=== PATIENT | female | born 1960 | race African-American/Black ===

== ENCOUNTER 2016-06-07 10:18 | Inpatient (IN) | payer MEDICARE, OTHER ==
[~2016-06-07] VITALS: Ht 170.2 cm; Wt 68.0 kg
[~2016-06-07 10:18] MED LIST: AUGMENTIN 500-1 EACH ORAL; GABAPENTIN300 MG ORAL; METHYLPREDNISOLO4 M2 PO
[2016-06-07 10:30] VITALS: BP 132/70
[2016-06-07] MEDS ORDERED: Solu-MEDROL 125mg Inj IVP ONE (10:45)
--- NOTE | 2016-06-07 10:54 | Emergency Room Report ---
History of Present Illness General Chief Complaint: Dyspnea/Respdistress Source: Patient Present Illness HPI Patient is a 55-year-old female who presented after increased difficulty breathing. Patient gradual onset of symptoms of the past few days. Patient stated that she been having difficulty with her breathing since the recently stopped raining. Patient had been taking steroids but had been off for several days due to up coming testing. The patient denied any fever. She reported having increased difficulty breathing. She was noted to have a low oxygen saturation at home. Allergies: Coded Allergies: MORPHINE (Verified Allergy, Severe, Itching, 12/09/14) BUDESONIDE (Verified Adverse Reaction, Severe, 12/09/14) shaking FORMOTEROL (Verified Adverse Reaction, Severe, 12/09/14) shaking OXYCODONE (Verified Adverse Reaction, Severe, 12/09/14) FEELS BAD/WEAK Patient History Past Medical History: see triage record Last Menstrual Period: na Reviewed Nursing Documentation: PMH: Agreed, PSxH: Agreed Nursing Documentation-PMH Past Medical History: No History, Except For Hx COPD: Yes Hx Cancer: No Hx Spinal Cord Injury: Yes Hx Memory Loss: Yes Hx Tremors: Yes Hx Vertigo: Yes Hx Dizziness: Yes Hx Headaches: Yes Hx Weakness: Yes Review of Systems All Other Systems: negative except mentioned in HPI Physical Exam Vital Signs Date Time Temp Pulse Resp B/P Pulse Ox O2 Delivery O2 Flow Rate FiO2 06/07/16 10:22 98.6 99 32 119/65 88 Room Air Sp02 EP Interpretation: reviewed, abnormal - 88 General Appearance: alert, GCS 15, moderate distress Eyes: bilateral eye PERRL ENT: normal voice, other - white patches to oropharynx Neck: full range of motion, supple Respiratory: wheezing, expiration Cardiovascular #1: normal peripheral pulses, regular rate, rhythm, no edema Gastrointestinal: normal bowel sounds, non tender, soft Musculoskeletal: normal inspection, back normal Neurologic: normal inspection, alert, oriented x3, responsive Skin: normal inspection Medical Decision Making Diagnostic Impression: Primary Impression: COPD (chronic obstructive pulmonary disease) with acute bronchitis Additional Impressions: Hypoxia Oral thrush UTI (urinary tract infection) ER Course Patient presented to shortness of breath. Differential included but was not limited to anemia, pneumonia, pneumothorax, myocardial infarction, pericardial effusion, congestive heart failure, acidosis. Because of complexity of patient' s case laboratory testing and imaging studies were ordered. I EKG and rhythm me showed normal sinus rhythm with a rate of [address] or T wave changes. Rhythm strip showed normal sinus rhythm with a rate in the 80s without PVCs or ectopy. Patient is noted to be hypoxic O2 saturation approximately 85- 88%The patient given breathing treatments as well as solu Medrol.Patient was given breathing treatments. Urinalysis was notable for evidence of infection. Patient also appears to have some thrush. Patient was given IV fluids. Dr. Martin was contacted for inpatient management Labs Test 06/07/16 10:57 06/07/16 12:30 White Blood Count 6.7 K/UL (4.8-10.8) Red Blood Count 4.28 M/UL (4.20-5.40) Hemoglobin 12.3 G/DL (12.0-16.0) Hematocrit 41.1 % (37.0-47.0) Mean Corpuscular Volume 96 FL (80-99) Mean Corpuscular Hemoglobin 28.8 PG (27.0-31.0) Mean Corpuscular Hemoglobin Concent 30.1 G/DL (32.0-36.0) Red Cell Distribution Width 17.9 % (11.6-14.8) Platelet Count 287 K/UL (150-450) Mean Platelet Volume 7.4 FL (6.5-10.1) Neutrophils (%) (Auto) 58.0 % (45.0-75.0) Lymphocytes (%) (Auto) 32.5 % (20.0-45.0) Monocytes (%) (Auto) 6.7 % (1.0-10.0) Eosinophils (%) (Auto) 1.0 % (0.0-3.0) Basophils (%) (Auto) 1.8 % (0.0-2.0) Sodium Level 144 mEQ/L (135-145) Potassium Level 4.1 mEQ/L (3.4-4.9) Chloride Level 101 mEQ/L (98-107) Carbon Dioxide Level 32 mEQ/L (20-30) Anion Gap 11 (5-15) Blood Urea Nitrogen 6 mg/dL (7-23) Creatinine 0.6 mg/dL (0.5-0.9) Estimat Glomerular Filtration Rate > 60 mL/min (>60) Glucose Level 98 mg/dL (74-106) Lactic Acid Level 1.20 mmol/L (0.66-2.22) Calcium Level 8.9 mg/dL (8.6-10.2) Total Bilirubin < 0.2 mg/dL (0.0-1.2) Aspartate Amino Transf (AST/SGOT) 17 U/L (5-40) Alanine Aminotransferase (ALT/SGPT) 14 U/L (3-33) Alkaline Phosphatase 66 U/L (35-104) Pro-B-Type Natriuretic Peptide 185 pg/mL (0-125) Total Protein 6.2 g/dL (6.6-8.7) Albumin 3.8 g/dL (3.5-5.2) Globulin 2.4 g/dL Albumin/Globulin Ratio 1.5 (1.0-2.7) Urine Color Pale yellow Urine Appearance Clear Urine pH 6 (4.5-8.0) Urine Specific [place] 1.015 (1.005-1.035) Urine Protein 1+ (NEGATIVE) Urine Glucose (UA) Negative (NEGATIVE) Urine Ketones Negative (NEGATIVE) Urine Occult Blood 4+ (NEGATIVE) Urine Nitrite Negative (NEGATIVE) Urine Bilirubin Negative (NEGATIVE) Urine Urobilinogen Normal MG/DL (0.0-1.0) Urine Leukocyte Esterase 3+ (NEGATIVE) Urine RBC 15-20 /HPF (0 - 2) Urine WBC 10-15 /HPF (0 - 2) Urine Squamous Epithelial Cells Few /LPF (NONE/OCC) Urine Bacteria Few /HPF (NONE) Rhythm Strip Diag. Results EP Interpretation: yes Rhythm: NSR, no PVC's, no ectopy Chest X-Ray Diagnostic Results EP Interpretation: No Findings: no effusion, no pneumothorax, no acute cardiopulmonary disease Number of Views: 1 Last Vital Signs Date Time Temp Pulse Resp B/P Pulse Ox O2 Delivery O2 Flow Rate FiO2 06/07/16 10:22 98.6 99 32 119/65 88 Room Air Status: unchanged Disposition: ADMITTED INPATIENT Condition: Serious Referrals: LEATHA MARTIN (PCP) James Chang Jun 07, 2016 10:54
[2016-06-07] MEDS: DuoNeb 0.5-3(2.5)mg/3ml neb HHN SCH ×15 (11:14→14:30)
[2016-06-07 11:22] LABS: BASOPHILS % (AUTO) 1.8 % (0.0-2.0); LYMPHOCYTES % (AUTO) 32.5 % (20.0-45.0); MEAN CORPUSCULAR HEMOGLOBIN 28.8 PG (27.0-31.0); MEAN CORPUSCULAR HGB CONC 30.1 G/DL (32.0-36.0); MEAN CORPUSCULAR VOLUME 96 FL (80-99); MEAN PLATELET VOLUME 7.4 FL (6.5-10.1); MONOCYTES % (AUTO) 6.7 % (1.0-10.0); PLATELET COUNT 287 K/UL (150-450); RED BLOOD COUNT 4.28 M/UL (4.20-5.40); RED CELL DISTRIBUTION WIDTH 17.9 % (11.6-14.8); WHITE BLOOD COUNT 6.7 K/UL (4.8-10.8)
[2016-06-07 11:33] LABS: ALANINE AMINOTRANSFERASE 14 U/L (3-33); ALBUMIN/GLOBULIN RATIO 1.5 (1.0-2.7); ANION GAP 11 (5-15); ASPARTATE AMINO TRANSFERASE 17 U/L (5-40); CALCIUM 8.9 mg/dL (8.6-10.2); CARBON DIOXIDE 32 mEQ/L (20-30); CHLORIDE 101 mEQ/L (98-107); CREATININE 0.6 mg/dL (0.5-0.9); GLOMERULAR FILTRATION RATE > 60 mL/min (>60); HEMOLYSIS 7; POTASSIUM 4.1 mEQ/L (3.4-4.9); SODIUM 144 mEQ/L (135-145); TOTAL PROTEIN 6.2 g/dL (6.6-8.7)
[2016-06-07 12:45] LABS: APPEARANCE,URINE CLEAR; KETONES,URINE NEGATIVE (NEGATIVE); LEUKOCYTE ESTERASE ,URINE 3+ (NEGATIVE); NITRITE,URINE NEGATIVE (NEGATIVE); PH,URINE 6 (4.5-8.0); PROTEIN,URINE 1+ (NEGATIVE); UROBILINOGEN,URINE NORMAL MG/DL (0.0-1.0)
[2016-06-07 12:53] LABS: BACTERIA,URINE FEW /HPF; RBC,URINE 15-20 /HPF (0 - 2); SQUAMOUS EPITHELIAL CELL,UR FEW /LPF (NONE/OCC)
[2016-06-07] MEDS ORDERED: cefTRIAXone 1 GM in NS 55 ML IVPB ONE (13:00)
[2016-06-07] MEDS ORDERED: SYMBICORT 16010.2 G1 IH (13:00)
[2016-06-07] MEDS ORDERED: DALIRESP500 MCG PO (13:07)
[2016-06-07] MEDS ORDERED: SIMVASTATIN10 MG ORAL (13:08)
[2016-06-07] MEDS ORDERED: SERTRALINE HCL50 MG ORAL (13:16)
[2016-06-07] MEDS ORDERED: VENTOLIN HFA18 GM INH (13:18)
[2016-06-07] MEDS ORDERED: OPSUMIT10 MG PO (13:20)
[2016-06-07] MEDS ORDERED: OMEPRAZOLE40 M1 ORAL (13:21)
[2016-06-07] MEDS ORDERED: KLONOPIN1 MG ORAL (13:22)
[2016-06-07] MEDS ORDERED: BACLOFEN10 MG ORAL (13:23)
[2016-06-07] MEDS ORDERED: IMITREX50 MG ORAL (13:26)
[2016-06-07] MEDS ORDERED: LORATADINE10 M2 PO (13:26)
[2016-06-07] MEDS ORDERED: VITAMIN B122500 MCG PO (13:30)
[2016-06-07] MEDS ORDERED: VITAMIN D1000 UNI1 ORAL (13:31)
[2016-06-07] MEDS ORDERED: VITAMIN C500 M1 ORAL (13:32)
[2016-06-07] MEDS ORDERED: PRIMIDONE50 MG PO (13:34)
[2016-06-07] MEDS ORDERED: CENTRUM SILVER1 EAC6 PO (13:35)
[2016-06-07] MEDS ORDERED: PROBIOTIC1 EAC2 PO (13:37)
[2016-06-07] MEDS ORDERED: ASPIR 8181 MG ORAL (13:40)
[2016-06-07] MEDS ORDERED: FLAX SEED OIL1000 MG PO (13:41)
--- NOTE | 2016-06-07 13:56 | Diagnostic Imaging Report ---
Indication: SOB Technique: One view of the chest Comparison: 01/12/2016 Findings: Lungs and pleural spaces are clear. Heart size is normal. Cervical spine fusion hardware is again demonstrated. There is no significant change Impression: No acute process
[2016-06-07] MEDS ORDERED: SPIRIVA18 MCG INH (14:28)
[2016-06-07] MEDS ORDERED: NS 55 ML IV ONE (15:12)
[2016-06-07 15:26] VITALS: BP 164/85
[2016-06-07] MEDS ORDERED: guaiFENesin w/Codeine 5ml Liq ud ORAL PRN (16:00)
--- NOTE | 2016-06-07 16:23 | Consultation ---
Consult Note Consult Note 55-year-old female who presented with increasing in respiratory distress and low oxygen levels. Patient notes gradual onset of symptoms of the past few days. Patient stated that she been having difficulty with her breathing with the wet weather. patient denies fevers or chills. Patient had been taking steroids but has not improved. The patient denied any ill contacts. She reported having increased difficulty breathing from her baselie. She has significantly advanced COPD Active Medications: CVS MELATONIN CAPS (MELATONIN CAPS) Take one tablet daily FLAX SEED OIL CAPS (FLAXSEED (LINSEED) CAPS) Take one tablet daily NASONEX 50 MCG/ACT NASAL SUSP (MOMETASONE FUROATE) 2 puffs qd CLARITIN 10 MG TABS (LORATADINE) Take one tablet daily EQ NICOTINE 21 MG/24HR TRANS PT24 (NICOTINE) 1 daily CVS VITAMIN C TABS (ASCORBIC ACID TABS) Take one tablet daily VITAMIN D3 5000 UNIT ORAL CAPS (CHOLECALCIFEROL) 1 tab qd B-12 500 MCG ORAL TABS (CYANOCOBALAMIN) 1 tab qd PRIMIDONE 50 MG TABS (PRIMIDONE) 1 tab bid CENTRUM SILVER ULTRA WOMENS TABS (MULTIPLE VITAMINS-MINERALS) Take one tablet daily VENTOLIN HFA 108 (90 BASE) MCG/ACT INH AERS (ALBUTEROL SULFATE) 2 puff qid prn OPSUMIT 10 MG ORAL TABS (MACITENTAN) 1 PO QD ALBUTEROL SULFATE 0.083 % NEBU (ALBUTEROL SULFATE) 1 vial bid BACLOFEN 10 MG TABS (BACLOFEN) Take one tablet three times daily ASPIR-81 81 MG ORAL TBEC (ASPIRIN) 1 qd DALIRESP 500 MCG TABS (ROFLUMILAST) 1 PO DAILY SIMVASTATIN 10 MG TABS (SIMVASTATIN) 1 tab po at bedtime OMEPRAZOLE 40 MG CPDR (OMEPRAZOLE) 1 qd SPIRIVA HANDIHALER 18 MCG CAPS (TIOTROPIUM BROMIDE MONOHYDRATE) 1 qd ADVAIR DISKUS 500-50 MCG/DOSE MISC (FLUTICASONE-SALMETEROL) 1 PUFF BID POTASSIUM CHLORIDE HANNAH CR 20 MEQ CR-TABS (POTASSIUM CHLORIDE HANNAH CR) Take one tablet today LEXAPRO 10 MG TABS (ESCITALOPRAM OXALATE) 1 daily CLONAZEPAM 2 MG TABS (CLONAZEPAM) 1 tab qhs Current Allergies (reviewed today): * OXYCONTIN (Critical) * NEURONTIN (Critical) * ADEMPUS (Critical) * MORPHINE (Critical) Past History Past Medical History (reviewed - no changes required): peptic ulcer, chronic headaches, arthritis,tremors, depression, Insomnia, COPD, Pulmonary hypertension, side effect to Revatio-; fall 2013 with left sided pain, herniated disc in lumbar region, muscle atrophy (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) mastoiditis COPD exacerbation 2014 demetrio 05/2015 ER- facial swelling 07/14/2015 ER-kidney stones Surgical History (reviewed - no changes required): 2009 Neck surgery 2012 cervical corpectomy 2010 Neck surgery/fusion 2001 Hysterectomy 1983 1987 Left ovary removed Bilateral carpal tunnel 02/2013 cervical fusion 2015-breast reduction Family History (reviewed - no changes required): Mother-heart disease, Emphysema /COPD, Diabetes Mellitus , Hypertension Father-() paralyzed, Diabetes Mellitus, bladder infection (passed 2016) sister-Diabetes Mellitus younger brother-back problems older brother-Diabetes Mellitus, Hypertension Social History (reviewed - no changes required): MAYUR is on disability. She lives at home in [place]. She is single with 1 child. Risk Factors: Smoked Tobacco Use: Current every day smoker Cigarettes: Yes -- 3/4 pack(s) per day, Year started: 1973 Years smoked: 3 weeks Smokeless Tobacco Use: Former Year started: 1966 Years used: 3 Year quit: 1970 Years Since Last Quit: 47 Passive smoke exposure: no Drug use: no HIV high-risk behavior: no Caffeine use: 0 drinks per day Alcohol use: yes Type: once in a while Drinks per day: social Exercise: yes Times per week: 2 Type of Exercise: PT Seatbelt use: 100 % Sun Exposure: occasionally Review of Systems General: fatigue better Eyes: denies blurring, diplopia, irritation, discharge, vision loss, eye pain, photophobia Ear/Nose/Throat: viral syndrome Cardiovascular: palpitations Respiratory: see HPI Gastrointestinal: Denies nausea, vomiting, diarrhea, constipation, change in bowel habits, abdominal pain, melena, hematochezia, jaundice Genitourinary: kidney stone Musculoskeletal: shoulder pain, headaches, lower back pain has worsened, pain in elbowsand arms Neurologic: vertigo neuropathy Physical Exam 164/86 22 98.4 99% on 2 liters 82 General Appearance: well nourished, well hydrated, mild distress Respiratory Respiratory Effort: no intercostal retractions or use of accessory muscles Palpation: normal fremitus Auscultation: scattered rhonchi and wheezes reduced air entry Cardiovascular Palpation: no thrill or palpable murmurs, no displacement of PMI Auscultation: S1, S2, no murmur, rub, or gallop; Carotid arteries: pulses 2+, symmetric, no bruits Peripheral Circulation: no cyanosis, clubbing, or varicosities mimmal edema Musculoskeletal Gait and Station: able to ambulate independently very alert Assessment Status of Existing Problems: Neuralgia/neuritis Sleep apnea, obstructive Pulmonary hypertension COPD with acute exacerbation Respiratory insufficiency Depression Chronic pain Plan IV solumedrol respiratory care Iv antibiotics resume meds oxygen therapy DVT prophylaxis close follow up LEATHA ARREGUIN Jun 07, 2016 16:23
[2016-06-07 16:43] VITALS: BP 126/81
[2016-06-07] MEDS: Ascorbic Acid 500mg tab ORAL SCH (17:24)
[2016-06-07 18:29] VITALS: BP 118/71
[2016-06-07] MEDS ORDERED: Albuterol ud Inhalation HHN PRN (19:00)
[2016-06-07] MEDS ORDERED: Nystatin Susp 500,000 units/5ml ORAL ONE (20:00)
[2016-06-07] MEDS ORDERED: Sertraline 50mg tab ORAL SCH (21:00)
[2016-06-07] MEDS: Solu-MEDROL 40mg Inj IVP SCH (21:32)
[2016-06-07] MEDS: Heparin 5000 units/ml inj SUBQ SCH (21:35)
[2016-06-07 22:15] VITALS: BP 124/76
[2016-06-08] MEDS: Ascorbic Acid 500mg tab ORAL SCH (08:20)
[2016-06-08] MEDS: Solu-MEDROL 40mg Inj IVP SCH ×2 (08:20→20:43)
[2016-06-08] MEDS: Heparin 5000 units/ml inj SUBQ SCH ×2 (08:21→20:44)
[2016-06-08 08:53] VITALS: BP 119/58
[2016-06-08] MEDS ORDERED: Pneumococcal Vaccine 25mcg/0.5ml IM ONE ×2 (09:00→16:00)
[2016-06-08] MEDS ORDERED: Influenza Virus Vaccine 0.5ml IM ONE ×2 (09:00→16:00)
[2016-06-08] MEDS ORDERED: Vitamin D 1000 IU Tab ORAL SCH (09:00)
[2016-06-08] MEDS ORDERED: SUMAtriptan 50mg tab ORAL PRN ×2 (09:00→14:30)
[2016-06-08] MEDS ORDERED: Aspirin EC 81mg tab ORAL SCH (09:00)
[2016-06-08] MEDS ORDERED: Albuterol 90mcg Inhaler 8gm INH PRN ×2 (09:30→13:30)
--- NOTE | 2016-06-08 11:23 | Cardiology Report ---
APPROVED REPORT EKG Measurement Heart [id number] Normal sinus rhythm Normal ECG
[2016-06-08 11:35] VITALS: BP 104/52
--- NOTE | 2016-06-08 11:50 | Pulmonology Progress Note ---
Assessment/Plan Assessment/Plan Assessment Status of Existing Problems: Neuralgia/neuritis Sleep apnea, obstructive Pulmonary hypertension COPD with acute exacerbation Respiratory insufficiency Depression Chronic pain Plan IV solumedrol as is probiotics respiratory care Iv antibiotics as is resume meds oxygen therapy as is DVT prophylaxis close follow up Subjective Allergies: Coded Allergies: MORPHINE (Verified Allergy, Severe, Itching, 12/09/14) OXYCODONE (Verified Adverse Reaction, Severe, 12/09/14) FEELS BAD/WEAK Subjective wants to go home still very tight sob noted difficult to cough Objective Last 24 Hour Vital Signs Date Time Temp Pulse Resp B/P Pulse Ox O2 Delivery O2 Flow Rate FiO2 06/08/16 11:35 97.7 85 18 104/52 95 Nasal Cannula 2.0 06/08/16 09:20 97.7 06/08/16 09:13 77 18 Nasal Cannula 2.0 28 06/08/16 08:53 97.7 76 18 119/58 94 Nasal Cannula 2.0 06/08/16 07:37 70 06/08/16 04:00 79 06/08/16 00:00 91 06/07/16 22:43 98.6 84 24 124/76 99 Nasal Cannula 2.0 28 06/07/16 22:15 98.6 84 24 124/76 99 Nasal Cannula 2.0 28 06/07/16 18:29 98.6 88 26 118/71 95 Nasal Cannula 2.0 28 06/07/16 16:43 98.6 92 20 126/81 95 Nasal Cannula 2.0 28 06/07/16 15:26 100 20 164/85 94 Nasal Cannula 2.0 Intake and Output 06/07/16 06/08/16 18:59 06:59 Intake Total 555 ml 250 ml Output Total 200 ml Balance 355 ml 250 ml Intake Oral 250 ml IV Total 555 ml Output Urine Total 200 ml # Voids 2 Objective WDWN NAD reduced breath sounds with severe wheeze [id number] without MRG NABS nontender no HSM no CCE neck brace nonfocal but confused Microbiology Date/Time Source Procedure Growth Status 06/07/16 15:10 Nasal Nares Influenza Types A,B Antigen (RUBEN) - Final Complete 06/07/16 12:30 Urine,Clean Catch Urine Culture - Preliminary NO GROWTH Resulted Laboratory Tests 06/07/16 12:30: Urine Color Pale yellow, Urine Appearance Clear, Urine pH 6, Urine Specific [place] 1.015, Urine Protein 1+H, Urine Glucose (UA) Negative, Urine Ketones Negative, Urine Occult Blood 4+H, Urine Nitrite Negative, Urine Bilirubin Negative, Urine Urobilinogen Normal, Urine Leukocyte Esterase 3+H, Urine RBC 15- 20H, Urine WBC 10-15H, Urine Squamous Epithelial Cells Few, Urine Bacteria Few Current Medications Medications (Trade) Dose Ordered Sig/Celeste Route PRN Reason Start Time Stop Time Status Last Admin Dose Admin Albuterol Sulfate (Proventil MDI) 2 puff Q4H PRN INH Shortness of Breath 06/08/16 09:30 07/08/16 09:29 Albuterol Sulfate (Proventil) 2.5 mg Q4HRT PRN HHN Shortness of Breath 06/07/16 19:00 06/12/16 18:59 Ascorbic Acid (Vitamin C) 500 mg DAILY ORAL 06/07/16 17:00 07/07/16 16:59 06/08/16 08:20 Aspirin (Ecotrin) 81 mg DAILY ORAL 06/08/16 09:00 07/08/16 08:59 06/08/16 08:20 Baclofen (Lioresal) 20 mg THREE TIMES A DAY ORAL 06/08/16 10:00 07/08/16 09:59 Budesonide/ Formoterol Fumarate (Symbicort 160/ 4.5) 2 puff BID INH 06/08/16 09:00 07/08/16 08:59 06/08/16 09:13 Ceftriaxone Sodium/Dextrose (Rocephin/D5W) 55 ml @ 110 mls/hr Q24H IVPB 06/08/16 16:00 06/15/16 15:59 Clonazepam (KlonoPIN) 2 mg QHS PRN ORAL SLEEP 06/07/16 16:00 06/14/16 15:59 Gabapentin (Neurontin) 300 mg TID ORAL 06/07/16 21:00 07/07/16 20:59 06/08/16 08:21 Guaifenesin/ Codeine Phosphate (Robitussin with codeine) 5 ml Q6H PRN ORAL For Cough 06/07/16 16:00 07/07/16 15:59 Heparin Sodium (Porcine) (Heparin 5000 units/ml) 5,000 units EVERY 12 HOURS SUBQ 06/07/16 21:00 07/07/16 20:59 06/07/16 21:35 Influenza Virus Vaccine (Flu Vaccine) 0.5 ml ONCE ONCE IM 06/08/16 09:00 06/08/16 09:01 UNV Methylprednisolone Sodium Succinate 40 mg 40 mg EVERY 12 HOURS IVP 06/07/16 21:00 07/07/16 20:59 06/08/16 08:20 Non-Formulary Medication (Non-Formulary Med) 1 ea DAILY ORAL 06/08/16 09:30 07/08/16 09:29 UNV Pantoprazole (Protonix) 40 mg ACBREAKFAST ORAL 06/08/16 06:30 07/08/16 06:29 06/08/16 06:57 Pneumococcal Polyvalent Vaccine (Pneumovax) 0.5 ml ONCE ONCE IM 06/08/16 09:00 06/08/16 09:01 UNV Primidone (Mysoline) 50 mg TID ORAL 06/07/16 21:00 07/07/16 20:59 06/08/16 08:20 Sertraline HCl (Zoloft) 50 mg QHS ORAL 06/07/16 21:00 07/07/16 20:59 06/07/16 21:32 Sumatriptan Succinate (Imitrex) 100 mg DAILY PRN ORAL MIGRAINE 06/08/16 09:00 07/08/16 08:59 Vitamin D (Vitamin D) 2,000 intlu DAILY ORAL 06/08/16 09:00 07/08/16 08:59 06/08/16 08:21 LEATHA ARREGUIN Jun 08, 2016 11:50
[2016-06-08] MEDS ORDERED: Albuterol ud Inhalation HHN PRN (15:00)
[2016-06-08 16:00] VITALS: BP 94/46
[2016-06-08] MEDS ORDERED: cefTRIAXone 1 GM in D5W 55 ML IVPB SCH (16:00)
[2016-06-08] MEDS ORDERED: guaiFENesin w/Codeine 5ml Liq ud ORAL PRN (16:00)
[2016-06-08] MEDS ORDERED: cefTRIAXone 1gm/D5W 55ml IVPB SCH ×2 (16:00)
--- NOTE | 2016-06-08 16:59 | History and Physical Report ---
DATE OF ADMISSION: 06/07/2016 CHIEF COMPLAINT: Chronic obstructive pulmonary disease exacerbation. HISTORY OF PRESENT ILLNESS: The patient is a 55-year-old female. She has a history of chronic obstructive pulmonary disease, gastroesophageal reflux disease, cervical radiculopathy, and chronic back pain. She presented from home with complaints of shortness of breath. According to the patient, she has been having a exacerbation of her chronic obstructive pulmonary disease. She was initially on steroids and antibiotics but was told to discontinue them because of a test that she was undergoing for evaluation of her dizziness. She had worsening shortness of breath and is now admitted for further evaluation for chronic obstructive pulmonary disease exacerbation. PAST MEDICAL HISTORY: As above. PAST SURGICAL HISTORY: None. CURRENT MEDICATIONS: Reconciled and reviewed. ALLERGIES: Include morphine and oxycodone. SOCIAL HISTORY: There is no known history of tobacco, ethanol, or drugs. FAMILY HISTORY: Noncontributory. REVIEW OF SYSTEMS: General: No fever or chills. HEENT: No headaches or visual changes. Cardiopulmonary: Positive shortness of breath and cough. Gastrointestinal: No nausea or vomiting. Genitourinary: No urgency or frequency. Musculoskeletal: No joint pain or swelling. Neurologic: No evidence of seizures. PHYSICAL EXAMINATION: VITAL SIGNS: Temperature 98.6, pulse 84, respirations 24, blood pressure 124/76. GENERAL: The patient is well-developed female in no apparent distress. She appears mildly dyspneic but is able to speak in full sentences. NECK: Supple. There is no jugular venous distention. HEART: Regular rate and rhythm. LUNGS: Significant for diminished breath sounds with wheezes. ABDOMEN: Soft, nontender, and nondistended. EXTREMITIES: Without clubbing, cyanosis, or edema. LABORATORY DATA: White count was 6, hemoglobin 12, and hematocrit 41. Potassium 4.1. UA showed 10 to 15 WBCs. ASSESSMENT: 1. This is a pleasant female with chronic obstructive pulmonary disease exacerbation, probably severe exacerbation from cervical radiculopathy. 2. the urinary tract infection. 3. Gastroesophageal reflux disease. PLAN: 1. Intravenous steroids, respiratory treatments, and antibiotics. 2. Followup cultures. 3. Consider pain management evaluation. 4. Pulmonary followup. Nihs Alvarado M.D. DR: Matt JOB#: [id number] CC:
[2016-06-08] MEDS: DALIRESP 500MCG TAB ORAL SCH (17:31)
[2016-06-08] MEDS: Albuterol 90mcg Inhaler 8gm INH PRN ×2 (19:59→23:09)
[2016-06-08 20:00] VITALS: BP 125/65
[2016-06-08] MEDS ORDERED: Sertraline 50mg tab ORAL SCH (21:00)
[2016-06-08] MEDS: Albuterol ud Inhalation HHN SCH ×2 (21:41→23:03)
[2016-06-09] VITALS: BP 111/57
[2016-06-09] MEDS: Albuterol ud Inhalation HHN SCH ×3 (03:18→10:38)
[2016-06-09 03:51] VITALS: BP 113/61
[2016-06-09 08:47] VITALS: BP 88/40
[2016-06-09] MEDS: Solu-MEDROL 40mg Inj IVP SCH (08:47)
[2016-06-09] MEDS: DALIRESP 500MCG TAB ORAL SCH (08:49)
[2016-06-09] MEDS: Heparin 5000 units/ml inj SUBQ SCH (08:50)
--- NOTE | 2016-06-09 08:53 | Pulmonology Progress Note ---
Assessment/Plan Assessment/Plan Assessment Status of Existing Problems: Neuralgia/neuritis Sleep apnea, obstructive Pulmonary hypertension COPD with acute exacerbation Respiratory insufficiency Depression Chronic pain Plan IV solumedrol and taper probiotics respiratory care Iv antibiotics, possibly dc home meds oxygen therapy as is DVT prophylaxis close follow up dc planning soon Subjective Allergies: Coded Allergies: MORPHINE (Verified Allergy, Severe, Itching, 12/09/14) OXYCODONE (Verified Adverse Reaction, Severe, 12/09/14) FEELS BAD/WEAK Subjective wants to go home overall better care d/w mom Objective Last 24 Hour Vital Signs Date Time Temp Pulse Resp B/P Pulse Ox O2 Delivery O2 Flow Rate FiO2 06/09/16 08:12 89 16 99 Nasal Cannula 2.0 28 06/09/16 07:55 Nasal Cannula 2.0 28 06/09/16 07:44 87 18 83 Room Air 21 06/09/16 07:42 97.4 06/09/16 07:42 84 Room Air 06/09/16 03:51 97.4 74 18 113/61 99 Nasal Cannula 2.0 06/09/16 03:21 72 18 99 Nasal Cannula 2.0 28 06/09/16 03:20 79 18 98 Nasal Cannula 2.0 28 06/09/16 00:00 98.2 87 21 111/57 97 Nasal Cannula 2.0 06/08/16 23:10 90 18 100 Nasal Cannula 2.0 28 06/08/16 23:09 90 18 98 Nasal Cannula 2.0 28 06/08/16 20:12 97.9 06/08/16 20:12 97.9 06/08/16 20:00 84 18 Nasal Cannula 2.0 28 06/08/16 20:00 97.0 73 18 125/65 98 Nasal Cannula 2.0 06/08/16 18:00 78 18 100 Nasal Cannula 2.0 28 06/08/16 17:52 90 18 100 Nasal Cannula 2.0 28 06/08/16 16:00 97.9 83 16 94/46 97 Room Air 06/08/16 11:35 97.7 85 18 104/52 95 Nasal Cannula 2.0 06/08/16 09:20 97.7 06/08/16 09:13 77 18 Nasal Cannula 2.0 28 06/08/16 08:53 97.7 76 18 119/58 94 Nasal Cannula 2.0 Intake and Output 3/21/17 3/22/17 19:00 07:00 Intake Total 360 ml 580 ml Balance 360 ml 580 ml Intake Oral 360 ml 580 ml # Voids 2 5 Objective WDWN NAD reduced breath sounds with some wheeze but better [id number] without MRG NABS nontender no HSM no CCE neck brace nonfocal and alert Microbiology Date/Time Source Procedure Growth Status 06/07/16 11:10 Blood Blood Culture - Preliminary NO GROWTH AFTER 24 HOURS Resulted 06/07/16 11:10 Blood Blood Culture - Preliminary NO GROWTH AFTER 24 HOURS Resulted 06/07/16 15:10 Nasal Nares Influenza Types A,B Antigen (RUBEN) - Final Complete 06/07/16 12:30 Urine,Clean Catch Urine Culture - Preliminary NO GROWTH AFTER 24 HOURS Resulted Current Medications Medications (Trade) Dose Ordered Sig/Celeste Route PRN Reason Start Time Stop Time Status Last Admin Dose Admin Albuterol Sulfate (Proventil MDI) 1 puff Q4H PRN INH Shortness of Breath 06/08/16 18:45 07/08/16 18:44 06/08/16 23:09 Albuterol Sulfate (Proventil) 2.5 mg Q4HRT HHN 06/08/16 19:00 06/13/16 18:59 06/09/16 08:06 Ascorbic Acid (Vitamin C) 500 mg DAILY ORAL 06/09/16 09:00 07/09/16 08:59 06/09/16 08:47 Aspirin (Ecotrin) 81 mg DAILY ORAL 06/09/16 09:00 07/09/16 08:59 06/09/16 08:47 Baclofen (Lioresal) 20 mg THREE TIMES A DAY ORAL 06/08/16 14:30 07/08/16 14:29 06/09/16 08:47 Budesonide/ Formoterol Fumarate (Symbicort 160/ 4.5) 2 puff BID INH 06/08/16 18:00 07/08/16 17:59 06/08/16 23:01 Ceftriaxone Sodium/Dextrose (Rocephin/D5W) 55 ml @ 110 mls/hr Q24H IVPB 06/08/16 16:00 06/15/16 15:59 06/08/16 16:35 Clonazepam (KlonoPIN) 2 mg HSPRN PRN ORAL SLEEP 06/08/16 21:00 06/15/16 20:59 06/08/16 21:00 Gabapentin (Neurontin) 300 mg TID ORAL 06/08/16 14:30 07/08/16 14:29 06/09/16 08:46 Guaifenesin/ Codeine Phosphate (Robitussin with codeine) 5 ml Q6H PRN ORAL For Cough 06/08/16 16:00 07/08/16 15:59 Heparin Sodium (Porcine) (Heparin 5000 units/ml) 5,000 units EVERY 12 HOURS SUBQ 06/08/16 21:00 07/08/16 20:59 Ibuprofen (Motrin) 800 mg Q8HR PRN ORAL For Pain 06/08/16 21:00 07/08/16 20:59 06/09/16 06:43 Lactobacillus Acidophilus (Culturelle) 1 tab DAILY ORAL 06/09/16 09:00 07/09/16 08:59 06/09/16 08:47 Methylprednisolone Sodium Succinate (Solu-MEDROL) 40 mg EVERY 12 HOURS IVP 06/08/16 21:00 07/08/16 20:59 06/09/16 08:47 Pantoprazole (Protonix) 40 mg ACBREAKFAST ORAL 06/09/16 06:30 07/09/16 06:29 06/09/16 06:42 Patient Own Medication (Patient's Own Med) 1 ea DAILY ORAL 06/08/16 17:00 07/08/16 16:59 06/09/16 08:49 Primidone (Mysoline) 50 mg TID ORAL 06/08/16 14:30 07/08/16 14:29 06/09/16 08:47 Sertraline HCl (Zoloft) 50 mg QHS ORAL 06/08/16 21:00 07/08/16 20:59 06/08/16 20:43 Sumatriptan Succinate (Imitrex) 100 mg DAILYPRN PRN ORAL MIGRAINE 06/08/16 14:30 07/08/16 14:29 Tiotropium [place] (Spiriva Inhaler) 1 puff QHS INH 06/08/16 22:00 07/08/16 21:59 06/09/16 08:06 Vitamin D (Vitamin D) 2,000 intlu DAILY ORAL 3/22/17 09:00 07/09/16 08:59 06/09/16 08:46 LEATHA ARREGUIN Jun 09, 2016 08:53
[2016-06-09] MEDS ORDERED: Lactobacillus-GG tablet ORAL SCH (09:00)
[2016-06-09] MEDS ORDERED: Ascorbic Acid 500mg tab ORAL SCH (09:00)
[2016-06-09] MEDS ORDERED: Vitamin D 1000 IU Tab ORAL SCH (09:00)
[2016-06-09] MEDS ORDERED: Aspirin EC 81mg tab ORAL SCH (09:00)
[2016-06-09 12:41] VITALS: BP 125/75
--- NOTE | 2016-06-09 12:43 | General Progress Note ---
Assessment/Plan Problem List: (1) COPD (chronic obstructive pulmonary disease) with acute bronchitis ICD Codes: J44.1 - COPD (chronic obstructive pulmonary disease) with acute bronchitis SNOMED: [id number] Status: stable, progressing Assessment/Plan dc on po abx and steroids resp rx pulm follow up Subjective ROS Limited/Unobtainable: No Constitutional: Reports: malaise, weakness HEENT: Reports: no symptoms Cardiovascular: Reports: no symptoms Respiratory: Reports: cough, wheezing Gastrointestinal/Abdominal: Reports: no symptoms Genitourinary: Reports: no symptoms Neurologic/Psychiatric: Reports: no symptoms Endocrine: Reports: no symptoms Hematologic/Lymphatic: Reports: no symptoms Allergies: Coded Allergies: MORPHINE (Verified Allergy, Severe, Itching, 12/09/14) OXYCODONE (Verified Adverse Reaction, Severe, 12/09/14) FEELS BAD/WEAK All Systems: reviewed and negative except above Subjective less sob and wheezing. wants to go home. no chest pain overall feels better.. Objective Last 24 Hour Vital Signs Date Time Temp Pulse Resp B/P Pulse Ox O2 Delivery O2 Flow Rate FiO2 06/09/16 10:45 87 16 Room Air 06/09/16 10:35 85 16 Room Air 06/09/16 09:45 97.4 06/09/16 09:45 97.4 06/09/16 08:47 97.5 82 21 88/40 98 Room Air 06/09/16 08:12 89 16 99 Nasal Cannula 2.0 06/09/16 07:55 Nasal Cannula 2.0 06/09/16 07:44 87 18 83 Room Air 06/09/16 07:42 97.4 06/09/16 07:42 84 Room Air 06/09/16 03:51 97.4 74 18 113/61 99 Nasal Cannula 2.0 06/09/16 03:21 72 18 99 Nasal Cannula 2.0 28 06/09/16 03:20 79 18 98 Nasal Cannula 2.0 06/09/16 00:00 98.2 87 21 111/57 97 Nasal Cannula 2.0 06/08/16 23:10 90 18 100 Nasal Cannula 2.0 28 06/08/16 23:09 90 18 98 Nasal Cannula 2.0 28 06/08/16 20:00 84 18 Nasal Cannula 2.0 28 06/08/16 20:00 97.0 73 18 125/65 98 Nasal Cannula 2.0 06/08/16 18:00 78 18 100 Nasal Cannula 2.0 28 06/08/16 17:52 90 18 100 Nasal Cannula 2.0 28 06/08/16 16:00 97.9 83 16 94/46 97 Room Air Intake and Output 06/08/16 06/09/16 19:00 07:00 Intake Total 360 ml 580 ml Balance 360 ml 580 ml Intake Oral 360 ml 580 ml # Voids 2 5 Height (Feet): 5 Height (Inches): 7.00 Weight (Pounds): 150 General Appearance: WD/WN, alert Neck: supple Cardiovascular: regular rhythm Respiratory/Chest: expiratory wheezing Abdomen: normal bowel sounds, non tender, soft, no organomegaly Edema: no edema noted Arm (L), no edema noted Arm (R), no edema noted Leg (L), no edema noted Leg (R), no edema noted Pedal (L), no edema noted Pedal (R), no edema noted Generalized MINDI MENDEZ Jun 09, 2016 12:43
[2016-06-09] MEDS ORDERED: Tubing IV Secondary IV ONE (12:59)
--- NOTE | 2016-06-11 13:10 | Discharge Summary ---
Discharge Summary Hospital Course Date of Admission Jun 07, 2016 at 11:01 Date of Discharge Jun 09, 2016 at 13:00 Admitting Diagnosis copd exacerbation, hypoxia HPI Farideh Rivera is a 55 year old female who was admitted on Jun 07, 2016 at 11:01 for Chronic Obstructive Pulmonary Disease Exacerbation Hospital Course [id number] Discharge Discharge Disposition Patient was discharged to Home with Home Health(06) Discharge Diagnoses: Martine Ayala NP Jun 11, 2016 13:10
--- NOTE | 2016-06-12 03:58 | Discharge Summary 2 SIG ---
DATE OF ADMISSION: 06/07/2016 DATE OF DISCHARGE: 06/09/2016 CONSULTANTS: Nish Alvarado M.D. BRIEF HOSPITAL COURSE: The patient is a 55-year-old female, who has history of chronic obstructive pulmonary disease, gastroesophageal reflux disease, cervical radiculopathy, and chronic back pain. She presented from home with complaints of shortness of breath. According to the patient, she has been having exacerbation of her COPD. She was initially on steroids and antibiotics, but was told to discontinue because of tests that she was undergoing for evaluation of dizziness. She had worsening of shortness of breath and she presented to ED for further evaluation of COPD exacerbation. She was given respiratory treatments and was started on IV steroids and antibiotic . Steroid and antibiotic were eventually switched to p.o. The patient was discharged home with less shortness of breath and wheezing. The patient was discharged home with home health. FINAL DIAGNOSES: 1. Acute chronic obstructive pulmonary disease exacerbation. 2. Pulmonary hypertension. 3. Obstructive sleep apnea. 4. Depression. 5. Chronic pain. Bala Martin M.D. I have been assigned to dictate discharge summary on this account and I was not involved in the patient's management. Martine Ayala N.P. DR: VIRGIE JOB#: [id number] CC: HUDSON
== END 2016-06-09 13:00 | disposition home health service (06) | DRG 191 ==
LOC: EMR 10:35 → 2E 11:01 → EDBEDREQ 21:35 → 2E 06-08 00:23 → 4W 06-08 12:48
DX: J44.0 Chronic obstructive pulmonary disease with (acute) lower respiratory infection (principal); N39.0 Urinary tract infection, site not specified; I27.2 Other secondary pulmonary hypertension; F32.9 Major depressive disorder, single episode, unspecified; M54.12 Radiculopathy, cervical region; B37.9 Candidiasis, unspecified; K21.9 Gastro-esophageal reflux disease without esophagitis; J20.9 Acute bronchitis, unspecified; J44.1 Chronic obstructive pulmonary disease with (acute) exacerbation; R09.02 Hypoxemia; G47.30 Sleep apnea, unspecified; Z23 Encounter for immunization
CPT/HCPCS: 36415; 71010; 80053; 81003; 83605; 83880; 85025; 86710; 86850; 86900; 86901; 87040; 87086; 90732; 93005; 94640; 94664; 94760; J7620; Q2036

== ENCOUNTER 2016-08-20 11:24 | Inpatient (IN) | payer MEDICARE, OTHER ==
[~2016-08-20] VITALS: Ht 170.2 cm; Wt 61.7 kg
[~2016-08-20 11:24] MED LIST changes: +ASPIR 8181 MG ORAL; +BACLOFEN10 MG ORAL; +CENTRUM SILVER1 EAC6 PO; +DALIRESP500 MCG PO; +FLAX SEED OIL1000 MG PO; +IMITREX50 MG ORAL; +KLONOPIN1 MG ORAL; +LORATADINE10 M2 PO; +OMEPRAZOLE40 M1 ORAL; +OPSUMIT10 MG PO; +PRIMIDONE50 MG PO; +PROBIOTIC1 EAC2 PO; +SERTRALINE HCL50 MG ORAL; +SIMVASTATIN10 MG ORAL; +SPIRIVA18 MCG INH; +SYMBICORT 16010.2 G1 IH; +VENTOLIN HFA18 GM INH; +VITAMIN B122500 MCG PO; +VITAMIN C500 M1 ORAL; +VITAMIN D1000 UNI1 ORAL
[2016-08-20 12:40] VITALS: BP 97/59
[2016-08-20] MEDS ORDERED: DuoNeb 0.5-3(2.5)mg/3ml neb HHN PRN (13:00)
[2016-08-20] MEDS ORDERED: Albuterol 90mcg Inhaler 8gm INH PRN (13:30)
--- NOTE | 2016-08-20 14:07 | Diagnostic Imaging Report ---
Indication: Cough Comparison: 06/07/16 A single view chest radiograph was obtained. Findings: Cardiomediastinal appearance is within normal limits for age. Pulmonary vascularity is appropriate. The diaphragmatic contour is smooth and costophrenic angles are sharp. No pleural effusions are identified. The bones are osteopenic. Cervical fusion plate projected over the lower part of the cervical spine. Impression: No acute findings
[2016-08-20] MEDS: Solu-MEDROL 40mg Inj IVP SCH ×2 (14:16→22:21)
[2016-08-20] MEDS: cefTRIAXone 1 GM in D5W 55 ML IVPB SCH (14:45)
[2016-08-20] MEDS: SUMAtriptan 100mg tab ORAL PRN (14:45)
[2016-08-20 15:05] LABS: EOSINOPHILS % (AUTO) 4.9 % (0.0-3.0); MEAN CORPUSCULAR HEMOGLOBIN 29.1 PG (27.0-31.0); MEAN CORPUSCULAR VOLUME 94 FL (80-99); MEAN PLATELET VOLUME 8.4 FL (6.5-10.1); MONOCYTES % (AUTO) 8.8 % (1.0-10.0); NEUTROPHILS % (AUTO) 55.3 % (45.0-75.0); PLATELET COUNT 261 K/UL (150-450); RED BLOOD COUNT 4.24 M/UL (4.20-5.40); RED CELL DISTRIBUTION WIDTH 18.3 % (11.6-14.8); WHITE BLOOD COUNT 5.4 K/UL (4.8-10.8)
[2016-08-20 15:26] LABS: ANION GAP 11 (5-15); CALCIUM 8.6 mg/dL (8.6-10.2); CARBON DIOXIDE 31 mEQ/L (20-30); CHLORIDE 102 mEQ/L (98-107); CREATININE 0.7 mg/dL (0.5-0.9); GLOMERULAR FILTRATION RATE > 60 mL/min (>60); HEMOLYSIS 27; POTASSIUM 4.2 mEQ/L (3.4-4.9); SODIUM 144 mEQ/L (135-145)
[2016-08-20] MEDS: DuoNeb 0.5-3(2.5)mg/3ml neb HHN SCH ×3 (15:46→23:00)
--- NOTE | 2016-08-20 15:50 | History & Physical ---
History and Physical History & Physicial Vital Signs -Extended Height: 63 inches Weight: 136.5 pounds Temperature: 98.6 degrees F (oral) Pulse rate: 102 /min Pulse rhythm: regular Respirations: 13 /min O2 Sat: 79% Blood Pressure: 95/55 mm Hg Calculations Body Mass Index: 24.27 Body Surface Area (m2): 1.65 History of Present Illness Primary complaint: Patient is here for follow up and evaluation Additional HPI: 55 year old female patient presents today for follow up appointment, Patient continues to complain of headaches and dizziness. She was noted to have a low oxygen saturation and also significant short of breath. Patient immediately placed on oxygen and admitted to the hospital. Patient notes recent exposure to wood smoke and has noted worsening in her symptoms over the past several days. she does not have oxygen at home. She is currently not doing well and is in distress. Active Medications: OPSUMIT 10 MG ORAL TABS (MACITENTAN) Take one tablet daily BANOPHEN 50 MG ORAL CAPS (DIPHENHYDRAMINE HCL) 1 PO Q6 PRN CLONAZEPAM 2 MG TABS (CLONAZEPAM) 1 tab qhs PRN IBUPROFEN 800 MG ORAL TABS (IBUPROFEN) 1 tid prn ZOLOFT 50 MG TABS (SERTRALINE HCL) 1 by mouth nightly at bedtime SYMBICORT 160-4.5 MCG/ACT AERO (BUDESONIDE-FORMOTEROL FUMARATE) 2 puff bid [facility] MELATONIN CAPS (MELATONIN CAPS) Take one tablet daily FLAX SEED OIL CAPS (FLAXSEED (LINSEED) CAPS) Take one tablet daily NASONEX 50 MCG/ACT NASAL SUSP (MOMETASONE FUROATE) 2 puffs qd [facility]S VITAMIN C TABS (ASCORBIC ACID TABS) Take one tablet daily VITAMIN D3 5000 UNIT ORAL CAPS (CHOLECALCIFEROL) 1 tab qd B-12 500 MCG ORAL TABS (CYANOCOBALAMIN) 1 tab qd CENTRUM SILVER ULTRA WOMENS TABS (MULTIPLE VITAMINS-MINERALS) Take one tablet daily VENTOLIN HFA 108 (90 BASE) MCG/ACT INH AERS (ALBUTEROL SULFATE) 2 puff qid prn ALBUTEROL SULFATE 0.083 % NEBU (ALBUTEROL SULFATE) 1 vial bid BACLOFEN 10 MG TABS (BACLOFEN) Take one tablet three times daily ASPIR-81 81 MG ORAL TBEC (ASPIRIN) 1 qd DALIRESP 500 MCG TABS (ROFLUMILAST) 1 PO DAILY SIMVASTATIN 10 MG TABS (SIMVASTATIN) 1 tab po at bedtime OMEPRAZOLE 40 MG CPDR (OMEPRAZOLE) 1 qd SPIRIVA HANDIHALER 18 MCG CAPS (TIOTROPIUM BROMIDE MONOHYDRATE) 1 qd MEDROL TABS (METHYLPREDNISOLONE TABS) as directed CEFTIN 500 MG ORAL TABS (CEFUROXIME AXETIL) Take one tablet two times daily for 7 days GUAIFENESIN-CODEINE 100-10 MG/5ML ORAL SYRP (GUAIFENESIN-CODEINE) 5cc by mouth Q4 PRN LEXAPRO 10 MG ORAL TABS (ESCITALOPRAM OXALATE) Take one tablet daily PRIMIDONE 50 MG TABS (PRIMIDONE) 1 tab bid Current Allergies (reviewed today): * OXYCONTIN (Critical) * NEURONTIN (Critical) * ADEMPUS (Critical) REVATIO (SILDENAFIL CITRATE TABS) (Critical) * MORPHINE (Critical) Past History Past Medical History (reviewed - no changes required): peptic ulcer, chronic headaches, arthritis,tremors, depression, Insomnia, COPD, Pulmonary hypertension, side effect to Revatio-; fall 2013 with left sided pain, herniated disc in lumbar region, muscle atrophy (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) mastoiditis COPD exacerbation 2014 demetrio 05/2015 ER- facial swelling 07/14/2015 ER-kidney stones 06/14/16 hospitalized for two days shortness of breath Surgical History (reviewed - no changes required): 2009 Neck surgery 2012 cervical corpectomy 2010 Neck surgery/fusion 2001 Hysterectomy 1984 1987 Left ovary removed Bilateral carpal tunnel 02/2013 cervical fusion 2016-breast reduction Family History (reviewed - no changes required): Mother-heart disease, Emphysema /COPD, Diabetes Mellitus , Hypertension Father-() paralyzed, Diabetes Mellitus, bladder infection (passed 2016) sister-Diabetes Mellitus younger brother-back problems older brother-Diabetes Mellitus, Hypertension Social History (reviewed - no changes required): MAYUR is on disability. She lives at home in [place]. She is single with 1 child. Risk Factors: Smoked Tobacco Use: Current every day smoker Cigarettes: Yes -- 3/4 pack(s) per day, Year started: 1973 Years smoked: 3 weeks Smokeless Tobacco Use: Former Year started: 1966 Years used: 3 Year quit: 1970 Years Since Last Quit: 47 Passive smoke exposure: no Drug use: no HIV high-risk behavior: no Caffeine use: 0 drinks per day Alcohol use: no Exercise: yes Times per week: 2 Type of Exercise: PT Seatbelt use: 100 % Sun Exposure: occasionally Review of Systems General: SEE HPI Eyes: denies blurring, diplopia, irritation, discharge, vision loss, eye pain, photophobia Ear/Nose/Throat: viral syndrome resolved Cardiovascular: palpitations pulmonary hypertension Respiratory: see HPI Gastrointestinal: Denies nausea, vomiting, diarrhea, constipation, change in bowel habits, abdominal pain, melena, hematochezia, jaundice Genitourinary: kidney stone Musculoskeletal: hip pain left; arthritis hands lower back pain Neurologic: vertigo neuropathy Physical Exam General Appearance: in distress sob noted Respiratory Respiratory Effort: intercostal retractions Auscultation: no rales, rhonchi; no wheezes poor air entry Cardiovascular Palpation: no thrill or palpable murmurs, no displacement of PMI Auscultation: S1, S2, no murmur, rub, or gallop; Carotid arteries: pulses 2+, symmetric, no bruits Peripheral Circulation: no cyanosis, clubbing, or varicosities mimmal edema Musculoskeletal Gait and Station: very dyspneic Assessment COPD with exacerbation Anxiety possible Pneumonia Hypoxemia Pulmonary Hypertension Anxiety Significant pain Plan Iv antibiotics IV solumedrol respiratory care oxygen ABG CXR resume home meds Close follow up for respiratory deterioration impression, plan, and exam edited and reviewed in detail care discussed with LEATHA LIVINGSTON Aug 20, 2016 15:50
[2016-08-20 16:00] VITALS: BP 107/62
[2016-08-20] MEDS ORDERED: Pneumococcal Vaccine 25mcg/0.5ml IM ONE (16:30)
[2016-08-20 20:00] VITALS: BP 96/55
[2016-08-20] MEDS: Sertraline 50mg tab ORAL SCH (20:41)
[2016-08-20] MEDS: Heparin 5000 units/ml inj SUBQ SCH (20:52)
[2016-08-20] MEDS ORDERED: Zolpidem 5mg tab ORAL PRN (21:00)
[2016-08-21] VITALS: BP 108/60
[2016-08-21] MEDS: DuoNeb 0.5-3(2.5)mg/3ml neb HHN SCH ×6 (03:27→23:00)
[2016-08-21 04:00] VITALS: BP 103/52
[2016-08-21] MEDS: Solu-MEDROL 40mg Inj IVP SCH ×3 (05:43→22:01)
[2016-08-21 08:15] VITALS: BP 111/57
[2016-08-21] MEDS: Lactobacillus-GG tablet ORAL SCH (08:52)
[2016-08-21] MEDS: Ascorbic Acid 500mg tab ORAL SCH (08:53)
[2016-08-21] MEDS: Aspirin Baby 81mg ORAL SCH (08:54)
[2016-08-21] MEDS: SUMAtriptan 100mg tab ORAL PRN (08:55)
[2016-08-21] MEDS: Heparin 5000 units/ml inj SUBQ SCH ×2 (08:56→20:46)
--- NOTE | 2016-08-21 10:19 | Pulmonology Progress Note ---
Assessment/Plan Assessment/Plan Assessment COPD with exacerbation Anxiety possible Pneumonia Hypoxemia Pulmonary Hypertension Anxiety Significant pain Plan Iv antibiotics as is IV solumedrol as is respiratory care oxygen ABG not yet done CXR reviewed resume home meds Close follow up for respiratory deterioration dc once improved impression, plan, and exam edited and reviewed in detail care discussed with RN Subjective Allergies: Coded Allergies: MORPHINE (Verified Allergy, Severe, Itching, 12/09/14) OXYCODONE (Verified Adverse Reaction, Severe, 12/09/14) FEELS BAD/WEAK Subjective better reduced sob oxygenation better reviewed findings with patient Objective Last 24 Hour Vital Signs Date Time Temp Pulse Resp B/P Pulse Ox O2 Delivery O2 Flow Rate FiO2 08/21/16 08:15 97.3 60 20 111/57 98 Room Air 08/21/16 04:00 97.7 87 18 103/52 93 Nasal Cannula 3.0 08/21/16 03:40 97 18 98 Nasal Cannula 2.0 28 08/21/16 03:29 93 18 96 Nasal Cannula 2.0 28 08/21/16 03:29 28 08/21/16 00:00 97.9 95 18 108/60 96 Nasal Cannula 3.0 08/20/16 23:15 104 18 98 Nasal Cannula 2.0 28 08/20/16 23:01 28 08/20/16 23:01 97 18 98 Nasal Cannula 2.0 08/20/16 20:00 98.2 95 18 96/55 96 Nasal Cannula 3.0 08/20/16 19:35 94 18 95 Nasal Cannula 2.0 28 08/20/16 19:23 Nasal Cannula 2.0 28 08/20/16 19:23 93 Nasal Cannula 2.0 28 08/20/16 19:22 28 08/20/16 19:22 92 20 93 Nasal Cannula 2.0 28 08/20/16 16:00 98.2 86 20 107/62 95 Nasal Cannula 2.0 08/20/16 15:53 83 14 98 Nasal Cannula 2.0 08/20/16 15:46 84 12 Nasal Cannula 28.0 98 08/20/16 15:46 84 12 98 Nasal Cannula 2.0 28 08/20/16 15:46 28 08/20/16 12:40 97.9 100 20 97/59 87 Room Air Intake and Output 08/20/16 08/21/16 19:00 07:00 Intake Total 480 ml 240 ml Balance 480 ml 240 ml Intake Oral 480 ml 240 ml # Voids 1 5 Objective WDWN NAD reduced breath sounds bilaterally with some wheeze [id number] without MRG NABS nontender no HSM no CCE nonfocal weak EOMI alert Laboratory Tests 08/20/16 14:30: White Blood Count 5.4, Red Blood Count 4.24, Hemoglobin 12.3, Hematocrit 39.8, Mean Corpuscular Volume 94, Mean Corpuscular Hemoglobin 29.1, Mean Corpuscular Hemoglobin Concent 31.0L, Red Cell Distribution Width 18.3H, Platelet Count 261 , Mean Platelet Volume 8.4, Neutrophils (%) (Auto) 55.3, Lymphocytes (%) (Auto) 29.0, Monocytes (%) (Auto) 8.8, Eosinophils (%) (Auto) 4.9H, Basophils (%) (Auto ) 2.0, Sodium Level 144, Potassium Level 4.2, Chloride Level 102, Carbon Dioxide Level 31H, Anion Gap 11, Blood Urea Nitrogen 6L, Creatinine 0.7, Estimat Glomerular Filtration Rate > 60, Glucose Level 169H, Calcium Level 8.6 Current Medications Medications (Trade) Dose Ordered Sig/Celeste Route PRN Reason Start Time Stop Time Status Last Admin Dose Admin Acetaminophen (Tylenol) 650 mg Q4H PRN ORAL Mild Pain/Temp > 100.5 08/20/16 13:00 09/19/16 12:59 Al Hydroxide/Mg Hydroxide (Mylanta) 30 ml Q4H PRN ORAL gastric discomfort 08/20/16 13:00 09/19/16 12:59 Albuterol/ Ipratropium (DuoNeb 0.5-3(2.5)mg/3ml) 3 ml Q4H PRN HHN Shortness of Breath 08/20/16 13:00 08/25/16 12:59 Albuterol/ Ipratropium (DuoNeb 0.5-3(2.5)mg/3ml) 3 ml Q4HRT HHN 08/20/16 15:00 08/25/16 14:59 08/21/16 07:33 Ascorbic Acid (Vitamin C) 500 mg DAILY ORAL 08/21/16 09:00 09/20/16 08:59 08/21/16 08:53 Aspirin (ASA) 81 mg DAILY ORAL 08/21/16 09:00 09/20/16 08:59 08/21/16 08:54 Atorvastatin Calcium (Lipitor) 10 mg BEDTIME ORAL 08/20/16 21:00 09/19/16 20:59 08/20/16 20:41 Baclofen (Lioresal) 10 mg THREE TIMES A DAY ORAL 08/20/16 18:00 09/19/16 17:59 08/21/16 08:53 Budesonide/ Formoterol Fumarate (Symbicort 160/ 4.5) 2 puff EVERY 12 HOURS INH 08/20/16 21:00 09/19/16 20:59 08/21/16 09:00 Ceftriaxone Sodium/Dextrose (Rocephin/D5W) 55 ml @ 110 mls/hr Q24H IVPB 08/20/16 14:00 08/27/16 13:59 08/20/16 14:45 Clonazepam (KlonoPIN) 2 mg HSPRN PRN ORAL For Anxiety 08/20/16 13:30 08/27/16 13:29 08/20/16 20:51 Fexofenadine HCl (Zuleika) 60 mg TWICE A DAY ORAL 08/20/16 18:00 09/19/16 17:59 08/21/16 08:54 Gabapentin (Neurontin) 300 mg DAILY ORAL 08/21/16 09:00 09/20/16 08:59 08/21/16 08:54 Heparin Sodium (Porcine) (Heparin 5000 units/ml) 5,000 units EVERY 12 HOURS SUBQ 08/20/16 21:00 09/19/16 20:59 Lactobacillus Acidophilus (Culturelle) 1 tab DAILY ORAL 08/21/16 09:00 09/20/16 08:59 08/21/16 08:52 Methylprednisolone Sodium Succinate 40 mg 40 mg EVERY 8 HOURS IVP 08/20/16 14:00 09/19/16 13:59 08/21/16 05:43 Multivitamins (Multivitamins) 1 tab DAILY ORAL 08/21/16 09:00 09/20/16 08:59 08/21/16 08:54 Non-Formulary Medication (Non-Formulary Med) 1 ea DAILY ORAL 08/21/16 09:00 09/20/16 08:59 UNV Non-Formulary Medication (Non-Formulary Med) 1 ea DAILY ORAL 08/21/16 09:00 09/20/16 08:59 UNV Pantoprazole (Protonix) 40 mg DAILY ORAL 08/21/16 09:00 09/20/16 08:59 08/21/16 08:53 Primidone (Mysoline) 50 mg TID ORAL 08/20/16 18:00 09/19/16 17:59 08/21/16 08:53 Sertraline HCl (Zoloft) 50 mg QHS ORAL 08/20/16 21:00 09/19/16 20:59 08/20/16 20:41 Sumatriptan Succinate (Imitrex) 100 mg DAILYPRN PRN ORAL Migraine 08/20/16 13:30 09/19/16 13:29 08/21/16 08:55 Vitamin D (Vitamin D) 1,000 intlu DAILY ORAL 08/21/16 09:00 09/20/16 08:59 Zolpidem Tartrate (Ambien) 5 mg HSPRN PRN ORAL Insomnia 08/20/16 21:00 09/19/16 20:59 LEATHA ARREGUIN Aug 21, 2016 10:19
[2016-08-21] MEDS: Vitamin D 1000 IU Tab ORAL SCH (10:28)
[2016-08-21] MEDS ORDERED: NS 275ml ONE (10:41)
[2016-08-21] MEDS ORDERED: Tubing IV Secondary IV ONE (10:41)
[2016-08-21 12:17] VITALS: BP 131/58
[2016-08-21] MEDS: cefTRIAXone 1 GM in D5W 55 ML IVPB SCH (14:00)
[2016-08-21 15:59] VITALS: BP 117/67
--- NOTE | 2016-08-21 16:53 | Physician Query ---
PLEASE COMPLETE THE FORM BEFORE SIGNING Dear Dr. ARREGUIN Date AUGUST 21, 2016_ [employer] [facility] [employer] Phone #: [phone] Exercise your independent professional judgment when responding to query. Questions asked do not imply particular answer is desired or expected. We greatly appreciate your clarification on this issue. Clinical Documentation States: "COPD EXACERBATION, HYPOXEMIA" - documented in H&P Clinical Findings Show: ABG:pending O2sat (on admission):_87% on room air Please clarify if the patient had any of the following conditions based on the above clinical findings: RESPIRATORY FAILURE: [] Acute Respiratory Failure [x] Acute on Chronic Respiratory Failure [] Chronic (on home O2) Respiratory Failure [] Acute Respiratory Distress [] Acute Respiratory Insufficiency [] Respiratory failure due to trauma [] Respiratory insufficiency due to trauma [] Unable to determine [] Other: Condition Present on Admission: [x] Yes [] No []Clinically Undeterminable Please also document in your Progress Notes and/or Discharge Summary and indicate if the condition was present on admission. LEATHA ARREGUIN M.D. [facility]
[2016-08-21 20:00] VITALS: BP 112/65
[2016-08-21] MEDS: Sertraline 50mg tab ORAL SCH (21:52)
[2016-08-22] VITALS: BP 134/82
[2016-08-22] MEDS: DuoNeb 0.5-3(2.5)mg/3ml neb HHN SCH ×3 (03:31→11:15)
[2016-08-22 04:00] VITALS: BP 113/62
[2016-08-22] MEDS: Solu-MEDROL 40mg Inj IVP SCH ×2 (06:03→13:24)
[2016-08-22 08:00] VITALS: BP 128/75
[2016-08-22] MEDS: Aspirin Baby 81mg ORAL SCH (08:30)
[2016-08-22] MEDS: Vitamin D 1000 IU Tab ORAL SCH (08:30)
[2016-08-22] MEDS: Lactobacillus-GG tablet ORAL SCH (08:30)
[2016-08-22] MEDS: Ascorbic Acid 500mg tab ORAL SCH (08:30)
[2016-08-22] MEDS: Heparin 5000 units/ml inj SUBQ SCH (08:31)
--- NOTE | 2016-08-22 09:01 | Pulmonology Progress Note ---
Assessment/Plan Assessment/Plan Assessment COPD with exacerbation Anxiety possible Pneumonia Hypoxemia Pulmonary Hypertension Anxiety Significant pain Plan Iv antibiotics as is IV solumedrol as is and taper in am respiratory care oxygen home meds adjust baclofen Close follow up for respiratory deterioration dc in am impression, plan, and exam edited and reviewed in detail care discussed with RN Subjective Allergies: Coded Allergies: MORPHINE (Verified Allergy, Severe, Itching, 12/09/14) OXYCODONE (Verified Adverse Reaction, Severe, 12/09/14) FEELS BAD/WEAK Subjective better reduced sob and off oxygen oxygenation better reviewed findings with patient Objective Last 24 Hour Vital Signs Date Time Temp Pulse Resp B/P Pulse Ox O2 Delivery O2 Flow Rate FiO2 08/22/16 08:00 97.2 82 18 128/75 Nasal Cannula 2.0 08/22/16 07:40 85 18 100 Nasal Cannula 2.0 28 08/22/16 07:25 81 20 100 Nasal Cannula 2.0 28 08/22/16 07:25 28 08/22/16 07:25 Nasal Cannula 2.0 28 08/22/16 07:25 100 Nasal Cannula 2.0 28 08/22/16 07:03 96.2 08/22/16 04:00 96.2 81 20 113/62 100 Simple Mask 08/22/16 03:39 82 16 99 Nasal Cannula 3.0 32 08/22/16 03:30 78 16 98 Nasal Cannula 3.0 32 08/22/16 00:45 83 18 99 Nasal Cannula 3.0 32 08/22/16 00:36 81 18 99 Nasal Cannula 3.0 32 08/22/16 00:00 97.0 80 21 134/82 100 Simple Mask 6.0 08/21/16 23:33 Nasal Cannula 3.0 08/21/16 23:33 Nasal Cannula 3.0 08/21/16 20:00 98.7 97 20 112/65 99 Nasal Cannula 3.0 08/21/16 19:54 92 20 98 Nasal Cannula 3.0 32 08/21/16 19:36 Nasal Cannula 2.0 28 08/21/16 19:36 89 18 96 Nasal Cannula 3.0 32 08/21/16 19:36 32 08/21/16 19:35 98 Nasal Cannula 3.0 32 08/21/16 15:59 98.1 81 20 117/67 99 Room Air 08/21/16 15:58 Nasal Cannula 3.0 08/21/16 15:56 Nasal Cannula 3.0 08/21/16 12:17 97.9 63 20 131/58 97 Room Air 08/21/16 11:05 82 20 98 Nasal Cannula 3.0 32 08/21/16 11:00 32 08/21/16 11:00 80 18 96 Nasal Cannula 3.0 32 Intake and Output 08/21/16 08/22/16 19:00 07:00 Intake Total 1720 ml 240 ml Balance 1720 ml 240 ml Intake Oral 1665 ml 240 ml IV Total 55 ml # Voids 4 1 Objective WDWN NAD reduced breath sounds bilaterally without wheeze [id number] without MRG NABS nontender no HSM no CCE nonfocal weak EOMI alert Microbiology Date/Time Source Procedure Growth Status 08/20/16 23:20 Sputum Gram Stain Pending Resulted 08/20/16 23:20 Sputum Sputum Culture - Preliminary NORMAL UPPER RESPIRATORY ARLENE AT 24 ... Resulted Current Medications Medications (Trade) Dose Ordered Sig/Celeste Route PRN Reason Start Time Stop Time Status Last Admin Dose Admin Acetaminophen (Tylenol) 650 mg Q4H PRN ORAL Mild Pain/Temp > 100.5 08/20/16 13:00 09/19/16 12:59 08/22/16 06:04 Al Hydroxide/Mg Hydroxide (Mylanta) 30 ml Q4H PRN ORAL gastric discomfort 08/20/16 13:00 09/19/16 12:59 Albuterol/ Ipratropium (DuoNeb 0.5-3(2.5)mg/3ml) 3 ml Q4H PRN HHN Shortness of Breath 08/20/16 13:00 08/25/16 12:59 08/22/16 00:36 Albuterol/ Ipratropium (DuoNeb 0.5-3(2.5)mg/3ml) 3 ml Q4HRT HHN 08/20/16 15:00 08/25/16 14:59 08/22/16 07:22 Ascorbic Acid (Vitamin C) 500 mg DAILY ORAL 08/21/16 09:00 09/20/16 08:59 08/22/16 08:30 Aspirin (ASA) 81 mg DAILY ORAL 08/21/16 09:00 09/20/16 08:59 08/22/16 08:30 Atorvastatin Calcium (Lipitor) 10 mg BEDTIME ORAL 08/20/16 21:00 09/19/16 20:59 08/21/16 21:53 Baclofen (Lioresal) 10 mg THREE TIMES A DAY ORAL 08/20/16 18:00 09/19/16 17:59 08/22/16 08:30 Budesonide/ Formoterol Fumarate (Symbicort 160/ 4.5) 2 puff EVERY 12 HOURS INH 08/20/16 21:00 09/19/16 20:59 08/22/16 07:22 Ceftriaxone Sodium/Dextrose (Rocephin/D5W) 55 ml @ 110 mls/hr Q24H IVPB 08/20/16 14:00 08/27/16 13:59 08/21/16 14:00 Clonazepam (KlonoPIN) 2 mg HSPRN PRN ORAL For Anxiety 08/20/16 13:30 08/27/16 13:29 08/21/16 21:53 Fexofenadine HCl (Zuleika) 60 mg TWICE A DAY ORAL 08/20/16 18:00 09/19/16 17:59 08/22/16 08:30 Gabapentin (Neurontin) 300 mg DAILY ORAL 08/21/16 09:00 09/20/16 08:59 08/22/16 08:30 Heparin Sodium (Porcine) (Heparin 5000 units/ml) 5,000 units EVERY 12 HOURS SUBQ 08/20/16 21:00 09/19/16 20:59 Lactobacillus Acidophilus (Culturelle) 1 tab DAILY ORAL 08/21/16 09:00 09/20/16 08:59 08/22/16 08:30 Methylprednisolone Sodium Succinate 40 mg 40 mg EVERY 8 HOURS IVP 08/20/16 14:00 09/19/16 13:59 08/22/16 06:03 Multivitamins (Multivitamins) 1 tab DAILY ORAL 08/21/16 09:00 09/20/16 08:59 08/22/16 08:30 Pantoprazole (Protonix) 40 mg DAILY ORAL 08/21/16 09:00 09/20/16 08:59 08/22/16 08:30 Primidone (Mysoline) 50 mg TID ORAL 08/20/16 18:00 09/19/16 17:59 08/22/16 08:29 Sertraline HCl (Zoloft) 50 mg QHS ORAL 08/20/16 21:00 09/19/16 20:59 08/21/16 21:52 Sumatriptan Succinate (Imitrex) 100 mg DAILYPRN PRN ORAL Migraine 08/20/16 13:30 09/19/16 13:29 08/21/16 08:55 Vitamin D (Vitamin D) 1,000 intlu DAILY ORAL 08/21/16 09:00 09/20/16 08:59 08/22/16 08:30 Zolpidem Tartrate (Ambien) 5 mg HSPRN PRN ORAL Insomnia 08/20/16 21:00 09/19/16 20:59 LEATHA ARREGUIN Aug 22, 2016 09:01
[2016-08-22 12:00] VITALS: BP 118/66
[2016-08-22] MEDS: cefTRIAXone 1 GM in D5W 55 ML IVPB SCH (13:24)
--- NOTE | 2016-08-24 15:20 | Discharge Summary ---
Discharge Summary Hospital Course Date of Admission Aug 20, 2016 at 12:10 Date of Discharge Aug 22, 2016 at 14:30 Admitting Diagnosis HPI Farideh Rivera is a 55 year old female who was admitted on Aug 20, 2016 at 12:10 for Chornic Obstruction Pumonary Desease, Exacerbation Hospital Course dc summary #[id number] Discharge Discharge Disposition Patient signed AMA Discharge Diagnoses: Discharge Instructions Discharge Instructions Special Instructions I have been assigned to complete a D/C Summary on this account. I was not involved in the patient management Ajith Johnson)Cynthia NP Aug 24, 2016 15:20
--- NOTE | 2016-08-25 00:15 | Discharge Summary 2 SIG ---
DATE OF ADMISSION: 08/20/2016 DATE OF DISCHARGE: 08/22/2016 REASON FOR ADMISSION: The patient is a 55-year-old female with history of COPD, peptic ulcer, arthritis, chronic headache, depression, insomnia, pulmonary hypertension with side effects , chronic pain due to the herniated disk, who was sent from the office due to acute. In the office, the patient was noted to be significantly short of breath and had low oxygen saturation. The patient was placed on oxygen and was sent to the hospital for admission. The patient also reported recent exposure to smoke, which worsen her symptoms in the past several days. ADMITTING DIAGNOSES: Include, 1. Acute chronic obstructive pulmonary disease exacerbation. 2. Acute hypoxemia. 3. Acute hypoxemic respiratory failure. 4. Possible pneumonia. 5. Pulmonary hypertension. 6. Anxiety. 7. Chronic pain. HOSPITAL STAY: The patient was admitted. The patient was started on supplemental oxygen and pulmonary toilet. The patient was started on empiric antibiotics. Chest x-ray revealed no acute cardiopulmonary disease. Sputum culture was negative. The patient was started on IV steroids, which were slowly tapered. The patient declined ABG. Home medications were resumed. Pain management was provided. On 08/22/2016, the patient decided to sign against medical advice since she was not happy with [employer] policy of nonsmoking. The risk and consequences of signing against medical advice were discussed with the patient. The patient insisted and signed the form. DISCHARGE DIAGNOSES: Include, 1. Chronic obstructive pulmonary disease exacerbation. 2. Acute hypoxemia. 3. Possible pneumonia. 4. Pulmonary hypertension. 5. Active smoker. 6. Anxiety. 7. Chronic pain. Bala Martin M.D. I have been assigned to dictate discharge summary on this account and I was not involved in the patient's management. Cynthia chaudharymalgorzata N.P. DR: PAYTON JOB#: [id number] CC:
== END 2016-08-22 14:30 | disposition left against medical advice (07) | DRG 190 ==
LOC: 4E 12:10
DX: J44.1 Chronic obstructive pulmonary disease with (acute) exacerbation (principal); J18.9 Pneumonia, unspecified organism; J96.21 Acute and chronic respiratory failure with hypoxia; I27.2 Other secondary pulmonary hypertension; F41.9 Anxiety disorder, unspecified; Z88.6 Allergy status to analgesic agent; Z88.8 Allergy status to other drugs, medicaments and biological substances; F17.200 Nicotine dependence, unspecified, uncomplicated; M51.26 Other intervertebral disc displacement, lumbar region
CPT/HCPCS: 36415; 71010; 80048; 85025; 87070; 87205; 90732; 94640; 94664; 94760; J7620

== ENCOUNTER 2017-06-01 14:50 | Emergency (ER) | payer MEDICARE, OTHER ==
[~2017-06-01] VITALS: Ht 172.7 cm; Wt 69.4 kg
--- NOTE | 2017-06-01 15:28 | Emergency Room Report ---
History of Present Illness General Chief Complaint: Upper Extremity Injury Source: Patient Present Illness HPI 56-year-old female, history of COPD, presenting with a fall. Patient states that she takes sleeping pills to help her sleep, this morning she was sleepy, tried to get out of bed and fell. Fell onto her right side, there is no head trauma or LOC. Patient got up on her own. Now complaining of right-sided rib pain and right middle finger pain. Patient also on 24-hour oxygen for COPD, states that she has her nebulizer treatment at home, states that she is short of breath but she has been that way for years. Not necessarily more short of breath than normal. No fever chills cough, no chest pain, last usage of steroids was more than a month ago Allergies: Coded Allergies: MORPHINE (Verified Allergy, Severe, Itching, 12/09/14) OXYCODONE (Verified Adverse Reaction, Severe, 12/09/14) FEELS BAD/WEAK Patient History Past Medical History: see triage record Past Surgical History: none Pertinent Family History: none Reviewed Nursing Documentation: PMH: Agreed, PSxH: Agreed Nursing Documentation-PMH Past Medical History: No History, Except For Hx Cardiac Problems: Yes Hx Hypertension: Yes Hx COPD: Yes Hx Cancer: No Hx Gastrointestinal Problems: Yes Hx Neurological Problems: Yes Hx Spinal Cord Injury: Yes Hx Memory Loss: Yes Hx Tremors: Yes Hx Vertigo: Yes Hx Dizziness: Yes Hx Headaches: Yes Hx Weakness: Yes Hx Fatigue: Yes Review of Systems All Other Systems: negative except mentioned in HPI Physical Exam Vital Signs Date Time Temp Pulse Resp B/P (MAP) Pulse Ox O2 Delivery O2 Flow Rate FiO2 06/01/17 15:12 98.4 92 18 108/61 96 Nasal Cannula 2.0 98.4 Sp02 EP Interpretation: abnormal General Appearance: alert, GCS 15, non-toxic, mild distress Head: normocephalic, atraumatic Eyes: bilateral eye normal inspection, bilateral eye PERRL, bilateral eye EOMI ENT: normal ENT inspection, normal pharynx, normal voice, moist mucus membranes Neck: normal inspection, full range of motion, supple Respiratory: speaking full sentences, wheezing, other - speaking in full sentences comfortably but wheezing Cardiovascular #1: normal inspection, regular rate, rhythm, no edema, normal capillary refill Cardiovascular #2: 2+ radial (R), 2+ radial (L) Gastrointestinal: normal inspection, non tender, soft, non-distended, no guarding Musculoskeletal: other - R sided rib tenderness, R distal phalanx middle finger ecchymosis and pain. has from Neurologic: normal inspection, alert, oriented x3, responsive, motor strength/ tone normal, sensory intact, normal gait, speech normal Psychiatric: normal inspection, judgement/insight normal, memory normal Skin: normal inspection, normal color, no rash, warm/dry, well hydrated, normal turgor Procedures Splinting Splinting : Consent: Verbal Location: middle finger splint L Pre-Made Type: metal Splint: finger splint Pre-Proc Neuro Vasc Exam: normal Post-Proc Neuro Vasc Exam: normal Patient Tolerated: Well Complications: None Medical Decision Making Diagnostic Impression: Primary Impression: Fall Additional Impressions: Musculoskeletal pain COPD (chronic obstructive pulmonary disease) ER Course 56-year-old female with fall, now with right middle finger pain and right-sided rib pain Also with increased wheezing DDX: Contusion versus fracture COPD exacerbation Plan: X-ray, nebulizer, steroids ER course: Patient has remained stable during ED stay. Given nebulizer 3, by mouth steroids, speaking complete sentences X-rays are negative, however finger splint placed on right middle finger Disposition: Patient is to be discharged to home. Prescriptions given are prednisone Patient is instructed to follow up with their primary care doctor within 5 days. Patient is instructed to follow up with orthopedic surgery in one week if right middle finger still very painful Please note that this Emergency Department Report was dictated using [email or web address] installer technology software, occasionally this can lead to erroneous entry secondary to interpretation by the dictation equipment Last Vital Signs Date Time Temp Pulse Resp B/P (MAP) Pulse Ox O2 Delivery O2 Flow Rate FiO2 06/01/17 15:12 98.4 92 18 108/61 96 Nasal Cannula 2.0 98.4 Disposition: HOME, SELF-CARE Condition: Improved Scripts Prednisone* (PREDNISONE*) 20 Mg Tablet 40 MG ORAL DAILY for 5 Days, #10 TAB Prov: Bess Dixon M.D. 06/01/17 Bess Dixon M.D. Jun 01, 2017 15:28
[2017-06-01 15:45] VITALS: BP 108/61
[2017-06-01] MEDS ORDERED: PREDNISONE20 MG ORAL (15:45)
[2017-06-01] MEDS: Albuterol ud Inhalation HHN SCH ×3 (16:23→17:10)
[2017-06-01] MEDS: Ipratropium 0.02% Inh Soln 2.5ml UD HHN SCH ×2 (16:23→17:09)
--- NOTE | 2017-06-01 16:25 | Diagnostic Imaging Report ---
Indication: Chest pain Technique: One view of the chest Comparison: 09-07 17 Findings: The lungs and pleural spaces are clear. There is central bronchial wall thickening. No acute rib fractures. No pneumothorax. Impression: No acute process
--- NOTE | 2017-06-01 16:27 | Diagnostic Imaging Report ---
Indication: Pain Technique: 3 views right hand Comparison: none Findings: Bones are osteoporotic. No acute fractures. No dislocations. The joint spaces are preserved. Impression: Negative
[2017-06-01 18:19] VITALS: BP 108/61
== END 2017-06-01 18:30 | disposition home or self-care (01) ==
LOC: EMR 18:19
DX: M79.1 Myalgia (principal); J44.9 Chronic obstructive pulmonary disease, unspecified; I10 Essential (primary) hypertension; Z88.6 Allergy status to analgesic agent; M79.644 Pain in right finger(s); R07.81 Pleurodynia; R06.2 Wheezing
CPT/HCPCS: 71101; 73130; 94640; 94664; 99284; J7512

== ENCOUNTER 2017-09-03 13:38 | Emergency (ER) | payer MEDICARE, OTHER ==
[~2017-09-03] VITALS: Ht 172.7 cm; Wt 65.8 kg
[~2017-09-03 13:38] MED LIST changes: +PREDNISONE20 MG ORAL
[2017-09-03] MEDS ORDERED: Albuterol/Ipratropium 3ml neb HHN ONE (14:15)
[2017-09-03 14:27] VITALS: BP 130/72
[2017-09-03 15:56] LABS: APPEARANCE,URINE CLEAR; BILIRUBIN, URINE NEGATIVE (NEGATIVE); GLUCOSE, URINE (UA) NEGATIVE (NEGATIVE); KETONES,URINE NEGATIVE (NEGATIVE); LEUKOCYTE ESTERASE ,URINE 1+ (NEGATIVE); NITRITE,URINE NEGATIVE (NEGATIVE); PH,URINE 7 (4.5-8.0); PROTEIN,URINE 1+ (NEGATIVE); UROBILINOGEN,URINE NORMAL MG/DL (0.0-1.0)
[2017-09-03 15:57] LABS: COLOR,URINE YELLOW
[2017-09-03] MEDS ORDERED: CEPHALEXIN500 MG ORAL (16:08)
[2017-09-03] MEDS ORDERED: PHENAZOPYRIDIN200 MG ORAL (16:08)
[2017-09-03 17:48] VITALS: BP 130/72
--- NOTE | 2017-09-03 18:22 | Diagnostic Imaging Report ---
EXAM: CT Abdomen and Pelvis Without Intravenous Contrast CLINICAL HISTORY: PAIN TECHNIQUE: Axial computed tomography images of the abdomen and pelvis without intravenous contrast. CTDI is 0.15, 13.45 mGy and DLP is 685 mGy-cm. One or more of the following dose reduction techniques were used: automated exposure control, adjustment of the mA and/or kV according to patient size, use of iterative reconstruction technique. Coronal and sagittal reformatted images were created and reviewed. COMPARISON: No relevant prior studies available. FINDINGS: Lung bases: Mild atelectasis at the right lung base. ABDOMEN: Liver: Small 6 mm nonspecific low-density lesion in the posterior segment of the right lobe of the liver which is too small to adequately characterize. Gallbladder and bile ducts: The gallbladder is grossly unremarkable for a noncontrast CT. No calcified stones. No ductal dilation. Pancreas: The pancreas is grossly unremarkable for a noncontrast CT. No ductal dilation. Spleen: The spleen is grossly unremarkable for a noncontrast CT. Adrenals: The adrenals are grossly unremarkable for a noncontrast CT. Kidneys and ureters: 2 calcifications are seen in the right kidney, the largest of which measures [address] evidence for hydronephrosis. The ureters are not well-visualized. No definite evidence for ureteral stone. A small punctate 1 mm calcification is suspected in the left kidney. Low-density lesion in the left kidney which may be related to a cyst. Evaluation is limited without IV contrast. Stomach and bowel: Evaluation of the stomach is limited secondary to poor distention. Some wall thickening of the stomach cannot be excluded. Diverticulosis without CT evidence for diverticulitis. No evidence for bowel related inflammatory changes. No evidence for significant bowel loop dilation to suggest an obstructive process. PELVIS: Appendix: The appendix is unremarkable. Bladder: The bladder is grossly unremarkable for a noncontrast CT. No stones. Reproductive: The uterus is not visualized. ABDOMEN and PELVIS: Intraperitoneal space: No free intraperitoneal fluid or free intraperitoneal gas. Bones/joints: Mild degenerative changes of the thoracolumbar spine. No acute fracture. No dislocation. Soft tissues: Small umbilical hernia containing fat only. Vasculature: Mild vascular atherosclerotic calcifications. No abdominal aortic aneurysm. Lymph nodes: Unremarkable. No enlarged lymph nodes. IMPRESSION: 1. 2 calcifications are seen in the right kidney, the largest of which measures [address] evidence for hydronephrosis. The ureters are not well-visualized. No definite evidence for ureteral stone. 2. A small punctate 1 mm calcification is suspected in the left kidney. 3. Evaluation of the stomach is limited secondary to poor distention. Some wall thickening of the stomach cannot be excluded. 4. Diverticulosis without CT evidence for diverticulitis.
--- NOTE | 2017-09-04 22:54 | Emergency Room Report ---
History of Present Illness General Chief Complaint: Abdominal Pain Source: Patient Present Illness HPI Patient is a 56-year-old female who presented after increased hematuria. Patient had reportedly been having some increased suprapubic pain. She had prior history of COPD. She reports having increased dysuria as well as having prior history of renal stones. Patient states that she was sent to the hospital to have a CT of her abdomen.The patient denies shortness of breath. She is normally on oxygen. Allergies: Coded Allergies: MORPHINE (Verified Allergy, Severe, Itching, 12/09/14) OXYCODONE (Verified Adverse Reaction, Severe, 12/09/14) FEELS BAD/WEAK Patient History Past Medical History: see triage record Reviewed Nursing Documentation: PMH: Agreed; PSxH: Agreed Nursing Documentation-PMH Past Medical History: No History, Except For Hx Cardiac Problems: Yes - heart valve,neck surgery 4times Hx Hypertension: Yes Hx COPD: Yes Hx Cancer: No Hx Gastrointestinal Problems: Yes Hx Neurological Problems: Yes Hx Spinal Cord Injury: Yes Hx Memory Loss: Yes Hx Tremors: Yes Hx Vertigo: Yes Hx Dizziness: Yes Hx Headaches: Yes Hx Weakness: Yes Hx Fatigue: Yes Review of Systems All Other Systems: negative except mentioned in HPI Physical Exam Vital Signs Date Time Temp Pulse Resp B/P (MAP) Pulse Ox O2 Delivery O2 Flow Rate FiO2 09/03/17 13:54 97.9 106 17 119/68 89 Nasal Cannula 2.0 97.9 09/03/17 15:30 28 General Appearance: well appearing, no apparent distress, alert, GCS 15 Head: normocephalic, atraumatic ENT: hearing grossly normal, normal voice Neck: full range of motion, supple Respiratory: no respiratory distress, speaking full sentences, wheezing, expiration Cardiovascular #1: normal inspection Musculoskeletal: no calf tenderness Neurologic: normal gait Psychiatric: mood/affect normal Skin: no rash Medical Decision Making Diagnostic Impression: Primary Impression: COPD (chronic obstructive pulmonary disease) Additional Impression: UTI (urinary tract infection) ER Course The patient presented for hematuria. Differential diagnosis included was not limited to urinary tract infection, renal cell carcinoma, bladder CA pyelonephritis among others.Because of complexity of patient's case imaging studies were ordered. The urinalysis showed evidence of urinary infection. Patient was given breathing treatment due to wheezing and history of COPD. The patient was given oral antibiotics in the emergency prior for what appears to be urinary infection. CT of abdomen and pelvis read by radiology showed nonobstructing renal stones without evident hydronephrosis. The patient is advised follow-up with primary care physician in one to 2 days for recheck. Patient is advised to return if any worsening condition or if any changes in status that are concerning. This report is dictated with [employer] hydrochloric acid operator software which may occasionally lead to discrepancies related to use of this software. Labs Test 09/03/17 14:19 Urine Color Yellow Urine Appearance Clear Urine pH 7 (4.5-8.0) Urine Specific [place] 1.015 (1.005-1.035) Urine Protein 1+ (NEGATIVE) Urine Glucose (UA) Negative (NEGATIVE) Urine Ketones Negative (NEGATIVE) Urine Occult Blood 5+ (NEGATIVE) Urine Nitrite Negative (NEGATIVE) Urine Bilirubin Negative (NEGATIVE) Urine Urobilinogen Normal MG/DL (0.0-1.0) Urine Leukocyte Esterase 1+ (NEGATIVE) Urine RBC 5-10 /HPF (0 - 2) Urine WBC 2-4 /HPF (0 - 2) Urine Squamous Epithelial Cells Few /LPF (NONE/OCC) Urine Bacteria Few /HPF (NONE) Last Vital Signs Date Time Temp Pulse Resp B/P (MAP) Pulse Ox O2 Delivery O2 Flow Rate FiO2 09/03/17 17:48 97.9 104 18 130/72 100 Nasal Cannula 2.0 28 97.9 Status: improved Disposition: HOME, SELF-CARE Condition: Stable Scripts Phenazopyridine Hcl* (PYRIDIUM*) 200 Mg Tablet 200 MG ORAL THREE TIMES A DAY, #14 TAB 0 Refills Prov: James Chang MD 09/03/17 Cephalexin* (KEFLEX*) 500 Mg Capsule 288 MG ORAL EVERY 6 HOURS, #28 CAP Prov: James Chang MD 09/03/17 Referrals: Bala Martin MD (PCP) Patient Instructions: Dysuria James Chang MD Sep 04, 2017 22:54
== END 2017-09-03 17:49 | disposition home or self-care (01) ==
LOC: EMR 14:30
DX: N39.0 Urinary tract infection, site not specified (principal); J44.9 Chronic obstructive pulmonary disease, unspecified; I10 Essential (primary) hypertension; Z88.5 Allergy status to narcotic agent
CPT/HCPCS: 74176; 81003; 94640; 94664; 99284; J7620

== ENCOUNTER 2017-11-04 13:03 | Inpatient (IN) | payer MEDICARE, OTHER ==
[~2017-11-04] VITALS: Ht 170.2 cm; Wt 70.8 kg
[~2017-11-04 13:03] MED LIST changes: +CEPHALEXIN500 MG ORAL; +PHENAZOPYRIDIN200 MG ORAL
[2017-11-04 13:14] VITALS: BP 105/62
[2017-11-04] MEDS ORDERED: Sodium Chloride 500ML 500 ML IV ONE (13:23)
[2017-11-04 13:34] LABS: BASOPHILS % (AUTO) 1.9 % (0.0-2.0); EOSINOPHILS % (AUTO) 3.3 % (0.0-3.0); HEMATOCRIT 42.7 % (37.0-47.0); LYMPHOCYTES % (AUTO) 29.4 % (20.0-45.0); MEAN CORPUSCULAR VOLUME 97 FL (80-99); MONOCYTES % (AUTO) 6.4 % (1.0-10.0); PLATELET COUNT 239 K/UL (150-450); RED CELL DISTRIBUTION WIDTH 12.5 % (11.6-14.8); WHITE BLOOD COUNT 4.1 K/UL (4.8-10.8)
[2017-11-04 13:48] LABS: ANION GAP 7 mmol/L (5-15); BLOOD UREA NITROGEN 10 mg/dL (7-18); CALCIUM 8.9 MG/DL (8.5-10.1); CARBON DIOXIDE 31 MMOL/L (21-32); CHLORIDE 102 MMOL/L (98-107); CREATININE 0.7 MG/DL (0.55-1.30); POTASSIUM 5.1 MMOL/L (3.5-5.1); SODIUM 140 MMOL/L (136-145)
[2017-11-04 14:01] LABS: ALANINE AMINOTRANSFERASE 18 U/L (12-78); ALBUMIN 3.2 G/DL (3.4-5.0); ALBUMIN/GLOBULIN RATIO 0.8 (1.0-2.7); ALKALINE PHOSPHATASE 91 U/L (46-116); ASPARTATE AMINO TRANSFERASE 32 U/L (15-37); BILIRUBIN,TOTAL 0.3 MG/DL (0.2-1.0); CKMB 1.2 NG/ML (0.0-3.6); CREATINE KINASE 78 U/L (26-308)
[2017-11-04] MEDS: Ipratropium 0.02% Inh Soln 2.5ml UD HHN SCH ×3 (14:04→14:46)
[2017-11-04] MEDS: Albuterol ud Inhalation HHN SCH ×3 (14:04→14:46)
--- NOTE | 2017-11-04 14:33 | Emergency Room Report ---
History of Present Illness General Chief Complaint: Chest Pain Source: Patient Present Illness HPI 57-year-old female presents ED complaining of shortness of breath times one week. history COPD. Is on home oxygen but states she feels more short of breath than baseline. Denies cough. Denies fevers or chills. States she noted moment episode of chest pain which immediately resolved. Denies chest pain at this time. Patient also complaining of headache. States the headache starts in the morning and resolves as the day goes on. Has been going on for the last 1 week. Pain is throbbing, 8 out of 10, nonradiating. Denies photophobia or blurry vision. deneis neck stiffness. notes history of prior CVA - denies slurred speech or facial droop or weakness. no other aggravting or relieving factors. denies any other associated symptoms Allergies: Coded Allergies: MORPHINE (Verified Allergy, Severe, Itching, 12/09/14) OXYCODONE (Verified Adverse Reaction, Severe, 12/09/14) FEELS BAD/WEAK Patient History Past Medical History: COPD, CVA/TIA Past Surgical History: other - neck surgery Pertinent Family History: none Social History: Denies: smoking, alcohol use, drug use Now: No Immunizations: UTD Reviewed Nursing Documentation: PMH: Agreed; PSxH: Agreed Nursing Documentation-PMH Hx Cardiac Problems: Yes - heart valve,neck surgery 4times Hx Hypertension: Yes Hx COPD: Yes Hx Cancer: No Hx Gastrointestinal Problems: Yes Hx Neurological Problems: Yes Hx Spinal Cord Injury: Yes Hx Memory Loss: Yes Hx Tremors: Yes Hx Vertigo: Yes Hx Dizziness: Yes Hx Headaches: Yes Hx Weakness: Yes Hx Fatigue: Yes Review of Systems All Other Systems: negative except mentioned in HPI Physical Exam Vital Signs Date Time Temp Pulse Resp B/P (MAP) Pulse Ox O2 Delivery O2 Flow Rate FiO2 11/04/17 13:04 98.1 114 26 105/62 88 2.0 98.1 Sp02 EP Interpretation: reviewed, normal General Appearance: no apparent distress, alert, GCS 15, non-toxic Head: normocephalic, atraumatic Eyes: bilateral eye normal inspection, bilateral eye PERRL ENT: hearing grossly normal, normal pharynx, no angioedema, normal voice Neck: full range of motion, supple/symm/no masses Respiratory: chest non-tender, decreased breath sounds, speaking full sentences , wheezing Cardiovascular #1: regular rate, rhythm, no edema Cardiovascular #2: 2+ carotid (R), 2+ carotid (L), 2+ radial (R), 2+ radial (L) , 2+ dorsalis pedis (R), 2+ dorsalis pedis (L) Gastrointestinal: normal bowel sounds, non tender, soft, non-distended, no guarding, no rebound Rectal: deferred Genitourinary: normal inspection, no CVA tenderness Musculoskeletal: back normal, gait/station normal, normal range of motion, non- tender Neurologic: alert, oriented x3, responsive, motor strength/tone normal, sensory intact, speech normal Psychiatric: judgement/insight normal, memory normal, mood/affect normal, no suicidal/homicidal ideation Reflexes: 3+ bicep (R), 3+ bicep (L), 3+ tricep (R), 3+ tricep (L), 3+ knee (R) , 3+ knee (L) Skin: normal color, no rash, warm/dry, well hydrated Lymphatic: no adenopathy Medical Decision Making Diagnostic Impression: Primary Impression: COPD (chronic obstructive pulmonary disease) Qualified Codes: J44.9 - Chronic obstructive pulmonary disease, unspecified ER Course Hospital Course 57-year-old F presenting to ED with SOB. h/o COPD Differential diagnoses include: Pneumonia, CHF exacerbation, pneumothorax, fluid overload Clinical course Patient placed on stretcher. On cardiac nurse practitioner with stable vitals. After initial history and physical, I ordered nebulizer treatments. I ordered labs, IV fluids, EKG, chest x-ray, blood cultures, UA. Labs - no leukocytosis noted, hemoglobin/hematocrit stable, electrolytes okay, lactate okay, troponins negative CXR - hyperinflated lungs. no infiltrates EKG - sinus tachycardia no acute ischemic changes interpreted by me CT Head negative Patient breathing improved but remained short of breath. Patient will require admission Case discussed with Dr. Martin and he agreed to the patient to his service for further care and support I feel this is a highly complex case requiring extensive working including EKG/ Rhythm strip, Xray/CT/US, Blood/urine lab work, repeat exams while in ED, and administration of strong opiates/narcotics for pain control, admission to hospital or close patient follow up. Diagnosis - COPD exacerbation Patient admitted to telemetry in serious condition Labs Test 11/04/17 13:23 White Blood Count 4.1 K/UL (4.8-10.8) Red Blood Count 4.40 M/UL (4.20-5.40) Hemoglobin 13.0 G/DL (12.0-16.0) Hematocrit 42.7 % (37.0-47.0) Mean Corpuscular Volume 97 FL (80-99) Mean Corpuscular Hemoglobin 29.5 PG (27.0-31.0) Mean Corpuscular Hemoglobin Concent 30.5 G/DL (32.0-36.0) Red Cell Distribution Width 12.5 % (11.6-14.8) Platelet Count 239 K/UL (150-450) Mean Platelet Volume 6.9 FL (6.5-10.1) Neutrophils (%) (Auto) 59.0 % (45.0-75.0) Lymphocytes (%) (Auto) 29.4 % (20.0-45.0) Monocytes (%) (Auto) 6.4 % (1.0-10.0) Eosinophils (%) (Auto) 3.3 % (0.0-3.0) Basophils (%) (Auto) 1.9 % (0.0-2.0) Sodium Level 140 MMOL/L (136-145) Potassium Level 5.1 MMOL/L (3.5-5.1) Chloride Level 102 MMOL/L (98-107) Carbon Dioxide Level 31 MMOL/L (21-32) Anion Gap 7 mmol/L (5-15) Blood Urea Nitrogen 10 mg/dL (7-18) Creatinine 0.7 MG/DL (0.55-1.30) Estimat Glomerular Filtration Rate > 60 mL/min (>60) Glucose Level 159 MG/DL (74-106) Calcium Level 8.9 MG/DL (8.5-10.1) Total Bilirubin 0.3 MG/DL (0.2-1.0) Aspartate Amino Transf (AST/SGOT) 32 U/L (15-37) Alanine Aminotransferase (ALT/SGPT) 18 U/L (12-78) Alkaline Phosphatase 91 U/L (46-116) Total Creatine Kinase 78 U/L (26-308) Creatine Kinase MB 1.2 NG/ML (0.0-3.6) Creatine Kinase MB Relative Index 1.5 Troponin I 0.000 ng/mL (0.000-0.056) Pro-B-Type Natriuretic Peptide 14 pg/mL (0-125) Total Protein 7.3 G/DL (6.4-8.2) Albumin 3.2 G/DL (3.4-5.0) Globulin 4.1 g/dL Albumin/Globulin Ratio 0.8 (1.0-2.7) Lipase 174 U/L (73-393) EKG Diagnostic Results Rate: tachycardiac Rhythm: NSR ST Segments: no acute changes ASA given to the pt in ED: No Rhythm Strip Diag. Results EP Interpretation: yes Rhythm: NSR, no PVC's, no ectopy Chest X-Ray Diagnostic Results Chest X-Ray Diagnostic Results : Chest X-Ray Ordered: Yes # of Views/Limited/Complete: 1 View Indication: Shortness of Breath EP Interpretation: Yes Interpretation: no consolidation, no effusion, no pneumothorax, no acute cardiopulmonary disease, other - hyperinflated lungs Impression: Other - COPD Electronically Signed by: Electronically signed by Ovidio Galarza MD CT/MRI/US Diagnostic Results CT/MRI/US Diagnostic Results : Imaging Test Ordered: CT Head Impression no acute process Last Vital Signs Date Time Temp Pulse Resp B/P (MAP) Pulse Ox O2 Delivery O2 Flow Rate FiO2 11/04/17 13:14 98.1 26 105/62 88 2.0 98.1 11/04/17 13:14 114 Status: improved Disposition: ADMITTED INPATIENT Condition: Serious Referrals: Bala Martin MD (PCP) Ovidio Galarza MD Nov 04, 2017 14:33
--- NOTE | 2017-11-04 14:35 | Diagnostic Imaging Report ---
Indication: Headache Technique: Continuous helical CT scanning of the head was performed without intravenous contrast material. Axial and coronal 5 mm sections were generated. Radiation dose was minimized using automated exposure control Dose: Total Dose Length Product - DLP 1333.[address] Dose Index - CTDIvol(s) 70.38 mGy. Comparison: none Findings: The ventricular system is normal in size and configuration. There is no shift of midline structures. No abnormal extra-axial fluid collections are noted. There is no evidence of intracerebral bleeding. No other abnormal high or low density areas are noted within the brain. There is opacification of some of the left mastoid air cells. Sclerosis indicates that there may be a chronic component. The maxillofacial sinuses are clear. The visualized orbits are unremarkable Impression: Normal CT scan of the head without contrast material. Evidence of chronic and possibly some acute left mastoiditis incidentally noted The CT scanner at [facility] is accredited by the [employer] and the scans are performed using protocols designed to limit radiation exposure to as low as reasonably achievable to attain images of sufficient resolution adequate for diagnostic evaluation.
--- NOTE | 2017-11-04 14:37 | Diagnostic Imaging Report ---
Indication: Shortness of breath Technique: One view of the chest Comparison: 08/20/2016 Findings: Patient is rotated to the right. Lungs and pleural spaces remain clear. The heart size is normal. Again demonstrated is cervical spine fusion hardware. No significant interim change Impression: No acute process
[2017-11-04] MEDS ORDERED: Acetaminophen 500mg (ES) tab ORAL ONE (15:00)
[2017-11-04 15:31] VITALS: BP 123/57
--- NOTE | 2017-11-04 17:04 | Pulmonology Progress Note ---
Subjective Allergies: Coded Allergies: MORPHINE (Verified Allergy, Severe, Itching, 12/09/14) OXYCODONE (Verified Adverse Reaction, Severe, 12/09/14) FEELS BAD/WEAK Objective Last 24 Hour Vital Signs Date Time Temp Pulse Resp B/P (MAP) Pulse Ox O2 Delivery O2 Flow Rate FiO2 11/04/17 16:53 98.0 22 111/60 93 Nasal Cannula 2.0 28 98.0 11/04/17 15:31 98.0 22 123/57 93 Nasal Cannula 2.0 28 98.0 11/04/17 14:51 98.1 11/04/17 14:46 104 22 100 Nasal Cannula 2.0 28 11/04/17 13:48 110 25 99 Nasal Cannula 2.0 28 11/04/17 13:48 110 25 Nasal Cannula 2.0 28 11/04/17 13:48 28 11/04/17 13:14 98.1 26 105/62 88 2.0 98.1 11/04/17 13:14 114 26 2.0 11/04/17 13:04 98.1 114 26 105/62 88 2.0 98.1 Laboratory Tests 11/04/17 13:23: White Blood Count 4.1L, Red Blood Count 4.40, Hemoglobin 13.0, Hematocrit 42.7, Mean Corpuscular Volume 97, Mean Corpuscular Hemoglobin 29.5, Mean Corpuscular Hemoglobin Concent 30.5L, Red Cell Distribution Width 12.5, Platelet Count 239, Mean Platelet Volume 6.9, Neutrophils (%) (Auto) 59.0, Lymphocytes (%) (Auto) 29.4, Monocytes (%) (Auto) 6.4, Eosinophils (%) (Auto) 3.3H, Basophils (%) (Auto ) 1.9, Sodium Level 140, Potassium Level 5.1, Chloride Level 102, Carbon Dioxide Level 31, Anion Gap 7, Blood Urea Nitrogen 10, Creatinine 0.7, Estimat Glomerular Filtration Rate > 60, Glucose Level 159H, Calcium Level 8.9, Total Bilirubin 0.3, Aspartate Amino Transf (AST/SGOT) 32, Alanine Aminotransferase ( ALT/SGPT) 18, Alkaline Phosphatase 91, Total Creatine Kinase 78, Creatine Kinase MB 1.2, Creatine Kinase MB Relative Index 1.5, Troponin I 0.000, Pro-B- Type Natriuretic Peptide 14, Total Protein 7.3, Albumin 3.2L, Globulin 4.1, Albumin/Globulin Ratio 0.8L, Lipase 174 Bala Martin MD Nov 04, 2017 17:04
--- NOTE | 2017-11-04 17:09 | Consultation ---
Consult Note Consult Note History of Present Illness 57 year old female patient presents with respiratory distress and COPD exacerbation. She was noted to have a low oxygen saturation and also significant short of breath. Patient has noted worsening in her symptoms over the past several days with increase in chest tightness and cough. she does have oxygen at home and is chronically using. She is currently not doing well and is in distress and requires acute admission. Patient well known to me. Pulmonary functions with very severe disease Active Medications: OPSUMIT 10 MG ORAL TABS (MACITENTAN) Take one tablet daily BANOPHEN 50 MG ORAL CAPS (DIPHENHYDRAMINE HCL) 1 PO Q6 PRN CLONAZEPAM 2 MG TABS (CLONAZEPAM) 1 tab qhs PRN IBUPROFEN 800 MG ORAL TABS (IBUPROFEN) 1 tid prn ZOLOFT 50 MG TABS (SERTRALINE HCL) 1 by mouth nightly at bedtime SYMBICORT 160-4.5 MCG/ACT AERO (BUDESONIDE-FORMOTEROL FUMARATE) 2 puff bid [facility] MELATONIN CAPS (MELATONIN CAPS) Take one tablet daily FLAX SEED OIL CAPS (FLAXSEED (LINSEED) CAPS) Take one tablet daily NASONEX 50 MCG/ACT NASAL SUSP (MOMETASONE FUROATE) 2 puffs qd [facility]S VITAMIN C TABS (ASCORBIC ACID TABS) Take one tablet daily VITAMIN D3 5000 UNIT ORAL CAPS (CHOLECALCIFEROL) 1 tab qd B-12 500 MCG ORAL TABS (CYANOCOBALAMIN) 1 tab qd CENTRUM SILVER ULTRA WOMENS TABS (MULTIPLE VITAMINS-MINERALS) Take one tablet daily VENTOLIN HFA 108 (90 BASE) MCG/ACT INH AERS (ALBUTEROL SULFATE) 2 puff qid prn ALBUTEROL SULFATE 0.083 % NEBU (ALBUTEROL SULFATE) 1 vial bid BACLOFEN 10 MG TABS (BACLOFEN) Take one tablet three times daily ASPIR-81 81 MG ORAL TBEC (ASPIRIN) 1 qd DALIRESP 500 MCG TABS (ROFLUMILAST) 1 PO DAILY SIMVASTATIN 10 MG TABS (SIMVASTATIN) 1 tab po at bedtime OMEPRAZOLE 40 MG CPDR (OMEPRAZOLE) 1 qd SPIRIVA HANDIHALER 18 MCG CAPS (TIOTROPIUM BROMIDE MONOHYDRATE) 1 qd MEDROL TABS (METHYLPREDNISOLONE TABS) as directed CEFTIN 500 MG ORAL TABS (CEFUROXIME AXETIL) Take one tablet two times daily for 7 days GUAIFENESIN-CODEINE 100-10 MG/5ML ORAL SYRP (GUAIFENESIN-CODEINE) 5cc by mouth Q4 PRN LEXAPRO 10 MG ORAL TABS (ESCITALOPRAM OXALATE) Take one tablet daily PRIMIDONE 50 MG TABS (PRIMIDONE) 1 tab bid Current Allergies (reviewed today): * OXYCONTIN (Critical) * NEURONTIN (Critical) * ADEMPUS (Critical) REVATIO (SILDENAFIL CITRATE TABS) (Critical) * MORPHINE (Critical) Past History Past Medical History peptic ulcer, chronic headaches, arthritis,tremors, depression, Insomnia, COPD, Pulmonary hypertension, mastoiditis COPD exacerbation 2014, chronic hypoxemia, possible CVA Surgical History (reviewed - no changes required): 2009 Neck surgery 2012 cervical corpectomy 2010 Neck surgery/fusion 2001 Hysterectomy 1983 1987 Left ovary removed Bilateral carpal tunnel 02/2013 cervical fusion 2015-breast reduction Family History : Mother-heart disease, Emphysema/COPD, Diabetes Mellitus , Hypertension Father-() paralyzed, Diabetes Mellitus, bladder infection (passed 2016) sister-Diabetes Mellitus younger brother-back problems older brother-Diabetes Mellitus, Hypertension Social History MAYUR is on disability. She lives at home in [place]. She is single with 1 child. Risk Factors: Smoked Tobacco Use: Current every day smoker Cigarettes: Yes -- 3/4 pack(s) per day, Year started: 1973 Years smoked: 3 weeks Smokeless Tobacco Use: Former Year started: 1966 Years used: 3 Year quit: 1970 Years Since Last Quit: 47 Passive smoke exposure: no Drug use: no HIV high-risk behavior: no Caffeine use: 0 drinks per day Alcohol use: no Exercise: yes Times per week: 2 Type of Exercise: PT Seatbelt use: 100 % Sun Exposure: occasionally Review of Systems all 10 points reviewed significant disability trying to eval for lung transplant weak chronic pain Physical Exam General Appearance: sob noted Respiratory Respiratory Effort: intercostal retractions Auscultation: no rales, rhonchi; no wheezes poor air entry Cardiovascular Palpation: no thrill or palpable murmurs, no displacement of PMI Auscultation: S1, S2, no murmur, rub, or gallop; Carotid arteries: pulses 2+, symmetric, no bruits Peripheral Circulation: no cyanosis, clubbing, or varicosities mimmal edema Musculoskeletal Gait and Station: very dyspneic, very weak abdomen negative NABS Labs Test 11/04/17 13:23 White Blood Count 4.1 K/UL (4.8-10.8) Red Blood Count 4.40 M/UL (4.20-5.40) Hemoglobin 13.0 G/DL (12.0-16.0) Hematocrit 42.7 % (37.0-47.0) Mean Corpuscular Volume 97 FL (80-99) Mean Corpuscular Hemoglobin 29.5 PG (27.0-31.0) Mean Corpuscular Hemoglobin Concent 30.5 G/DL (32.0-36.0) Red Cell Distribution Width 12.5 % (11.6-14.8) Platelet Count 239 K/UL (150-450) Mean Platelet Volume 6.9 FL (6.5-10.1) Neutrophils (%) (Auto) 59.0 % (45.0-75.0) Lymphocytes (%) (Auto) 29.4 % (20.0-45.0) Monocytes (%) (Auto) 6.4 % (1.0-10.0) Eosinophils (%) (Auto) 3.3 % (0.0-3.0) Basophils (%) (Auto) 1.9 % (0.0-2.0) Sodium Level 140 MMOL/L (136-145) Potassium Level 5.1 MMOL/L (3.5-5.1) Chloride Level 102 MMOL/L (98-107) Carbon Dioxide Level 31 MMOL/L (21-32) Anion Gap 7 mmol/L (5-15) Blood Urea Nitrogen 10 mg/dL (7-18) Creatinine 0.7 MG/DL (0.55-1.30) Estimat Glomerular Filtration Rate > 60 mL/min (>60) Glucose Level 159 MG/DL (74-106) Calcium Level 8.9 MG/DL (8.5-10.1) Total Bilirubin 0.3 MG/DL (0.2-1.0) Aspartate Amino Transf (AST/SGOT) 32 U/L (15-37) Alanine Aminotransferase (ALT/SGPT) 18 U/L (12-78) Alkaline Phosphatase 91 U/L (46-116) Total Creatine Kinase 78 U/L (26-308) Creatine Kinase MB 1.2 NG/ML (0.0-3.6) Creatine Kinase MB Relative Index 1.5 Troponin I 0.000 ng/mL (0.000-0.056) Pro-B-Type Natriuretic Peptide 14 pg/mL (0-125) Total Protein 7.3 G/DL (6.4-8.2) Albumin 3.2 G/DL (3.4-5.0) Globulin 4.1 g/dL Albumin/Globulin Ratio 0.8 (1.0-2.7) Lipase 174 U/L (73-393) Assessment COPD with exacerbation Anxiety possible respiratory infection Hypoxemia Pulmonary Hypertension Anxiety Significant pain Plan Iv antibiotics IV solumedrol respiratory care oxygen monitor for CO2 retention resume home meds Close follow up for respiratory deterioration and need for intubation DVT prophylaxis impression, plan, and exam edited and reviewed in detail care discussed with Bala Zhang MD Nov 04, 2017 17:09
[2017-11-04] MEDS ORDERED: Milk of Magnesia 30ml Ud ORAL PRN (18:29)
[2017-11-04] MEDS ORDERED: SUMAtriptan 100mg tab ORAL PRN (18:54)
[2017-11-04] MEDS: Albuterol/Ipratropium 3ml neb HHN SCH ×2 (19:30→23:31)
[2017-11-04 20:00] VITALS: BP 123/66
[2017-11-04] MEDS: cefTRIAXone 1 GM in D5W 55 ML IVPB SCH (20:41)
[2017-11-04] MEDS: Solu-MEDROL 40mg Inj IVP SCH (20:42)
[2017-11-04] MEDS: Aspirin Baby 81mg ORAL SCH (20:43)
[2017-11-04] MEDS: Sertraline 50mg tab ORAL SCH (20:44)
[2017-11-04] MEDS: Lactobacillus-GG tablet ORAL SCH (20:45)
[2017-11-04] MEDS: Heparin 5000 units/ml inj SUBQ SCH (20:53)
[2017-11-04] MEDS ORDERED: Sertraline 50mg tab ORAL SCH (21:00)
[2017-11-04] MEDS ORDERED: Zolpidem 5mg tab ORAL PRN (21:00)
[2017-11-04] MEDS: Cyclobenzaprine 10mg Tab ORAL SCH (21:33)
[2017-11-05] VITALS: BP 125/68
[2017-11-05] MEDS: Albuterol/Ipratropium 3ml neb HHN SCH ×6 (03:25→22:34)
[2017-11-05 04:00] VITALS: BP 127/73
[2017-11-05] MEDS: Cyclobenzaprine 10mg Tab ORAL SCH ×3 (05:42→21:17)
[2017-11-05 08:00] VITALS: BP 125/54
[2017-11-05] MEDS: Ascorbic Acid 500mg tab ORAL SCH (08:57)
[2017-11-05] MEDS: Pantoprazole Inj IVP SCH (08:57)
[2017-11-05] MEDS: Vitamin B-12 500mcg tab ORAL SCH (08:57)
[2017-11-05] MEDS: Solu-MEDROL 40mg Inj IVP SCH ×2 (08:57→21:19)
[2017-11-05] MEDS: Heparin 5000 units/ml inj SUBQ SCH ×2 (08:59→21:23)
--- NOTE | 2017-11-05 10:46 | Pulmonology Progress Note ---
Assessment/Plan Assessment/Plan History of Present Illness 57 year old female patient presents with respiratory distress and COPD exacerbation. She was noted to have a low oxygen saturation and also significant short of breath. Patient has noted worsening in her symptoms over the past several days with increase in chest tightness and cough. she does have oxygen at home and is chronically using. She is currently not doing well and is in distress and requires acute admission. Patient well known to me. Pulmonary functions with very severe disease Active Medications: OPSUMIT 10 MG ORAL TABS (MACITENTAN) Take one tablet daily BANOPHEN 50 MG ORAL CAPS (DIPHENHYDRAMINE HCL) 1 PO Q6 PRN CLONAZEPAM 2 MG TABS (CLONAZEPAM) 1 tab qhs PRN IBUPROFEN 800 MG ORAL TABS (IBUPROFEN) 1 tid prn ZOLOFT 50 MG TABS (SERTRALINE HCL) 1 by mouth nightly at bedtime SYMBICORT 160-4.5 MCG/ACT AERO (BUDESONIDE-FORMOTEROL FUMARATE) 2 puff bid [facility] MELATONIN CAPS (MELATONIN CAPS) Take one tablet daily FLAX SEED OIL CAPS (FLAXSEED (LINSEED) CAPS) Take one tablet daily NASONEX 50 MCG/ACT NASAL SUSP (MOMETASONE FUROATE) 2 puffs qd [facility]S VITAMIN C TABS (ASCORBIC ACID TABS) Take one tablet daily VITAMIN D3 5000 UNIT ORAL CAPS (CHOLECALCIFEROL) 1 tab qd B-12 500 MCG ORAL TABS (CYANOCOBALAMIN) 1 tab qd CENTRUM SILVER ULTRA WOMENS TABS (MULTIPLE VITAMINS-MINERALS) Take one tablet daily VENTOLIN HFA 108 (90 BASE) MCG/ACT INH AERS (ALBUTEROL SULFATE) 2 puff qid prn ALBUTEROL SULFATE 0.083 % NEBU (ALBUTEROL SULFATE) 1 vial bid BACLOFEN 10 MG TABS (BACLOFEN) Take one tablet three times daily ASPIR-81 81 MG ORAL TBEC (ASPIRIN) 1 qd DALIRESP 500 MCG TABS (ROFLUMILAST) 1 PO DAILY SIMVASTATIN 10 MG TABS (SIMVASTATIN) 1 tab po at bedtime OMEPRAZOLE 40 MG CPDR (OMEPRAZOLE) 1 qd SPIRIVA HANDIHALER 18 MCG CAPS (TIOTROPIUM BROMIDE MONOHYDRATE) 1 qd MEDROL TABS (METHYLPREDNISOLONE TABS) as directed CEFTIN 500 MG ORAL TABS (CEFUROXIME AXETIL) Take one tablet two times daily for 7 days GUAIFENESIN-CODEINE 100-10 MG/5ML ORAL SYRP (GUAIFENESIN-CODEINE) 5cc by mouth Q4 PRN LEXAPRO 10 MG ORAL TABS (ESCITALOPRAM OXALATE) Take one tablet daily PRIMIDONE 50 MG TABS (PRIMIDONE) 1 tab bid Current Allergies (reviewed today): * OXYCONTIN (Critical) * NEURONTIN (Critical) * ADEMPUS (Critical) REVATIO (SILDENAFIL CITRATE TABS) (Critical) * MORPHINE (Critical) Past History Past Medical History peptic ulcer, chronic headaches, arthritis,tremors, depression, Insomnia, COPD, Pulmonary hypertension, mastoiditis COPD exacerbation 2014, chronic hypoxemia, possible CVA Surgical History (reviewed - no changes required): 2009 Neck surgery 2012 cervical corpectomy 2010 Neck surgery/fusion 2001 Hysterectomy 1983 1987 Left ovary removed Bilateral carpal tunnel 02/2013 cervical fusion 2015-breast reduction Family History : Mother-heart disease, Emphysema/COPD, Diabetes Mellitus , Hypertension Father-() paralyzed, Diabetes Mellitus, bladder infection (passed 2016) sister-Diabetes Mellitus younger brother-back problems older brother-Diabetes Mellitus, Hypertension Social History MAYUR is on disability. She lives at home in [place]. She is single with 1 child. Risk Factors: Smoked Tobacco Use: Current every day smoker Cigarettes: Yes -- 3/4 pack(s) per day, Year started: 1973 Years smoked: 3 weeks Smokeless Tobacco Use: Former Year started: 1966 Years used: 3 Year quit: 1970 Years Since Last Quit: 47 Passive smoke exposure: no Drug use: no HIV high-risk behavior: no Caffeine use: 0 drinks per day Alcohol use: no Exercise: yes Times per week: 2 Type of Exercise: PT Seatbelt use: 100 % Sun Exposure: occasionally Review of Systems all 10 points reviewed significant disability trying to eval for lung transplant weak chronic pain Physical Exam General Appearance: sob noted Respiratory Respiratory Effort: intercostal retractions Auscultation: no rales, rhonchi; no wheezes poor air entry Cardiovascular Palpation: no thrill or palpable murmurs, no displacement of PMI Auscultation: S1, S2, no murmur, rub, or gallop; Carotid arteries: pulses 2+, symmetric, no bruits Peripheral Circulation: no cyanosis, clubbing, or varicosities mimmal edema Musculoskeletal Gait and Station: very dyspneic, very weak abdomen negative NABS Labs Test 11/04/17 13:23 White Blood Count 4.1 K/UL (4.8-10.8) Red Blood Count 4.40 M/UL (4.20-5.40) Hemoglobin 13.0 G/DL (12.0-16.0) Hematocrit 42.7 % (37.0-47.0) Mean Corpuscular Volume 97 FL (80-99) Mean Corpuscular Hemoglobin 29.5 PG (27.0-31.0) Mean Corpuscular Hemoglobin Concent 30.5 G/DL (32.0-36.0) Red Cell Distribution Width 12.5 % (11.6-14.8) Platelet Count 239 K/UL (150-450) Mean Platelet Volume 6.9 FL (6.5-10.1) Neutrophils (%) (Auto) 59.0 % (45.0-75.0) Lymphocytes (%) (Auto) 29.4 % (20.0-45.0) Monocytes (%) (Auto) 6.4 % (1.0-10.0) Eosinophils (%) (Auto) 3.3 % (0.0-3.0) Basophils (%) (Auto) 1.9 % (0.0-2.0) Sodium Level 140 MMOL/L (136-145) Potassium Level 5.1 MMOL/L (3.5-5.1) Chloride Level 102 MMOL/L (98-107) Carbon Dioxide Level 31 MMOL/L (21-32) Anion Gap 7 mmol/L (5-15) Blood Urea Nitrogen 10 mg/dL (7-18) Creatinine 0.7 MG/DL (0.55-1.30) Estimat Glomerular Filtration Rate > 60 mL/min (>60) Glucose Level 159 MG/DL (74-106) Calcium Level 8.9 MG/DL (8.5-10.1) Total Bilirubin 0.3 MG/DL (0.2-1.0) Aspartate Amino Transf (AST/SGOT) 32 U/L (15-37) Alanine Aminotransferase (ALT/SGPT) 18 U/L (12-78) Alkaline Phosphatase 91 U/L (46-116) Total Creatine Kinase 78 U/L (26-308) Creatine Kinase MB 1.2 NG/ML (0.0-3.6) Creatine Kinase MB Relative Index 1.5 Troponin I 0.000 ng/mL (0.000-0.056) Pro-B-Type Natriuretic Peptide 14 pg/mL (0-125) Total Protein 7.3 G/DL (6.4-8.2) Albumin 3.2 G/DL (3.4-5.0) Globulin 4.1 g/dL Albumin/Globulin Ratio 0.8 (1.0-2.7) Lipase 174 U/L (73-393) Assessment COPD with exacerbation Anxiety possible respiratory infection Hypoxemia Pulmonary Hypertension Anxiety Significant pain Plan Iv antibiotics IV solumedrol respiratory care oxygen monitor for CO2 retention resume home meds Close follow up for respiratory deterioration and need for intubation DVT Prophyllaxis Subjective ROS Limited/Unobtainable: No Respiratory: Reports: shortness of breath Allergies: Coded Allergies: MORPHINE (Verified Allergy, Severe, Itching, 12/09/14) RIOCIGUAT (Verified Allergy, Severe, 11/04/17) SILDENAFIL (Verified Allergy, Severe, 11/04/17) OXYCODONE (Verified Adverse Reaction, Severe, 12/09/14) FEELS BAD/WEAK Objective Last 24 Hour Vital Signs Date Time Temp Pulse Resp B/P (MAP) Pulse Ox O2 Delivery O2 Flow Rate FiO2 11/05/17 08:58 97.9 11/05/17 07:49 103 18 98 Nasal Cannula 2.0 28 11/05/17 07:39 97 Nasal Cannula 2.0 28 11/05/17 07:39 Nasal Cannula 2.0 28 11/05/17 07:39 97 18 94 Nasal Cannula 2.0 28 11/05/17 04:00 97.9 95 21 127/73 (91) 95 97.9 11/05/17 04:00 108 11/05/17 03:35 104 18 99 Nasal Cannula 2.0 28 11/05/17 03:25 102 18 97 Nasal Cannula 2.0 28 11/05/17 00:00 98.8 98 18 125/68 (87) 95 98.8 11/05/17 00:00 116 11/04/17 23:42 108 20 99 Nasal Cannula 2.0 28 11/04/17 23:31 111 22 95 Nasal Cannula 2.0 28 11/04/17 21:00 Nasal Cannula 2.0 11/04/17 20:00 100.0 98 22 123/66 (85) 95 100.0 11/04/17 20:00 99 11/04/17 19:40 102 20 99 Nasal Cannula 2.0 28 11/04/17 19:30 96 Nasal Cannula 2.0 28 11/04/17 19:30 Nasal Cannula 2.0 28 11/04/17 19:30 95 18 96 Nasal Cannula 2.0 28 11/04/17 16:53 98.0 22 111/60 93 Nasal Cannula 2.0 28 98.0 11/04/17 16:30 Nasal Cannula 2.0 11/04/17 16:30 105 11/04/17 15:31 98.0 22 123/57 93 Nasal Cannula 2.0 28 98.0 11/04/17 14:51 98.1 11/04/17 14:46 104 22 100 Nasal Cannula 2.0 28 11/04/17 13:48 110 25 99 Nasal Cannula 2.0 28 11/04/17 13:48 110 25 Nasal Cannula 2.0 28 11/04/17 13:48 28 11/04/17 13:14 98.1 26 105/62 88 2.0 98.1 11/04/17 13:14 114 26 2.0 11/04/17 13:04 98.1 114 26 105/62 88 2.0 98.1 Intake and Output 11/04/17 11/05/17 19:00 07:00 Intake Total 120 ml 440 ml Balance 120 ml 440 ml Intake Oral 120 ml 440 ml # Voids 3 Laboratory Tests 11/04/17 13:23: White Blood Count 4.1L, Red Blood Count 4.40, Hemoglobin 13.0, Hematocrit 42.7, Mean Corpuscular Volume 97, Mean Corpuscular Hemoglobin 29.5, Mean Corpuscular Hemoglobin Concent 30.5L, Red Cell Distribution Width 12.5, Platelet Count 239, Mean Platelet Volume 6.9, Neutrophils (%) (Auto) 59.0, Lymphocytes (%) (Auto) 29.4, Monocytes (%) (Auto) 6.4, Eosinophils (%) (Auto) 3.3H, Basophils (%) (Auto ) 1.9, Sodium Level 140, Potassium Level 5.1, Chloride Level 102, Carbon Dioxide Level 31, Anion Gap 7, Blood Urea Nitrogen 10, Creatinine 0.7, Estimat Glomerular Filtration Rate > 60, Glucose Level 159H, Calcium Level 8.9, Total Bilirubin 0.3, Aspartate Amino Transf (AST/SGOT) 32, Alanine Aminotransferase ( ALT/SGPT) 18, Alkaline Phosphatase 91, Total Creatine Kinase 78, Creatine Kinase MB 1.2, Creatine Kinase MB Relative Index 1.5, Troponin I 0.000, Pro-B- Type Natriuretic Peptide 14, Total Protein 7.3, Albumin 3.2L, Globulin 4.1, Albumin/Globulin Ratio 0.8L, Lipase 174 Current Medications Medications (Trade) Dose Ordered Sig/Celeste Route PRN Reason Start Time Stop Time Status Last Admin Dose Admin Acetaminophen (Tylenol) 650 mg Q4H PRN ORAL Mild Pain/Temp > 100.5 11/04/17 18:29 12/04/17 18:28 11/05/17 08:58 Al Hydroxide/Mg Hydroxide (Mylanta) 30 ml Q6H PRN ORAL HEARTBURN 11/04/17 18:29 12/04/17 18:28 Albuterol/ Ipratropium (Albuterol/ Ipratropium) 3 ml Q4HRT HHN 11/04/17 19:00 11/09/17 18:59 11/05/17 07:39 Amitriptyline HCl (Elavil) 50 mg BEDTIME ORAL 11/04/17 21:00 12/04/17 20:59 11/04/17 20:44 Ascorbic Acid (Vitamin C) 500 mg DAILY ORAL 11/05/17 09:00 12/05/17 08:59 11/05/17 08:57 Aspirin (ASA) 81 mg BEDTIME ORAL 11/04/17 21:00 12/04/17 20:59 11/04/17 20:43 Atorvastatin Calcium (Lipitor) 10 mg BEDTIME ORAL 11/04/17 21:00 12/04/17 20:59 11/04/17 20:45 Barium Sulfate (Readi-Cat 2) 450 ml NOW PRN ORAL Radiology Procedure 11/05/17 09:15 11/07/17 09:10 Ceftriaxone Sodium 1 gm/ Dextrose 55 ml @ 110 mls/hr Q24H IVPB 11/04/17 20:00 11/11/17 19:59 11/04/17 20:41 Cyanocobalamin (Vitamin B-12) 2,500 mcg DAILY ORAL 11/05/17 09:00 12/05/17 08:59 11/05/17 08:57 Cyclobenzaprine HCl (Flexeril) 10 mg Q8HR ORAL 11/04/17 22:00 12/04/17 21:59 11/05/17 05:42 Gabapentin (Neurontin) 300 mg THREE TIMES A DAY ORAL 11/05/17 09:00 12/05/17 08:59 11/05/17 08:58 Heparin Sodium (Porcine) (Heparin 5000 units/ml) 5,000 units EVERY 12 HOURS SUBQ 11/04/17 21:00 12/04/17 20:59 11/05/17 08:59 Lactobacillus Acidophilus (Culturelle) 1 tab BEDTIME ORAL 11/04/17 21:00 12/04/17 20:59 11/04/17 20:45 Magnesium Hydroxide (Mom) 30 ml DAILYPRN PRN ORAL Constipation 11/04/17 18:29 12/04/17 18:28 Methylprednisolone Sodium Succinate (Solu-MEDROL) 60 mg EVERY 12 HOURS IVP 11/04/17 21:00 12/04/17 20:59 11/05/17 08:57 Pantoprazole (Protonix) 40 mg DAILY IVP 11/05/17 09:00 12/05/17 08:59 11/05/17 08:57 Primidone (Mysoline) 50 mg EVERY 8 HOURS ORAL 11/04/17 22:00 12/04/17 21:59 11/05/17 05:40 Sertraline HCl (Zoloft) 50 mg BEDTIME ORAL 11/04/17 21:00 12/04/17 20:59 11/04/17 20:44 Sumatriptan Succinate (Imitrex) 100 mg DAILY PRN ORAL MIGRAINE 11/04/17 18:54 12/04/17 18:53 Zolpidem Tartrate (Ambien) 5 mg HSPRN PRN ORAL Insomnia 11/04/17 21:00 11/11/17 20:59 11/04/17 20:56 Martin Muñoz MD Nov 05, 2017 10:46
[2017-11-05 12:00] VITALS: BP 108/77
--- NOTE | 2017-11-05 12:09 | Diagnostic Imaging Report ---
EXAM: CT Abdomen and Pelvis Without Intravenous Contrast CLINICAL HISTORY: FLANK TECHNIQUE: Axial computed tomography images of the abdomen and pelvis without intravenous contrast. CTDI is 16.29 mGy and DLP is 769 mGy-cm. One or more of the following dose reduction techniques were used: automated exposure control, adjustment of the mA and/or kV according to patient size, use of iterative reconstruction technique. COMPARISON: CT abdomen and pelvis dated 09/03/17 FINDINGS: Lung bases: Unremarkable. No mass. No consolidation. ABDOMEN: Liver: Unremarkable. Gallbladder and bile ducts: Unremarkable. No calcified stones. No ductal dilation. Pancreas: Unremarkable. No ductal dilation. Spleen: Unremarkable. No splenomegaly. Adrenals: Unremarkable. No mass. Kidneys and ureters: Nonobstructive right nephrolithiasis, with a 9 mm stone and separate 6 mm stone identified in the right lower renal pole. 1.3 cm hypodensity in the left upper pole renal cortex, most likely representing a simple cyst. Stomach and bowel: Scattered diverticula in the descending and sigmoid colon without wall thickening or adjacent inflammatory change. No obstruction. PELVIS: Appendix: No findings to suggest acute appendicitis. Bladder: Unremarkable. No stones. Reproductive: The uterus and ovaries are not visualized and may be surgically absent. ABDOMEN and PELVIS: Intraperitoneal space: Unremarkable. No free air. No significant fluid collection. Bones/joints: No acute fracture. No dislocation. Soft tissues: Tiny fat-containing umbilical hernia. Vasculature: Atherosclerotic calcifications throughout the abdominal aorta and its proximal branches. No abnormal dilatation. Lymph nodes: Unremarkable. No enlarged lymph nodes. IMPRESSION: 1. Nonobstructive right nephrolithiasis, with a 9 mm stone and separate 6 mm stone identified in the right lower renal pole. No hydronephrosis or hydroureter. 2. Descending and sigmoid colonic diverticulosis without evidence of acute inflammation.
--- NOTE | 2017-11-05 12:15 | History and Physical Report ---
DATE OF ADMISSION: 11/04/2017 CHIEF COMPLAINT: Fall and shortness of breath. HISTORY OF PRESENT ILLNESS: The patient is a pleasant female. She has a history of chronic back pain, hypertension, COPD. She presented from home after she apparently fell. She was outside trying to clean spider webs from her windows when she fell while getting down. She fell down and slipped on some bricks and sustained abrasions. She developed worsening shortness of breath and presented to the emergency room. There, she was noted to be having a COPD exacerbation. She has been started on intravenous steroids, is now admitted for further evaluation and care. PAST MEDICAL HISTORY: As above. PAST SURGICAL HISTORY: None. CURRENT MEDICATIONS: Reconciled and reviewed. ALLERGIES: None. FAMILY HISTORY: None. SOCIAL HISTORY: Negative for alcohol or drugs. The patient is a prior smoker. REVIEW OF SYSTEMS: GENERAL: No fever or chills. HEENT: No headaches or visual changes. CARDIOPULMONARY: No chest pain. Positive shortness of breath. GASTROINTESTINAL: No nausea or vomiting. Positive left-sided flank pain. GENITOURINARY: No urgency or frequency. MUSCULOSKELETAL: Positive right elbow, back, and shoulder pain. NEUROLOGIC: No evidence of seizures. PHYSICAL EXAMINATION: VITAL SIGNS: Temperature 98, pulse 108, respirations 21, and blood pressure 127/73. GENERAL: The patient is a well-developed, thin female, in no apparent distress. She is able to speak in full sentences. NECK: Supple. HEART: Regular rate and rhythm. LUNGS: Significant for bilateral wheezes with [id number] air movement. ABDOMEN: Soft, nontender, and nondistended. EXTREMITIES: Without clubbing, cyanosis, or edema. LABORATORY DATA: White count 4, hemoglobin 13, hematocrit 42, and platelets of 239. Sodium 140, potassium 5.1. Chest x-ray is clear. ASSESSMENT: This is a pleasant female, admitted with COPD exacerbation. 1. COPD exacerbation. 2. Multiple abrasions secondary to fall. 3. Flank pain, rule out kidney stone. 4. History of hypertension and chronic pain. PLAN: Intravenous steroids. Respiratory treatments [id number]. Supplemental oxygen. CT urogram to rule out kidney stone. Check urinalysis. Continue pain medications and supplemental oxygen. Continue respiratory treatments [id number]. Pulmonary evaluation is pending. Nish Alvarado M.D. DR: MARTHA JOB#: [id number] CC:
[2017-11-05 16:00] VITALS: BP 107/69
[2017-11-05 20:00] VITALS: BP 125/54
[2017-11-05] MEDS: Aspirin Baby 81mg ORAL SCH (21:16)
[2017-11-05] MEDS: Sertraline 50mg tab ORAL SCH (21:18)
[2017-11-05] MEDS: Lactobacillus-GG tablet ORAL SCH (21:18)
[2017-11-05] MEDS: cefTRIAXone 1 GM in D5W 55 ML IVPB SCH (21:19)
[2017-11-06] VITALS: BP 140/72
[2017-11-06] MEDS: Albuterol/Ipratropium 3ml neb HHN SCH ×6 (03:37→23:09)
[2017-11-06 04:00] VITALS: BP 128/73
[2017-11-06] MEDS: Cyclobenzaprine 10mg Tab ORAL SCH ×3 (06:07→23:29)
[2017-11-06 08:00] VITALS: BP 116/67
[2017-11-06] MEDS: Vitamin B-12 500mcg tab ORAL SCH (08:20)
[2017-11-06] MEDS: Ascorbic Acid 500mg tab ORAL SCH (08:20)
[2017-11-06] MEDS: Solu-MEDROL 40mg Inj IVP SCH (08:20)
[2017-11-06] MEDS: Heparin 5000 units/ml inj SUBQ SCH ×2 (08:20→21:45)
[2017-11-06] MEDS: Pantoprazole Inj IVP SCH (08:20)
--- NOTE | 2017-11-06 08:41 | General Progress Note ---
Assessment/Plan Problem List: (1) Chest pain ICD Codes: R07.9 - Chest pain SNOMED: 20424297 (2) COPD (chronic obstructive pulmonary disease) with acute bronchitis ICD Codes: J44.1 - COPD (chronic obstructive pulmonary disease) with acute bronchitis SNOMED: 81659655 (3) Fall ICD Codes: W19.XXXA - Unspecified fall, initial encounter SNOMED: 8013192, 559240092 (4) Musculoskeletal pain ICD Codes: M79.1 - Myalgia SNOMED: 404534517 (5) UTI (urinary tract infection) ICD Codes: N39.0 - Urinary tract infection, site not specified SNOMED: 76887708 (6) COPD (chronic obstructive pulmonary disease) ICD Codes: J44.9 - Chronic obstructive pulmonary disease, unspecified SNOMED: 58783575 Qualifiers: Qualified Codes: J44.9 - Chronic obstructive pulmonary disease, unspecified Status: stable, progressing Assessment/Plan iv steroids pain rx abx dvt/stress ulcer prophylaxis Subjective ROS Limited/Unobtainable: No Constitutional: Reports: malaise, weakness HEENT: Reports: no symptoms Cardiovascular: Reports: no symptoms Respiratory: Reports: shortness of breath Gastrointestinal/Abdominal: Reports: no symptoms Genitourinary: Reports: no symptoms Neurologic/Psychiatric: Reports: no symptoms Endocrine: Reports: no symptoms Hematologic/Lymphatic: Reports: no symptoms Allergies: Coded Allergies: MORPHINE (Verified Allergy, Severe, Itching, 12/09/14) RIOCIGUAT (Verified Allergy, Severe, 11/04/17) SILDENAFIL (Verified Allergy, Severe, 11/04/17) OXYCODONE (Verified Adverse Reaction, Severe, 12/09/14) FEELS BAD/WEAK All Systems: reviewed and negative except above Subjective decreased sob. CT results reviewed with pt. +stone in renal cortex. Objective Last 24 Hour Vital Signs Date Time Temp Pulse Resp B/P (MAP) Pulse Ox O2 Delivery O2 Flow Rate FiO2 11/06/17 08:31 97.1 11/06/17 07:52 92 18 100 Nasal Cannula 2.0 28 11/06/17 07:44 100 Nasal Cannula 2.0 28 11/06/17 07:44 Nasal Cannula 2.0 28 11/06/17 07:44 92 18 98 Nasal Cannula 2.0 28 11/06/17 07:06 97.1 11/06/17 04:00 95 11/06/17 04:00 97.1 94 20 128/73 (91) 97 97.1 11/06/17 03:48 89 18 99 Nasal Cannula 2.0 28 11/06/17 03:37 88 18 98 Nasal Cannula 2.0 28 11/06/17 00:00 97.8 95 26 140/72 (94) 97 97.8 11/06/17 00:00 101 11/05/17 22:49 97 18 98 Nasal Cannula 2.0 28 11/05/17 22:34 94 18 97 Nasal Cannula 2.0 28 11/05/17 21:17 98.0 11/05/17 21:00 Nasal Cannula 2.0 11/05/17 20:00 97.8 93 22 125/54 (77) 97 97.8 11/05/17 20:00 72 11/05/17 19:51 102 18 99 Nasal Cannula 2.0 28 11/05/17 19:50 Nasal Cannula 2.0 28 11/05/17 19:49 97 Nasal Cannula 2.0 28 11/05/17 19:44 98 18 97 Nasal Cannula 2.0 28 11/05/17 16:00 98.0 114 18 107/69 (82) 99 98.0 11/05/17 16:00 110 11/05/17 15:13 99 18 99 Nasal Cannula 2.0 28 11/05/17 15:03 103 18 92 Nasal Cannula 2.0 28 11/05/17 13:18 97.9 11/05/17 12:00 97.0 96 18 108/77 (87) 99 97.0 11/05/17 12:00 99 11/05/17 11:27 98 18 99 Nasal Cannula 2.0 28 11/05/17 11:16 98 18 93 Nasal Cannula 2.0 28 11/05/17 09:57 97.9 11/05/17 09:00 Nasal Cannula 2.0 11/05/17 08:58 97.9 Intake and Output 11/05/17 11/06/17 18:59 06:59 Intake Total 620 ml 600 ml Balance 620 ml 600 ml Intake Oral 620 ml 600 ml # Bowel Movements 1 Height (Feet): 5 Height (Inches): 7.00 Weight (Pounds): 154 General Appearance: WD/WN, alert Neck: supple Cardiovascular: regular rhythm Respiratory/Chest: chest wall non-tender, no respiratory distress, no accessory muscle use, expiratory wheezing Abdomen: normal bowel sounds, non tender, soft, no organomegaly Edema: no edema noted Arm (L), no edema noted Arm (R), no edema noted Leg (L), no edema noted Leg (R), no edema noted Pedal (L), no edema noted Pedal (R), no edema noted Generalized Nish Alvarado MD Nov 06, 2017 08:41
[2017-11-06 12:00] VITALS: BP 127/72
[2017-11-06] MEDS ORDERED: OPSUMIT10 MG PO (14:39)
[2017-11-06] MEDS ORDERED: INCRUSE ELLI62.5 MCG IH (14:41)
[2017-11-06] MEDS ORDERED: LAMOTRIGINE25 M1 PO (14:41)
[2017-11-06 16:00] VITALS: BP 107/67
[2017-11-06] MEDS ORDERED: Nystatin Susp 500,000 units/5ml ORAL SCH (18:00)
--- NOTE | 2017-11-06 18:16 | Pulmonology Progress Note ---
Assessment/Plan Assessment/Plan History of Present Illness 57 year old female patient presents with respiratory distress and COPD exacerbation. She was noted to have a low oxygen saturation and also significant short of breath. Patient has noted worsening in her symptoms over the past several days with increase in chest tightness and cough. she does have oxygen at home and is chronically using. She is currently not doing well and is in distress and requires acute admission. Patient well known to me. Pulmonary functions with very severe disease Stable overnight Active Medications: OPSUMIT 10 MG ORAL TABS (MACITENTAN) Take one tablet daily BANOPHEN 50 MG ORAL CAPS (DIPHENHYDRAMINE HCL) 1 PO Q6 PRN CLONAZEPAM 2 MG TABS (CLONAZEPAM) 1 tab qhs PRN IBUPROFEN 800 MG ORAL TABS (IBUPROFEN) 1 tid prn ZOLOFT 50 MG TABS (SERTRALINE HCL) 1 by mouth nightly at bedtime SYMBICORT 160-4.5 MCG/ACT AERO (BUDESONIDE-FORMOTEROL FUMARATE) 2 puff bid [facility] MELATONIN CAPS (MELATONIN CAPS) Take one tablet daily FLAX SEED OIL CAPS (FLAXSEED (LINSEED) CAPS) Take one tablet daily NASONEX 50 MCG/ACT NASAL SUSP (MOMETASONE FUROATE) 2 puffs qd CVS VITAMIN C TABS (ASCORBIC ACID TABS) Take one tablet daily VITAMIN D3 5000 UNIT ORAL CAPS (CHOLECALCIFEROL) 1 tab qd B-12 500 MCG ORAL TABS (CYANOCOBALAMIN) 1 tab qd CENTRUM SILVER ULTRA WOMENS TABS (MULTIPLE VITAMINS-MINERALS) Take one tablet daily VENTOLIN HFA 108 (90 BASE) MCG/ACT INH AERS (ALBUTEROL SULFATE) 2 puff qid prn ALBUTEROL SULFATE 0.083 % NEBU (ALBUTEROL SULFATE) 1 vial bid BACLOFEN 10 MG TABS (BACLOFEN) Take one tablet three times daily ASPIR-81 81 MG ORAL TBEC (ASPIRIN) 1 qd DALIRESP 500 MCG TABS (ROFLUMILAST) 1 PO DAILY SIMVASTATIN 10 MG TABS (SIMVASTATIN) 1 tab po at bedtime OMEPRAZOLE 40 MG CPDR (OMEPRAZOLE) 1 qd SPIRIVA HANDIHALER 18 MCG CAPS (TIOTROPIUM BROMIDE MONOHYDRATE) 1 qd MEDROL TABS (METHYLPREDNISOLONE TABS) as directed CEFTIN 500 MG ORAL TABS (CEFUROXIME AXETIL) Take one tablet two times daily for 7 days GUAIFENESIN-CODEINE 100-10 MG/5ML ORAL SYRP (GUAIFENESIN-CODEINE) 5cc by mouth Q4 PRN LEXAPRO 10 MG ORAL TABS (ESCITALOPRAM OXALATE) Take one tablet daily PRIMIDONE 50 MG TABS (PRIMIDONE) 1 tab bid Current Allergies (reviewed today): * OXYCONTIN (Critical) * NEURONTIN (Critical) * ADEMPUS (Critical) REVATIO (SILDENAFIL CITRATE TABS) (Critical) * MORPHINE (Critical) Past History Past Medical History peptic ulcer, chronic headaches, arthritis,tremors, depression, Insomnia, COPD, Pulmonary hypertension, mastoiditis COPD exacerbation 2014, chronic hypoxemia, possible CVA Surgical History (reviewed - no changes required): 2009 Neck surgery 2012 cervical corpectomy 2010 Neck surgery/fusion 2001 Hysterectomy 1983 1987 Left ovary removed Bilateral carpal tunnel 02/2013 cervical fusion 2015-breast reduction Family History : Mother-heart disease, Emphysema/COPD, Diabetes Mellitus , Hypertension Father-() paralyzed, Diabetes Mellitus, bladder infection (passed 2016) sister-Diabetes Mellitus younger brother-back problems older brother-Diabetes Mellitus, Hypertension Social History MAYUR is on disability. She lives at home in [place]. She is single with 1 child. Risk Factors: Smoked Tobacco Use: Current every day smoker Cigarettes: Yes -- 3/4 pack(s) per day, Year started: 1973 Years smoked: 3 weeks Smokeless Tobacco Use: Former Year started: 1966 Years used: 3 Year quit: 1970 Years Since Last Quit: 47 Passive smoke exposure: no Drug use: no HIV high-risk behavior: no Caffeine use: 0 drinks per day Alcohol use: no Exercise: yes Times per week: 2 Type of Exercise: PT Seatbelt use: 100 % Sun Exposure: occasionally Review of Systems all 10 points reviewed significant disability trying to eval for lung transplant weak chronic pain Physical Exam General Appearance: sob noted Respiratory Respiratory Effort: intercostal retractions Auscultation: no rales, rhonchi; no wheezes poor air entry Cardiovascular Palpation: no thrill or palpable murmurs, no displacement of PMI Auscultation: S1, S2, no murmur, rub, or gallop; Carotid arteries: pulses 2+, symmetric, no bruits Peripheral Circulation: no cyanosis, clubbing, or varicosities mimmal edema Musculoskeletal Gait and Station: very dyspneic, very weak abdomen negative NABS Labs Test 11/04/17 13:23 White Blood Count 4.1 K/UL (4.8-10.8) Red Blood Count 4.40 M/UL (4.20-5.40) Hemoglobin 13.0 G/DL (12.0-16.0) Hematocrit 42.7 % (37.0-47.0) Mean Corpuscular Volume 97 FL (80-99) Mean Corpuscular Hemoglobin 29.5 PG (27.0-31.0) Mean Corpuscular Hemoglobin Concent 30.5 G/DL (32.0-36.0) Red Cell Distribution Width 12.5 % (11.6-14.8) Platelet Count 239 K/UL (150-450) Mean Platelet Volume 6.9 FL (6.5-10.1) Neutrophils (%) (Auto) 59.0 % (45.0-75.0) Lymphocytes (%) (Auto) 29.4 % (20.0-45.0) Monocytes (%) (Auto) 6.4 % (1.0-10.0) Eosinophils (%) (Auto) 3.3 % (0.0-3.0) Basophils (%) (Auto) 1.9 % (0.0-2.0) Sodium Level 140 MMOL/L (136-145) Potassium Level 5.1 MMOL/L (3.5-5.1) Chloride Level 102 MMOL/L (98-107) Carbon Dioxide Level 31 MMOL/L (21-32) Anion Gap 7 mmol/L (5-15) Blood Urea Nitrogen 10 mg/dL (7-18) Creatinine 0.7 MG/DL (0.55-1.30) Estimat Glomerular Filtration Rate > 60 mL/min (>60) Glucose Level 159 MG/DL (74-106) Calcium Level 8.9 MG/DL (8.5-10.1) Total Bilirubin 0.3 MG/DL (0.2-1.0) Aspartate Amino Transf (AST/SGOT) 32 U/L (15-37) Alanine Aminotransferase (ALT/SGPT) 18 U/L (12-78) Alkaline Phosphatase 91 U/L (46-116) Total Creatine Kinase 78 U/L (26-308) Creatine Kinase MB 1.2 NG/ML (0.0-3.6) Creatine Kinase MB Relative Index 1.5 Troponin I 0.000 ng/mL (0.000-0.056) Pro-B-Type Natriuretic Peptide 14 pg/mL (0-125) Total Protein 7.3 G/DL (6.4-8.2) Albumin 3.2 G/DL (3.4-5.0) Globulin 4.1 g/dL Albumin/Globulin Ratio 0.8 (1.0-2.7) Lipase 174 U/L (73-393) Assessment COPD with exacerbation Anxiety possible respiratory infection Hypoxemia Pulmonary Hypertension Anxiety Significant pain Plan Iv antibiotics IV solumedrol respiratory care oxygen monitor for CO2 retention resume home meds Close follow up for respiratory deterioration and need for intubation DVT Prophyllaxis Subjective ROS Limited/Unobtainable: No Allergies: Coded Allergies: MORPHINE (Verified Allergy, Severe, Itching, 12/09/14) RIOCIGUAT (Verified Allergy, Severe, 11/04/17) SILDENAFIL (Verified Allergy, Severe, 11/04/17) OXYCODONE (Verified Adverse Reaction, Severe, 12/09/14) FEELS BAD/WEAK Objective Last 24 Hour Vital Signs Date Time Temp Pulse Resp B/P (MAP) Pulse Ox O2 Delivery O2 Flow Rate FiO2 11/06/17 17:47 98.6 11/06/17 16:00 98.6 96 18 107/67 (80) 99 98.6 11/06/17 15:15 Nasal Cannula 2.0 28 11/06/17 15:15 88 18 99 Nasal Cannula 2.0 28 11/06/17 14:29 98.6 11/06/17 14:14 97.1 11/06/17 13:30 98.6 11/06/17 13:15 97.1 11/06/17 12:00 98.6 89 22 127/72 (90) 100 98.6 11/06/17 11:52 90 18 100 Nasal Cannula 2.0 28 11/06/17 11:44 90 18 100 Nasal Cannula 2.0 28 11/06/17 09:00 Nasal Cannula 2.0 11/06/17 08:31 97.1 11/06/17 08:00 90 11/06/17 08:00 98.5 98 18 116/67 (83) 100 98.5 11/06/17 07:52 92 18 100 Nasal Cannula 2.0 28 11/06/17 07:44 100 Nasal Cannula 2.0 28 11/06/17 07:44 Nasal Cannula 2.0 28 11/06/17 07:44 92 18 98 Nasal Cannula 2.0 28 11/06/17 04:00 95 11/06/17 04:00 97.1 94 20 128/73 (91) 97 97.1 11/06/17 03:48 89 18 99 Nasal Cannula 2.0 28 11/06/17 03:37 88 18 98 Nasal Cannula 2.0 28 11/06/17 00:00 97.8 95 26 140/72 (94) 97 97.8 11/06/17 00:00 101 11/05/17 22:49 97 18 98 Nasal Cannula 2.0 28 11/05/17 22:34 94 18 97 Nasal Cannula 2.0 28 11/05/17 21:17 98.0 11/05/17 21:00 Nasal Cannula 2.0 11/05/17 20:00 97.8 93 22 125/54 (77) 97 97.8 11/05/17 20:00 72 11/05/17 19:51 102 18 99 Nasal Cannula 2.0 28 11/05/17 19:50 Nasal Cannula 2.0 28 11/05/17 19:49 97 Nasal Cannula 2.0 28 11/05/17 19:44 98 18 97 Nasal Cannula 2.0 28 Intake and Output 11/05/17 11/06/17 19:00 07:00 Intake Total 620 ml 600 ml Balance 620 ml 600 ml Intake Oral 620 ml 600 ml # Bowel Movements 1 Microbiology Date/Time Source Procedure Growth Status 11/04/17 13:57 Blood Blood Culture - Preliminary NO GROWTH AFTER 24 HOURS Resulted 11/04/17 13:52 Blood Blood Culture - Preliminary NO GROWTH AFTER 24 HOURS Resulted Current Medications Medications (Trade) Dose Ordered Sig/Celeste Route PRN Reason Start Time Stop Time Status Last Admin Dose Admin Acetaminophen (Tylenol) 650 mg Q4H PRN ORAL Mild Pain/Temp > 100.5 11/04/17 18:29 12/04/17 18:28 11/06/17 17:47 Al Hydroxide/Mg Hydroxide (Mylanta) 30 ml Q6H PRN ORAL HEARTBURN 11/04/17 18:29 12/04/17 18:28 Albuterol/ Ipratropium (Albuterol/ Ipratropium) 3 ml Q4HRT HHN 11/04/17 19:00 11/09/17 18:59 11/06/17 11:44 Amitriptyline HCl (Elavil) 50 mg BEDTIME ORAL 11/04/17 21:00 12/04/17 20:59 11/05/17 21:17 Ascorbic Acid (Vitamin C) 500 mg DAILY ORAL 11/05/17 09:00 12/05/17 08:59 11/06/17 08:20 Aspirin (ASA) 81 mg BEDTIME ORAL 11/04/17 21:00 12/04/17 20:59 11/05/17 21:16 Atorvastatin Calcium (Lipitor) 10 mg BEDTIME ORAL 11/04/17 21:00 12/04/17 20:59 11/05/17 21:16 Barium Sulfate (Readi-Cat 2) 450 ml NOW PRN ORAL Radiology Procedure 11/05/17 09:15 11/07/17 09:10 Ceftriaxone Sodium 1 gm/ Dextrose 55 ml @ 110 mls/hr Q24H IVPB 11/04/17 20:00 11/11/17 19:59 11/05/17 21:19 Clonazepam (KlonoPIN) 2 mg QHS PRN ORAL For Anxiety 11/05/17 17:30 11/12/17 17:29 Cyanocobalamin (Vitamin B-12) 2,500 mcg DAILY ORAL 11/05/17 09:00 12/05/17 08:59 11/06/17 08:20 Cyclobenzaprine HCl (Flexeril) 10 mg Q8HR ORAL 11/04/17 22:00 12/04/17 21:59 11/06/17 13:15 Gabapentin (Neurontin) 300 mg THREE TIMES A DAY ORAL 11/05/17 09:00 12/05/17 08:59 11/06/17 17:46 Heparin Sodium (Porcine) (Heparin 5000 units/ml) 5,000 units EVERY 12 HOURS SUBQ 11/04/17 21:00 12/04/17 20:59 11/06/17 08:20 Lactobacillus Acidophilus (Culturelle) 1 tab BEDTIME ORAL 11/04/17 21:00 12/04/17 20:59 11/05/17 21:18 Lamotrigine (LaMICtal) 25 mg Q12H ORAL 11/06/17 21:00 12/06/17 20:59 Magnesium Hydroxide (Mom) 30 ml DAILYPRN PRN ORAL Constipation 11/04/17 18:29 12/04/17 18:28 Methylprednisolone Sodium Succinate (Solu-MEDROL) 60 mg EVERY 12 HOURS IVP 11/04/17 21:00 12/04/17 20:59 11/06/17 08:20 Nystatin (Nystatin) 5 ml TID ORAL 11/06/17 18:00 11/13/17 17:59 11/06/17 17:46 Pantoprazole (Protonix) 40 mg DAILY IVP 11/05/17 09:00 12/05/17 08:59 11/06/17 08:20 Patient Own Medication (Patient's Own Med) 1 ea DAILY ORAL 11/07/17 09:00 12/07/17 08:59 Patient Own Medication (Patient's Own Med) 1 ea Q24H INH 11/06/17 21:00 12/06/17 20:59 Primidone (Mysoline) 50 mg EVERY 8 HOURS ORAL 11/04/17 22:00 12/04/17 21:59 11/06/17 13:13 Sertraline HCl (Zoloft) 50 mg BEDTIME ORAL 11/04/17 21:00 12/04/17 20:59 11/05/17 21:18 Sumatriptan Succinate (Imitrex) 100 mg DAILY PRN ORAL MIGRAINE 11/04/17 18:54 12/04/17 18:53 Zolpidem Tartrate (Ambien) 5 mg HSPRN PRN ORAL Insomnia 11/04/17 21:00 11/11/17 20:59 11/04/17 20:56 Martin Muñoz MD Nov 06, 2017 18:16
[2017-11-06] MEDS ORDERED: Milk of Magnesia 30ml Ud ORAL PRN (19:03)
[2017-11-06] MEDS ORDERED: SUMAtriptan 100mg tab ORAL PRN (19:04)
[2017-11-06 20:00] VITALS: BP 130/74
[2017-11-06] MEDS: cefTRIAXone 1 GM in D5W 55 ML IVPB SCH (20:00)
[2017-11-06] MEDS ORDERED: INCRUSE ELLIPTA 62.5 MCG INH SCH (21:00)
[2017-11-06] MEDS ORDERED: Zolpidem 5mg tab ORAL PRN (21:00)
[2017-11-06] MEDS ORDERED: Solu-MEDROL 40mg Inj IVP SCH (21:00)
[2017-11-06] MEDS: Lactobacillus-GG tablet ORAL SCH (21:22)
[2017-11-06] MEDS: Aspirin Baby 81mg ORAL SCH (21:23)
[2017-11-06] MEDS: Sertraline 50mg tab ORAL SCH (21:24)
[2017-11-07] VITALS: BP 134/78
[2017-11-07] MEDS: Albuterol/Ipratropium 3ml neb HHN SCH ×6 (03:07→23:00)
[2017-11-07 04:00] VITALS: BP 124/73
[2017-11-07] MEDS ORDERED: VENTOLIN HFA18 GM INH (05:25)
[2017-11-07] MEDS: Cyclobenzaprine 10mg Tab ORAL SCH ×3 (06:21→21:11)
[2017-11-07 08:00] VITALS: BP 121/71
--- NOTE | 2017-11-07 08:37 | General Progress Note ---
Assessment/Plan Problem List: (1) Chest pain ICD Codes: R07.9 - Chest pain SNOMED: 92140135 (2) COPD (chronic obstructive pulmonary disease) with acute bronchitis ICD Codes: J44.1 - COPD (chronic obstructive pulmonary disease) with acute bronchitis SNOMED: 74962748 (3) Fall ICD Codes: W19.XXXA - Unspecified fall, initial encounter SNOMED: 8052744, 812469550 (4) Musculoskeletal pain ICD Codes: M79.1 - Myalgia SNOMED: 974101949 (5) UTI (urinary tract infection) ICD Codes: N39.0 - Urinary tract infection, site not specified SNOMED: 84684549 (6) COPD (chronic obstructive pulmonary disease) ICD Codes: J44.9 - Chronic obstructive pulmonary disease, unspecified SNOMED: 73668817 Qualifiers: Qualified Codes: J44.9 - Chronic obstructive pulmonary disease, unspecified Assessment/Plan wean iv steroids pain rx abx dvt/stress ulcer prophylaxis anticipate dc tomorrow Subjective ROS Limited/Unobtainable: No Constitutional: Reports: malaise, weakness HEENT: Reports: no symptoms Cardiovascular: Reports: chest pain Respiratory: Reports: cough, shortness of breath, SOB with excertion Gastrointestinal/Abdominal: Reports: no symptoms Genitourinary: Reports: no symptoms Neurologic/Psychiatric: Reports: no symptoms Endocrine: Reports: no symptoms Hematologic/Lymphatic: Reports: no symptoms Allergies: Coded Allergies: MORPHINE (Verified Allergy, Severe, Itching, 12/09/14) RIOCIGUAT (Verified Allergy, Severe, 11/04/17) SILDENAFIL (Verified Allergy, Severe, 11/04/17) OXYCODONE (Verified Adverse Reaction, Severe, 12/09/14) FEELS BAD/WEAK All Systems: reviewed and negative except above Subjective decreased sob. some intermittent wheezing. "hurts" all over. Objective Last 24 Hour Vital Signs Date Time Temp Pulse Resp B/P (MAP) Pulse Ox O2 Delivery O2 Flow Rate FiO2 11/07/17 07:39 90 20 97 Nasal Cannula 2.0 11/07/17 07:29 93 20 90 Room Air 21 11/07/17 07:29 90 Room Air 21 11/07/17 07:29 Nasal Cannula 2.0 11/07/17 04:00 98.3 92 18 124/73 (90) 96 98.3 11/07/17 03:20 85 18 99 Nasal Cannula 2.0 28 11/07/17 03:07 87 18 92 Nasal Cannula 2.0 28 11/07/17 00:00 98.2 105 18 134/78 (96) 98 98.2 11/06/17 23:20 101 18 97 Nasal Cannula 2.0 28 11/06/17 23:09 101 18 93 Nasal Cannula 2.0 28 11/06/17 21:00 Nasal Cannula 2.0 11/06/17 20:00 99.3 107 19 130/74 (92) 98 99.3 11/06/17 19:48 Nasal Cannula 2.0 28 11/06/17 19:48 100 18 99 Nasal Cannula 2.0 28 11/06/17 19:47 95 Nasal Cannula 2.0 28 11/06/17 19:38 99 18 93 Nasal Cannula 2.0 28 11/06/17 18:46 98.6 11/06/17 17:47 98.6 11/06/17 16:00 98.6 96 18 107/67 (80) 99 98.6 11/06/17 15:15 Nasal Cannula 2.0 28 11/06/17 15:15 88 18 99 Nasal Cannula 2.0 28 11/06/17 14:14 97.1 11/06/17 13:30 98.6 11/06/17 13:15 97.1 11/06/17 12:00 98.6 89 22 127/72 (90) 100 98.6 11/06/17 11:52 90 18 100 Nasal Cannula 2.0 11/06/17 11:44 90 18 100 Nasal Cannula 2.0 28 11/06/17 09:00 Nasal Cannula 2.0 Intake and Output 11/06/17 11/07/17 19:00 07:00 Intake Total 600 ml 580 ml Balance 600 ml 580 ml Intake Oral 600 ml 580 ml # Voids 2 4 # Bowel Movements 1 Height (Feet): 5 Height (Inches): 7.00 Weight (Pounds): 154 General Appearance: WD/WN, alert Neck: supple Cardiovascular: normal peripheral pulses, normal rate, regular rhythm Respiratory/Chest: expiratory wheezing Abdomen: normal bowel sounds, non tender, soft, no organomegaly Edema: no edema noted Arm (L), no edema noted Arm (R), no edema noted Leg (L), no edema noted Leg (R), no edema noted Pedal (L), no edema noted Pedal (R), no edema noted Generalized Nish Alvarado MD Nov 07, 2017 08:37
[2017-11-07] MEDS ORDERED: OPSUMIT 10 MG ORAL SCH (09:00)
[2017-11-07] MEDS: Ascorbic Acid 500mg tab ORAL SCH (09:21)
[2017-11-07] MEDS: Nystatin Susp 500,000 units/5ml ORAL SCH ×3 (09:22→17:25)
[2017-11-07] MEDS: Pantoprazole Inj IVP SCH (09:22)
[2017-11-07] MEDS: Solu-MEDROL 40mg Inj IVP SCH (09:23)
[2017-11-07] MEDS: Heparin 5000 units/ml inj SUBQ SCH ×2 (09:27→20:41)
[2017-11-07] MEDS: Vitamin B-12 500mcg tab ORAL SCH (09:41)
[2017-11-07 12:00] VITALS: BP 121/74
--- NOTE | 2017-11-07 12:48 | Pulmonology Progress Note ---
Assessment/Plan Assessment/Plan COPD with exacerbation Anxiety possible respiratory infection Hypoxemia Pulmonary Hypertension Anxiety Significant pain PLAN continue same monitor as is oxygen pain control ? pain management out of bed impression, plan, and exam edited and reviewed in detail care discussed with RN Subjective Allergies: Coded Allergies: MORPHINE (Verified Allergy, Severe, Itching, 12/09/14) RIOCIGUAT (Verified Allergy, Severe, 11/04/17) SILDENAFIL (Verified Allergy, Severe, 11/04/17) OXYCODONE (Verified Adverse Reaction, Severe, 12/09/14) FEELS BAD/WEAK Subjective still with sob notes skin lesions improving noted issues at home Objective Last 24 Hour Vital Signs Date Time Temp Pulse Resp B/P (MAP) Pulse Ox O2 Delivery O2 Flow Rate FiO2 11/07/17 11:50 95 20 99 Nasal Cannula 2.0 28 11/07/17 11:43 90 20 99 Nasal Cannula 2.0 28 11/07/17 09:30 85 20 96 Nasal Cannula 2.0 28 11/07/17 09:30 85 20 96 Nasal Cannula 2.0 11/07/17 09:00 Nasal Cannula 2.0 11/07/17 08:00 98.5 98 19 121/71 (88) 100 98.5 11/07/17 07:39 90 20 97 Nasal Cannula 2.0 28 11/07/17 07:29 93 20 90 Room Air 21 11/07/17 07:29 90 Room Air 21 11/07/17 07:29 Nasal Cannula 2.0 28 11/07/17 04:00 98.3 92 18 124/73 (90) 96 98.3 11/07/17 03:20 85 18 99 Nasal Cannula 2.0 28 11/07/17 03:07 87 18 92 Nasal Cannula 2.0 28 11/07/17 00:00 98.2 105 18 134/78 (96) 98 98.2 11/06/17 23:20 101 18 97 Nasal Cannula 2.0 28 11/06/17 23:09 101 18 93 Nasal Cannula 2.0 28 11/06/17 21:00 Nasal Cannula 2.0 11/06/17 20:00 99.3 107 19 130/74 (92) 98 99.3 11/06/17 19:48 Nasal Cannula 2.0 28 11/06/17 19:48 100 18 99 Nasal Cannula 2.0 28 11/06/17 19:47 95 Nasal Cannula 2.0 28 11/06/17 19:38 99 18 93 Nasal Cannula 2.0 28 11/06/17 18:46 98.6 11/06/17 17:47 98.6 11/06/17 16:00 98.6 96 18 107/67 (80) 99 98.6 11/06/17 15:15 Nasal Cannula 2.0 28 11/06/17 15:15 88 18 99 Nasal Cannula 2.0 28 11/06/17 14:14 97.1 11/06/17 13:30 98.6 11/06/17 13:15 97.1 Intake and Output 11/06/17 11/07/17 19:00 07:00 Intake Total 600 ml 580 ml Balance 600 ml 580 ml Intake Oral 600 ml 580 ml # Voids 2 4 # Bowel Movements 1 Objective WDWN NAD poor sounds bilaterally without rhonchi or wheeze [id number] without MRG NABS nontender no HSM no CCE skin lesions noted nonfocal Microbiology Date/Time Source Procedure Growth Status 11/04/17 13:57 Blood Blood Culture - Preliminary NO GROWTH AFTER 48 HOURS Resulted 11/04/17 13:52 Blood Blood Culture - Preliminary NO GROWTH AFTER 48 HOURS Resulted Current Medications Medications (Trade) Dose Ordered Sig/Celeste Route PRN Reason Start Time Stop Time Status Last Admin Dose Admin Acetaminophen (Tylenol) 650 mg Q4H PRN ORAL Mild Pain/Temp > 100.5 11/06/17 19:01 12/04/17 19:00 11/07/17 09:34 Al Hydroxide/Mg Hydroxide (Mylanta) 30 ml Q6H PRN ORAL HEARTBURN 11/06/17 19:03 12/06/17 19:02 Albuterol/ Ipratropium (Albuterol/ Ipratropium) 3 ml Q4HRT HHN 11/06/17 19:00 11/09/17 18:59 11/07/17 11:43 Amitriptyline HCl (Elavil) 75 mg BEDTIME ORAL 11/07/17 21:00 12/07/17 20:59 Ascorbic Acid (Vitamin C) 500 mg DAILY ORAL 11/07/17 09:00 12/05/17 08:59 11/07/17 09:21 Aspirin (ASA) 81 mg BEDTIME ORAL 11/06/17 21:00 12/04/17 20:59 11/06/17 21:23 Atorvastatin Calcium (Lipitor) 10 mg BEDTIME ORAL 11/06/17 21:00 12/04/17 20:59 11/06/17 21:24 Barium Sulfate (Readi-Cat 2) 450 ml NOW PRN ORAL Radiology Procedure 11/07/17 09:15 11/08/17 09:14 Budesonide/ Formoterol Fumarate (Symbicort 160/ 4.5) 2 puff TWICE A DAY INH 11/07/17 09:00 12/07/17 08:59 11/07/17 09:29 Ceftriaxone Sodium 1 gm/ Dextrose 55 ml @ 110 mls/hr Q24H IVPB 11/06/17 20:00 11/11/17 19:59 11/06/17 20:00 Clonazepam (KlonoPIN) 2 mg QHS PRN ORAL For Anxiety 11/06/17 19:02 11/12/17 19:01 11/06/17 21:28 Cyanocobalamin (Vitamin B-12) 2,500 mcg DAILY ORAL 11/07/17 09:00 12/05/17 08:59 11/07/17 09:41 Cyclobenzaprine HCl (Flexeril) 10 mg Q8HR ORAL 11/06/17 22:00 12/04/17 21:59 11/07/17 06:21 Gabapentin (Neurontin) 300 mg THREE TIMES A DAY ORAL 11/07/17 09:00 12/05/17 08:59 11/07/17 09:21 Heparin Sodium (Porcine) (Heparin 5000 units/ml) 5,000 units EVERY 12 HOURS SUBQ 11/06/17 21:00 12/04/17 20:59 11/07/17 09:27 Lactobacillus Acidophilus (Culturelle) 1 tab BEDTIME ORAL 11/06/17 21:00 12/04/17 20:59 11/06/17 21:22 Lamotrigine (LaMICtal) 25 mg Q12H ORAL 11/06/17 21:00 12/06/17 20:59 11/07/17 09:21 Magnesium Hydroxide (Mom) 30 ml DAILYPRN PRN ORAL Constipation 11/06/17 19:03 12/06/17 19:02 Methylprednisolone Sodium Succinate (Solu-MEDROL) 60 mg DAILY IVP 11/07/17 09:00 12/07/17 08:59 11/07/17 09:23 Nystatin (Nystatin) 5 ml TID ORAL 11/07/17 09:00 11/13/17 17:59 11/07/17 09:22 Pantoprazole (Protonix) 40 mg DAILY IVP 11/07/17 09:00 12/05/17 08:59 11/07/17 09:22 Patient Own Medication (Patient's Own Med) 1 ea Q24H INH 11/07/17 21:00 12/07/17 20:59 Patient Own Medication (Patient's Own Med) 1 ea Q24H ORAL 11/07/17 21:00 12/07/17 20:59 Primidone (Mysoline) 50 mg EVERY 8 HOURS ORAL 11/06/17 22:00 12/04/17 21:59 11/07/17 06:21 Sertraline HCl (Zoloft) 50 mg BEDTIME ORAL 11/06/17 21:00 12/04/17 20:59 11/06/17 21:24 Sumatriptan Succinate (Imitrex) 100 mg DAILYPRN PRN ORAL MIGRAINE 11/06/17 19:04 12/06/17 19:03 Zolpidem Tartrate (Ambien) 5 mg HSPRN PRN ORAL Insomnia 11/06/17 21:00 11/11/17 20:59 Bala Martin MD Nov 07, 2017 12:48
[2017-11-07 16:00] VITALS: BP 133/73
[2017-11-07] MEDS ORDERED: LORazepam Inj 2mg/ml 1ml IV SCH (17:05)
[2017-11-07 20:00] VITALS: BP 132/80
[2017-11-07] MEDS: cefTRIAXone 1 GM in D5W 55 ML IVPB SCH (20:38)
[2017-11-07] MEDS: Lactobacillus-GG tablet ORAL SCH (20:39)
[2017-11-07] MEDS: Aspirin Baby 81mg ORAL SCH (20:39)
[2017-11-07] MEDS: Sertraline 50mg tab ORAL SCH (20:39)
[2017-11-07] MEDS: OPSUMIT 10 MG ORAL SCH (20:40)
[2017-11-08] VITALS: BP 132/72
[2017-11-08] MEDS: Albuterol/Ipratropium 3ml neb HHN SCH ×6 (03:33→23:23)
[2017-11-08] MEDS: Cyclobenzaprine 10mg Tab ORAL SCH ×3 (06:02→21:07)
--- NOTE | 2017-11-08 08:12 | Pulmonology Progress Note ---
Assessment/Plan Assessment/Plan COPD with exacerbation Anxiety possible respiratory infection Hypoxemia Pulmonary Hypertension Anxiety Significant pain PLAN continue same monitor as is oxygen pain control dc planning for now impression, plan, and exam edited and reviewed in detail care discussed with RN Subjective Allergies: Coded Allergies: MORPHINE (Verified Allergy, Severe, Itching, 12/09/14) RIOCIGUAT (Verified Allergy, Severe, 11/04/17) SILDENAFIL (Verified Allergy, Severe, 11/04/17) OXYCODONE (Verified Adverse Reaction, Severe, 12/09/14) FEELS BAD/WEAK Subjective improved sob notes skin lesions noted issues at home Objective Last 24 Hour Vital Signs Date Time Temp Pulse Resp B/P (MAP) Pulse Ox O2 Delivery O2 Flow Rate FiO2 11/08/17 03:20 82 20 99 Nasal Cannula 2.0 28 11/08/17 03:10 85 20 96 Nasal Cannula 2.0 28 11/08/17 00:00 97.3 97 19 132/72 (92) 99 97.3 11/07/17 23:29 Nasal Cannula 2.0 28 11/07/17 23:28 Nasal Cannula 2.0 28 11/07/17 21:00 Nasal Cannula 2.0 11/07/17 20:17 100 20 91 Room Air 21 11/07/17 20:14 100 20 91 Room Air 21 11/07/17 20:00 99.8 101 17 132/80 (97) 95 99.8 11/07/17 19:00 Nasal Cannula 2.0 28 11/07/17 19:00 Nasal Cannula 2.0 28 11/07/17 19:00 100 20 91 Room Air 21 11/07/17 19:00 92 Room Air 21 11/07/17 16:00 98.4 108 18 133/73 (93) 98 98.4 11/07/17 14:56 106 20 96 Nasal Cannula 2.0 11/07/17 14:46 107 22 96 Nasal Cannula 2.0 11/07/17 12:00 98.6 97 19 121/74 (90) 100 98.6 11/07/17 11:50 95 20 99 Nasal Cannula 2.0 28 11/07/17 11:43 90 20 99 Nasal Cannula 2.0 28 11/07/17 09:30 85 20 96 Nasal Cannula 2.0 11/07/17 09:30 85 20 96 Nasal Cannula 2.0 11/07/17 09:00 Nasal Cannula 2.0 Intake and Output 11/07/17 11/08/17 19:00 07:00 Intake Total 200 ml 1200 ml Output Total 2 ml 0 ml Balance 198 ml 1200 ml Intake Oral 200 ml 1200 ml Output Urine Total 2 ml Stool Total 0 ml 0 ml # Voids 13 Objective WDWN NAD poor sounds bilaterally without rhonchi or wheeze [id number] without MRG NABS nontender no HSM no CCE skin lesions noted nonfocal minimal changes Current Medications Medications (Trade) Dose Ordered Sig/Celeste Route PRN Reason Start Time Stop Time Status Last Admin Dose Admin Acetaminophen (Tylenol) 650 mg Q4H PRN ORAL Mild Pain/Temp > 100.5 11/06/17 19:01 12/04/17 19:00 11/07/17 13:49 Al Hydroxide/Mg Hydroxide (Mylanta) 30 ml Q6H PRN ORAL HEARTBURN 11/06/17 19:03 12/06/17 19:02 Albuterol/ Ipratropium (Albuterol/ Ipratropium) 3 ml Q4HRT HHN 11/06/17 19:00 11/09/17 18:59 11/08/17 03:33 Amitriptyline HCl (Elavil) 75 mg BEDTIME ORAL 11/07/17 21:00 12/07/17 20:59 11/07/17 20:39 Ascorbic Acid (Vitamin C) 500 mg DAILY ORAL 11/07/17 09:00 12/05/17 08:59 11/07/17 09:21 Aspirin (ASA) 81 mg BEDTIME ORAL 11/06/17 21:00 12/04/17 20:59 11/07/17 20:39 Atorvastatin Calcium (Lipitor) 10 mg BEDTIME ORAL 11/06/17 21:00 12/04/17 20:59 11/07/17 20:39 Barium Sulfate (Readi-Cat 2) 450 ml NOW PRN ORAL Radiology Procedure 11/07/17 09:15 11/08/17 09:14 Budesonide/ Formoterol Fumarate (Symbicort 160/ 4.5) 2 puff TWICE A DAY INH 11/07/17 09:00 12/07/17 08:59 11/07/17 20:01 Ceftriaxone Sodium 1 gm/ Dextrose 55 ml @ 110 mls/hr Q24H IVPB 11/06/17 20:00 11/11/17 19:59 11/07/17 20:38 Clonazepam (KlonoPIN) 2 mg QHS PRN ORAL For Anxiety 11/06/17 19:02 11/12/17 19:01 11/07/17 21:14 Cyanocobalamin (Vitamin B-12) 2,500 mcg DAILY ORAL 11/07/17 09:00 12/05/17 08:59 11/07/17 09:41 Cyclobenzaprine HCl (Flexeril) 10 mg Q8HR ORAL 11/06/17 22:00 12/04/17 21:59 11/08/17 06:02 Gabapentin (Neurontin) 300 mg THREE TIMES A DAY ORAL 11/07/17 09:00 12/05/17 08:59 11/07/17 17:25 Heparin Sodium (Porcine) (Heparin 5000 units/ml) 5,000 units EVERY 12 HOURS SUBQ 11/06/17 21:00 12/04/17 20:59 11/07/17 20:41 Lactobacillus Acidophilus (Culturelle) 1 tab BEDTIME ORAL 11/06/17 21:00 12/04/17 20:59 11/07/17 20:39 Lamotrigine (LaMICtal) 25 mg Q12H ORAL 11/06/17 21:00 12/06/17 20:59 11/07/17 20:39 Magnesium Hydroxide (Mom) 30 ml DAILYPRN PRN ORAL Constipation 11/06/17 19:03 12/06/17 19:02 Methylprednisolone Sodium Succinate (Solu-MEDROL) 60 mg DAILY IVP 11/07/17 09:00 12/07/17 08:59 11/07/17 09:23 Nystatin (Nystatin) 5 ml TID ORAL 11/07/17 09:00 11/13/17 17:59 11/07/17 17:25 Pantoprazole (Protonix) 40 mg DAILY IVP 11/07/17 09:00 12/05/17 08:59 11/07/17 09:22 Patient Own Medication (Patient's Own Med) 1 ea Q24H INH 11/07/17 21:00 12/07/17 20:59 11/07/17 21:00 Patient Own Medication (Patient's Own Med) 1 ea Q24H ORAL 11/07/17 21:00 12/07/17 20:59 11/07/17 20:40 Primidone (Mysoline) 50 mg EVERY 8 HOURS ORAL 11/06/17 22:00 12/04/17 21:59 11/08/17 06:02 Sertraline HCl (Zoloft) 50 mg BEDTIME ORAL 11/06/17 21:00 12/04/17 20:59 11/07/17 20:39 Sumatriptan Succinate (Imitrex) 100 mg DAILYPRN PRN ORAL MIGRAINE 11/06/17 19:04 12/06/17 19:03 Zolpidem Tartrate (Ambien) 5 mg HSPRN PRN ORAL Insomnia 11/06/17 21:00 11/11/17 20:59 Bala Martin MD Nov 08, 2017 08:12
[2017-11-08 08:40] VITALS: BP 123/77
--- NOTE | 2017-11-08 08:50 | General Progress Note ---
Assessment/Plan Problem List: (1) Chest pain ICD Codes: R07.9 - Chest pain SNOMED: 65093113 (2) COPD (chronic obstructive pulmonary disease) with acute bronchitis ICD Codes: J44.1 - COPD (chronic obstructive pulmonary disease) with acute bronchitis SNOMED: 16595047 (3) Fall ICD Codes: W19.XXXA - Unspecified fall, initial encounter SNOMED: 7210000, 626839690 (4) Musculoskeletal pain ICD Codes: M79.1 - Myalgia SNOMED: 813869649 (5) UTI (urinary tract infection) ICD Codes: N39.0 - Urinary tract infection, site not specified SNOMED: 21956780 (6) COPD (chronic obstructive pulmonary disease) ICD Codes: J44.9 - Chronic obstructive pulmonary disease, unspecified SNOMED: 48520811 Qualifiers: Qualified Codes: J44.9 - Chronic obstructive pulmonary disease, unspecified Status: stable Assessment/Plan wean iv steroids to daily pain rx abx dvt/stress ulcer prophylaxis possible dc today or tomorrow depending on clinical course today Subjective ROS Limited/Unobtainable: No Constitutional: Reports: malaise, weakness HEENT: Reports: no symptoms Cardiovascular: Reports: no symptoms Respiratory: Reports: cough, SOB with excertion Gastrointestinal/Abdominal: Reports: no symptoms Genitourinary: Reports: no symptoms Neurologic/Psychiatric: Reports: no symptoms Endocrine: Reports: no symptoms Hematologic/Lymphatic: Reports: no symptoms Allergies: Coded Allergies: MORPHINE (Verified Allergy, Severe, Itching, 12/09/14) RIOCIGUAT (Verified Allergy, Severe, 11/04/17) SILDENAFIL (Verified Allergy, Severe, 11/04/17) OXYCODONE (Verified Adverse Reaction, Severe, 12/09/14) FEELS BAD/WEAK All Systems: reviewed and negative except above Subjective decreased sob. some intermittent wheezing. on iv steroids and resp rx atc. pulm noted Objective Last 24 Hour Vital Signs Date Time Temp Pulse Resp B/P (MAP) Pulse Ox O2 Delivery O2 Flow Rate FiO2 11/08/17 08:40 99.0 87 20 123/77 (92) 99 99.0 11/08/17 08:30 98 22 98 Nasal Cannula 2.0 28 11/08/17 08:27 99 20 98 Nasal Cannula 2.0 28 11/08/17 08:25 107 20 98 Room Air 21 21/18 08:23 105 22 85 Room Air 11/08/17 08:23 85 Room Air 11/08/17 08:18 Nasal Cannula 2.0 28 11/08/17 03:20 82 20 99 Nasal Cannula 2.0 11/08/17 03:10 85 20 96 Nasal Cannula 2.0 11/08/17 00:00 97.3 97 19 132/72 (92) 99 97.3 11/07/17 23:29 Nasal Cannula 2.0 11/07/17 23:28 Nasal Cannula 2.0 28 11/07/17 21:00 Nasal Cannula 2.0 11/07/17 20:17 100 20 91 Room Air 11/07/17 20:14 100 20 91 Room Air 11/07/17 20:00 99.8 101 17 132/80 (97) 95 99.8 11/07/17 19:00 Nasal Cannula 2.0 11/07/17 19:00 Nasal Cannula 2.0 11/07/17 19:00 100 20 91 Room Air 11/07/17 19:00 92 Room Air 11/07/17 16:00 98.4 108 18 133/73 (93) 98 98.4 11/07/17 14:56 106 20 96 Nasal Cannula 2.0 11/07/17 14:46 107 22 96 Nasal Cannula 2.0 11/07/17 12:00 98.6 97 19 121/74 (90) 100 98.6 11/07/17 11:50 95 20 99 Nasal Cannula 2.0 11/07/17 11:43 90 20 99 Nasal Cannula 2.0 11/07/17 09:30 85 20 96 Nasal Cannula 2.0 11/07/17 09:30 85 20 96 Nasal Cannula 2.0 11/07/17 09:00 Nasal Cannula 2.0 Intake and Output 11/07/17 11/08/17 19:00 07:00 Intake Total 200 ml 1200 ml Output Total 2 ml 0 ml Balance 198 ml 1200 ml Intake Oral 200 ml 1200 ml Output Urine Total 2 ml Stool Total 0 ml 0 ml # Voids 13 Height (Feet): 5 Height (Inches): 7.00 Weight (Pounds): 154 Objective General Appearance: WD/WN, alert Neck: supple Cardiovascular: normal peripheral pulses, normal rate, regular rhythm Respiratory/Chest: expiratory wheezing Abdomen: normal bowel sounds, non tender, soft, no organomegaly Edema: no edema noted Arm (L), no edema noted Arm (R), no edema noted Leg (L), no edema noted Leg (R), no edema noted Pedal (L), no edema noted Pedal (R), no edema noted Generalized Nish Alvarado MD Nov 08, 2017 08:50
[2017-11-08] MEDS: Ascorbic Acid 500mg tab ORAL SCH (08:54)
[2017-11-08] MEDS: Solu-MEDROL 40mg Inj IVP SCH (08:54)
[2017-11-08] MEDS: Pantoprazole Inj IVP SCH (08:54)
[2017-11-08] MEDS: Nystatin Susp 500,000 units/5ml ORAL SCH ×3 (08:54→18:53)
[2017-11-08] MEDS: Heparin 5000 units/ml inj SUBQ SCH ×2 (08:56→20:18)
[2017-11-08] MEDS: Vitamin B-12 500mcg tab ORAL SCH (09:56)
[2017-11-08 12:18] VITALS: BP 129/68
[2017-11-08] MEDS ORDERED: LORazepam 1mg tab ORAL PRN (15:45)
[2017-11-08 16:00] VITALS: BP 125/75
[2017-11-08 18:59] VITALS: BP 125/75
[2017-11-08 20:00] VITALS: BP 119/69
[2017-11-08] MEDS: cefTRIAXone 1 GM in D5W 55 ML IVPB SCH (20:10)
[2017-11-08] MEDS: Sertraline 50mg tab ORAL SCH (20:17)
[2017-11-08] MEDS: Aspirin Baby 81mg ORAL SCH (20:17)
[2017-11-08] MEDS: Lactobacillus-GG tablet ORAL SCH (20:17)
[2017-11-08] MEDS: OPSUMIT 10 MG ORAL SCH (20:18)
[2017-11-09] VITALS: BP 128/75
[2017-11-09] MEDS: Albuterol/Ipratropium 3ml neb HHN SCH ×3 (03:00→10:57)
[2017-11-09 04:00] VITALS: BP 113/65
[2017-11-09] MEDS: Cyclobenzaprine 10mg Tab ORAL SCH ×2 (05:29→13:37)
--- NOTE | 2017-11-09 07:50 | General Progress Note ---
Assessment/Plan Problem List: (1) Chest pain ICD Codes: R07.9 - Chest pain SNOMED: 56125500 (2) COPD (chronic obstructive pulmonary disease) with acute bronchitis ICD Codes: J44.1 - COPD (chronic obstructive pulmonary disease) with acute bronchitis SNOMED: 29153075 (3) Fall ICD Codes: W19.XXXA - Unspecified fall, initial encounter SNOMED: 6824004, 528255056 (4) Musculoskeletal pain ICD Codes: M79.1 - Myalgia SNOMED: 060616966 (5) UTI (urinary tract infection) ICD Codes: N39.0 - Urinary tract infection, site not specified SNOMED: 96113243 (6) COPD (chronic obstructive pulmonary disease) ICD Codes: J44.9 - Chronic obstructive pulmonary disease, unspecified SNOMED: 40065947 Qualifiers: Qualified Codes: J44.9 - Chronic obstructive pulmonary disease, unspecified Status: stable, progressing Assessment/Plan cont iv steroids while in house oral taper oin dc pain rx abx dvt/stress ulcer prophylaxis dc planning. 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 Subjective ROS Limited/Unobtainable: No Constitutional: Reports: malaise, weakness HEENT: Reports: no symptoms Cardiovascular: Reports: no symptoms Respiratory: Reports: cough, SOB with excertion Gastrointestinal/Abdominal: Reports: no symptoms Genitourinary: Reports: no symptoms Neurologic/Psychiatric: Reports: no symptoms Endocrine: Reports: no symptoms Hematologic/Lymphatic: Reports: no symptoms Allergies: Coded Allergies: MORPHINE (Verified Allergy, Severe, Itching, 12/09/14) RIOCIGUAT (Verified Allergy, Severe, 11/04/17) SILDENAFIL (Verified Allergy, Severe, 11/04/17) OXYCODONE (Verified Adverse Reaction, Severe, 12/09/14) FEELS BAD/WEAK All Systems: reviewed and negative except above Subjective decreased sob. some intermittent wheezing. on iv steroids and resp rx atc. "sore" all over. hesitant about leaving/discharge Objective Last 24 Hour Vital Signs Date Time Temp Pulse Resp B/P (MAP) Pulse Ox O2 Delivery O2 Flow Rate FiO2 11/09/17 04:00 97.5 91 18 113/65 (81) 94 97.5 11/09/17 03:22 Nasal Cannula 2.0 28 8/22/18 03:21 Nasal Cannula 2.0 28 11/09/17 00:00 97.9 99 18 128/75 (92) 99 97.9 11/08/17 23:24 92 20 99 Nasal Cannula 2.0 28 11/08/17 23:23 90 20 93 Nasal Cannula 2.0 28 11/08/17 21:12 97 20 98 Nasal Cannula 2.0 28 11/08/17 21:11 95 20 96 Nasal Cannula 2.0 28 11/08/17 21:00 Nasal Cannula 2.0 11/08/17 20:00 95 20 96 Nasal Cannula 2.0 28 11/08/17 20:00 99.3 102 18 119/69 (86) 99 99.3 11/08/17 20:00 92 Nasal Cannula 2.0 28 11/08/17 20:00 92 20 94 Nasal Cannula 2.0 28 11/08/17 20:00 Nasal Cannula 2.0 28 11/08/17 19:30 95 20 Nasal Cannula 2.0 28 11/08/17 18:59 98.9 95 18 125/75 (92) 98 98.9 11/08/17 17:44 99.1 11/08/17 16:45 99.1 11/08/17 16:00 98.9 95 18 125/75 (92) 98 98.9 11/08/17 15:44 97 18 97 Room Air 11/08/17 15:39 96 20 94 Room Air 11/08/17 14:44 99.1 11/08/17 13:45 99.1 11/08/17 12:18 99.1 110 20 129/68 (88) 93 99.1 11/08/17 11:05 104 18 98 Room Air 11/08/17 11:00 98 18 98 Room Air 11/08/17 09:26 Nasal Cannula 2.0 11/08/17 08:40 99.0 87 20 123/77 (92) 99 99.0 11/08/17 08:30 98 22 98 Nasal Cannula 2.0 28 11/08/17 08:25 107 20 98 Room Air 11/08/17 08:24 99 20 99 Room Air 11/08/17 08:23 105 22 85 Room Air 11/08/17 08:23 85 Room Air 11/08/17 08:18 Nasal Cannula 2.0 28 Intake and Output 8/21/18 8/22/18 19:00 07:00 Intake Total 920 ml 300 ml Balance 920 ml 300 ml Intake Oral 920 ml 300 ml # Voids 5 4 # Bowel Movements 1 Height (Feet): 5 Height (Inches): 7.00 Weight (Pounds): 156 Objective General Appearance: WD/WN, alert Neck: supple Cardiovascular: normal peripheral pulses, normal rate, regular rhythm Respiratory/Chest: expiratory wheezing Abdomen: normal bowel sounds, non tender, soft, no organomegaly Edema: no edema noted Arm (L), no edema noted Arm (R), no edema noted Leg (L), no edema noted Leg (R), no edema noted Pedal (L), no edema noted Pedal (R), no edema noted Generalized Nish Alvarado MD Nov 09, 2017 07:50
[2017-11-09 08:00] VITALS: BP 117/73
[2017-11-09] MEDS: Nystatin Susp 500,000 units/5ml ORAL SCH ×2 (08:29→13:37)
[2017-11-09] MEDS: Vitamin B-12 500mcg tab ORAL SCH (08:30)
[2017-11-09] MEDS: Ascorbic Acid 500mg tab ORAL SCH (08:30)
[2017-11-09] MEDS: Pantoprazole Inj IVP SCH (08:30)
[2017-11-09] MEDS: Solu-MEDROL 40mg Inj IVP SCH (08:30)
[2017-11-09] MEDS: Heparin 5000 units/ml inj SUBQ SCH (08:37)
--- NOTE | 2017-11-09 10:22 | Pulmonology Progress Note ---
Assessment/Plan Assessment/Plan COPD with exacerbation Anxiety possible respiratory infection Hypoxemia Pulmonary Hypertension Anxiety Significant pain PLAN dc home medrol benjamin resume home meds home health chronic oxygen therapy impression, plan, and exam edited and reviewed in detail care discussed with RN Subjective Allergies: Coded Allergies: MORPHINE (Verified Allergy, Severe, Itching, 12/09/14) RIOCIGUAT (Verified Allergy, Severe, 11/04/17) SILDENAFIL (Verified Allergy, Severe, 11/04/17) OXYCODONE (Verified Adverse Reaction, Severe, 12/09/14) FEELS BAD/WEAK Subjective improved sob and ready stable noted issues at home Objective Last 24 Hour Vital Signs Date Time Temp Pulse Resp B/P (MAP) Pulse Ox O2 Delivery O2 Flow Rate FiO2 11/09/17 09:41 88 20 95 Nasal Cannula 2.0 28 11/09/17 09:36 88 20 95 Nasal Cannula 2.0 11/09/17 09:36 Nasal Cannula 2.0 28 11/09/17 09:36 95 Nasal Cannula 2.0 28 11/09/17 09:34 97.5 11/09/17 09:00 Nasal Cannula 2.0 11/09/17 08:35 97.5 11/09/17 08:32 87 20 93 Room Air 21 11/09/17 08:00 98.6 72 20 117/73 (88) 94 98.6 11/09/17 04:00 97.5 91 18 113/65 (81) 94 97.5 11/09/17 03:22 Nasal Cannula 2.0 11/09/17 03:21 Nasal Cannula 2.0 11/09/17 00:00 97.9 99 18 128/75 (92) 99 97.9 11/08/17 23:24 92 20 99 Nasal Cannula 2.0 28 11/08/17 23:23 90 20 93 Nasal Cannula 2.0 28 11/08/17 21:12 97 20 98 Nasal Cannula 2.0 28 11/08/17 21:11 95 20 96 Nasal Cannula 2.0 11/08/17 21:00 Nasal Cannula 2.0 11/08/17 20:00 95 20 96 Nasal Cannula 2.0 28 11/08/17 20:00 99.3 102 18 119/69 (86) 99 99.3 11/08/17 20:00 92 Nasal Cannula 2.0 28 11/08/17 20:00 92 20 94 Nasal Cannula 2.0 28 11/08/17 20:00 Nasal Cannula 2.0 28 11/08/17 19:30 95 20 Nasal Cannula 2.0 28 11/08/17 18:59 98.9 95 18 125/75 (92) 98 98.9 11/08/17 16:45 99.1 11/08/17 16:00 98.9 95 18 125/75 (92) 98 98.9 11/08/17 15:44 97 18 97 Room Air 21 11/08/17 15:39 96 20 94 Room Air 21 11/08/17 14:44 99.1 11/08/17 13:45 99.1 11/08/17 12:18 99.1 110 20 129/68 (88) 93 99.1 11/08/17 11:05 104 18 98 Room Air 21 11/08/17 11:00 98 18 98 Room Air 21 Intake and Output 11/08/17 11/09/17 19:00 07:00 Intake Total 920 ml 300 ml Balance 920 ml 300 ml Intake Oral 920 ml 300 ml # Voids 5 4 # Bowel Movements 1 Objective WDWN NAD poor sounds bilaterally without rhonchi or wheeze [id number] without MRG NABS nontender no HSM no CCE skin lesions noted nonfocal minimal changes Current Medications Medications (Trade) Dose Ordered Sig/Celeste Route PRN Reason Start Time Stop Time Status Last Admin Dose Admin Acetaminophen (Tylenol) 650 mg Q4H PRN ORAL Mild Pain/Temp > 100.5 11/06/17 19:01 12/04/17 19:00 11/09/17 08:35 Al Hydroxide/Mg Hydroxide (Mylanta) 30 ml Q6H PRN ORAL HEARTBURN 11/06/17 19:03 12/06/17 19:02 Albuterol/ Ipratropium (Albuterol/ Ipratropium) 3 ml Q4HRT HHN 11/06/17 19:00 11/09/17 18:59 11/09/17 08:31 Amitriptyline HCl (Elavil) 75 mg BEDTIME ORAL 11/07/17 21:00 12/07/17 20:59 11/08/17 20:17 Ascorbic Acid (Vitamin C) 500 mg DAILY ORAL 11/07/17 09:00 9/17/18 08:59 11/09/17 08:30 Aspirin (ASA) 81 mg BEDTIME ORAL 11/06/17 21:00 12/04/17 20:59 11/08/17 20:17 Atorvastatin Calcium (Lipitor) 10 mg BEDTIME ORAL 11/06/17 21:00 12/04/17 20:59 11/08/17 20:17 Budesonide/ Formoterol Fumarate (Symbicort 160/ 4.5) 2 puff TWICE A DAY INH 11/07/17 09:00 12/07/17 08:59 11/09/17 09:35 Ceftriaxone Sodium 1 gm/ Dextrose 55 ml @ 110 mls/hr Q24H IVPB 11/06/17 20:00 11/11/17 19:59 11/08/17 20:10 Clonazepam (KlonoPIN) 2 mg QHS PRN ORAL For Anxiety 11/06/17 19:02 11/12/17 19:01 11/08/17 20:26 Cyanocobalamin (Vitamin B-12) 2,500 mcg DAILY ORAL 11/07/17 09:00 12/05/17 08:59 11/09/17 08:30 Cyclobenzaprine HCl (Flexeril) 10 mg Q8HR ORAL 11/06/17 22:00 12/04/17 21:59 11/09/17 05:29 Gabapentin (Neurontin) 300 mg THREE TIMES A DAY ORAL 11/07/17 09:00 12/05/17 08:59 11/09/17 08:30 Heparin Sodium (Porcine) (Heparin 5000 units/ml) 5,000 units EVERY 12 HOURS SUBQ 11/06/17 21:00 12/04/17 20:59 11/09/17 08:37 Lactobacillus Acidophilus (Culturelle) 1 tab BEDTIME ORAL 11/06/17 21:00 12/04/17 20:59 11/08/17 20:17 Lamotrigine (LaMICtal) 25 mg Q12H ORAL 11/06/17 21:00 12/06/17 20:59 11/09/17 08:31 Lorazepam (Ativan) 1 mg Q3H PRN ORAL For Anxiety 11/08/17 15:45 11/15/17 15:44 11/08/17 16:43 Magnesium Hydroxide (Mom) 30 ml DAILYPRN PRN ORAL Constipation 11/06/17 19:03 12/06/17 19:02 Methylprednisolone Sodium Succinate (Solu-MEDROL) 60 mg DAILY IVP 11/07/17 09:00 12/07/17 08:59 11/09/17 08:30 Nystatin (Nystatin) 5 ml TID ORAL 11/07/17 09:00 11/13/17 17:59 11/09/17 08:29 Pantoprazole (Protonix) 40 mg DAILY IVP 11/07/17 09:00 12/05/17 08:59 11/09/17 08:30 Patient Own Medication (Patient's Own Med) 1 ea Q24H INH 11/07/17 21:00 12/07/17 20:59 11/08/17 21:06 Patient Own Medication (Patient's Own Med) 1 ea Q24H ORAL 11/07/17 21:00 12/07/17 20:59 11/08/17 20:18 Primidone (Mysoline) 50 mg EVERY 8 HOURS ORAL 11/06/17 22:00 12/04/17 21:59 11/09/17 05:35 Sertraline HCl (Zoloft) 50 mg BEDTIME ORAL 11/06/17 21:00 12/04/17 20:59 11/08/17 20:17 Sumatriptan Succinate (Imitrex) 100 mg DAILYPRN PRN ORAL MIGRAINE 11/06/17 19:04 12/06/17 19:03 Zolpidem Tartrate (Ambien) 5 mg HSPRN PRN ORAL Insomnia 11/06/17 21:00 11/11/17 20:59 Bala Martin MD Nov 09, 2017 10:22
[2017-11-09 11:25] VITALS: BP 118/58
--- NOTE | 2017-11-10 14:13 | Discharge Summary ---
Discharge Summary Discharge Summary _ DATE OF ADMISSION: 11/04/2017 DATE OF DISCHARGE: Was 05/10/2017 CONSULTANTS: Dr. Nish Alvarado BRIEF HOSPITAL COURSE: Patient is a 57-year-old female, with history of chronic back pain, hypertension and COPD. She presented from home after she apparently fell. She was outside the home trying to clean spiderwebs from her windows and fell while she was getting down. She fell down and slipped on bricks and sustained abrasions. She developed worsening shortness of breath and presented to emergency room. On evaluation at ED, she was tachycardic pulse rate was 114, O2 saturation was 88. There was no leukocytosis noted, hemoglobin and hematocrit was stable. She was given nebulizer treatment. She had an chest x-ray that showed hyperinflated lungs with no infiltrates. EKG was in sinus tachycardia with no ischemic changes. Head CT was negative. She was started on intravenous steroids and was admitted for COPD exacerbation. She was given [id number] respiratory treatments. She was placed on supplemental oxygen. She was started empirically on IV antibiotics. She complained of flank pain. CT of the abdomen showed a nonobstructive right nephrolithiasis with a 9 mm stone and a separate 6 mm stone in the right lower renal pole. There was no hydronephrosis or hydroureter. There was presence of descending and sigmoid colonic diverticulosis without evidence of acute inflammation. She was eventually weaned off IV steroids. She was breathing better ans saturating well on O2. She was eventually cleared for discharge home to continue Medrol Dosepak. FINAL DIAGNOSES: Acute COPD exacerbation with acute bronchitis Anxiety Possible respiratory infection Hypoxemia Pulmonary hypertension Musculoskeletal pain status post fall, prior to admission DISPOSITION: Patient was discharged home. DISCHARGE MEDICATIONS: Refer to Discharge Medication List. I have been assigned to dictate discharge summary on this account, and I was not involved in the patient's management. Martine Ayala NP Nov 10, 2017 14:13
--- NOTE | 2017-11-11 01:00 | Cardiology Report ---
APPROVED REPORT EKG Measurement Heart [id number] Sinus tachycardia Possible Left atrial enlargement Borderline ECG
== END 2017-11-09 14:00 | disposition home or self-care (01) | DRG 191 ==
LOC: EMR 13:20 → 2E 14:02 → EDBEDREQ 15:47 → 2E 17:16 → 3E 11-06 18:50
DX: J44.0 Chronic obstructive pulmonary disease with (acute) lower respiratory infection (principal); N39.0 Urinary tract infection, site not specified; J44.1 Chronic obstructive pulmonary disease with (acute) exacerbation; T14.8XXA Other injury of unspecified body region, initial encounter; I10 Essential (primary) hypertension; G89.29 Other chronic pain; J20.9 Acute bronchitis, unspecified; F41.9 Anxiety disorder, unspecified; R09.02 Hypoxemia; I27.20 Pulmonary hypertension, unspecified; W19.XXXA Unspecified fall, initial encounter; Y92.096 Garden or yard of other non-institutional residence as the place of occurrence of the external cause
CPT/HCPCS: 36415; 70450; 71045; 74176; 80053; 82550; 82553; 83690; 83880; 84484; 85025; 87040; 93005; 94640; 94664; 94760; J7620

== ENCOUNTER 2017-12-25 14:22 | Inpatient (IN) | payer MEDICARE, OTHER ==
[~2017-12-25] VITALS: Ht 170.2 cm; Wt 77.1 kg
[2017-12-25 14:22] VITALS: BP 109/63
[~2017-12-25 14:22] MED LIST changes: +INCRUSE ELLI62.5 MCG IH; +LAMOTRIGINE25 M1 PO
[2017-12-25] MEDS ORDERED: Nitroglycerin 2% oint pkt TOPIC ONE (14:30)
--- NOTE | 2017-12-25 14:30 | Emergency Room Report ---
History of Present Illness General Chief Complaint: Chest Pain Source: Patient Present Illness HPI Patient presents with substernal chest pain and pressure that began while she was crocheting at home. She took [place] and also used her albuterol inhaler. It persisted and she called 911. Paramedics were summoned and they performed an EKG which did not show a STEMI. They gave her aspirin 325 and sprays of nitroglycerin. The pain started at 8/10 and with her treatment it now is down to 4/10. It's not radiating. Last night she says she coughed up a little bit of blood. She denies any fevers or chills. No NVD, rashes, headache. In July she had that neck fusion surgery. Her left foot is somewhat altered after that. She denies any other weakness or tingling. She takes [place] for neck and back pain that's chronic. She otherwise takes Tylenol. She has a slight amount of dysuria. There is no hematuria. Is no nausea, vomiting, indigestion or change in her bowels. She denies diarrhea or constipation. History of COPD. H/O pulmonary hypertension. Allergies: Coded Allergies: MORPHINE (Verified Allergy, Severe, Itching, 12/09/14) RIOCIGUAT (Verified Allergy, Severe, 11/04/17) SILDENAFIL (Verified Allergy, Severe, 11/04/17) OXYCODONE (Verified Adverse Reaction, Severe, 12/09/14) FEELS BAD/WEAK Patient History Past Medical History: see triage record Past Surgical History: other - Neck fusion Social History: Denies: smoking Social History Narrative at home Now: No Reviewed Nursing Documentation: PMH: Agreed; PSxH: Agreed Nursing Documentation-PMH Past Medical History: No History, Except For Hx Cardiac Problems: Yes - heart valve,neck surgery 4times Hx Hypertension: Yes Hx COPD: Yes Hx Cancer: No Hx Gastrointestinal Problems: Yes Hx Neurological Problems: Yes Hx Spinal Cord Injury: Yes Hx Memory Loss: Yes Hx Tremors: Yes Hx Vertigo: Yes Hx Dizziness: Yes Hx Headaches: Yes Hx Weakness: Yes Hx Fatigue: Yes Review of Systems All Other Systems: negative except mentioned in HPI Physical Exam Vital Signs Date Time Temp Pulse Resp B/P (MAP) Pulse Ox O2 Delivery O2 Flow Rate FiO2 12/25/17 14:16 98.3 92 18 100/52 98 Room Air 98.2 Sp02 EP Interpretation: reviewed, normal General Appearance: well appearing, no apparent distress, GCS 15 Head: normocephalic Eyes: bilateral eye normal inspection, bilateral eye PERRL, bilateral eye other - exopthalmous ENT: moist mucus membranes Neck: full range of motion, supple, other - anterior surgical scar Respiratory: lungs clear, normal breath sounds Cardiovascular #1: regular rate, rhythm Cardiovascular #2: 2+ radial (R) Gastrointestinal: normal inspection, normal bowel sounds, non tender, no mass, non-distended Musculoskeletal: back normal, gait/station normal, normal range of motion Neurologic: alert, oriented x3, grossly normal Psychiatric: depressed affect Skin: normal inspection, warm/dry, other - she notes some changes of her L foot which are not appreciated by examiner Medical Decision Making Diagnostic Impression: Primary Impression: Chest pain Qualified Codes: R07.9 - Chest pain, unspecified Additional Impression: Pulmonary hypertension ER Course Patient presents with chest pain with history of COPD and pulmonary hypertension. Differential includes acute myocardial infarction, acute coronary syndrome, pneumonia, COPD exacerbation, pleurisy, chest wall pain amongst others. The patient be evaluated with EKG, chest x-ray and labs. The patient states she doesn't want to take strong narcotics of however she will be given a small dose of Dilaudid. Pain is improved with aspirin and nitrates which she just possible cardiac cause. EKG was normal sinus rhythm and normal EKG no injury normal intervals. CXR COPD. Labs with initial troponin negative. Hypercarbia. Tox screen + for opiates, barbiturates and benzodiazepines. Improved with treatment. Patient needs r/o NC. Admitting to telemetry. She states we do not have her medication. Pharmacy contacted and suggest Rx to fill at [facility] tomorrow. Analgesia repeated as continued chest pain. Contact Dr. Martin and Dr. Alvarado for admission. Laboratory Tests Test 12/25/17 14:25 12/25/17 14:35 White Blood Count 4.7 K/UL (4.8-10.8) L Red Blood Count 3.71 M/UL (4.20-5.40) L Hemoglobin 11.5 G/DL (12.0-16.0) L Hematocrit 35.3 % (37.0-47.0) L Mean Corpuscular Volume 95 FL (80-99) Mean Corpuscular Hemoglobin 30.9 PG (27.0-31.0) Mean Corpuscular Hemoglobin Concent 32.5 G/DL (32.0-36.0) Red Cell Distribution Width 12.2 % (11.6-14.8) Platelet Count 211 K/UL (150-450) Mean Platelet Volume 7.2 FL (6.5-10.1) Neutrophils (%) (Auto) 59.3 % (45.0-75.0) Lymphocytes (%) (Auto) 27.3 % (20.0-45.0) Monocytes (%) (Auto) 9.2 % (1.0-10.0) Eosinophils (%) (Auto) 2.6 % (0.0-3.0) Basophils (%) (Auto) 1.5 % (0.0-2.0) Prothrombin Time 9.9 SEC (9.30-11.50) Prothrombin Time INR 0.9 (0.9-1.1) PTT 25 SEC (23-33) Sodium Level 140 MMOL/L (136-145) Potassium Level 4.2 MMOL/L (3.5-5.1) Chloride Level 103 MMOL/L (98-107) Carbon Dioxide Level 34 MMOL/L (21-32) H Anion Gap 4 mmol/L (5-15) L Blood Urea Nitrogen 8 mg/dL (7-18) Creatinine 0.6 MG/DL (0.55-1.30) Estimate Glomerular Filtration Rate > 60 mL/min (>60) Glucose Level 100 MG/DL (74-106) Calcium Level 8.7 MG/DL (8.5-10.1) Total Bilirubin 0.2 MG/DL (0.2-1.0) Aspartate Amino Transferase (AST) 13 U/L (15-37) L Alanine Aminotransferase (ALT) 20 U/L (12-78) Alkaline Phosphatase 92 U/L (46-116) Total Creatine Kinase 65 U/L (26-308) Troponin I 0.012 ng/mL (0.000-0.056) Pro-B-Type Natriuretic Peptide 23 pg/mL (0-125) Total Protein 6.2 G/DL (6.4-8.2) L Albumin 3.0 G/DL (3.4-5.0) L Globulin 3.2 g/dL Albumin/Globulin Ratio 0.9 (1.0-2.7) L Urine Color Pale yellow Urine Appearance Clear Urine pH 5 (4.5-8.0) Urine Specific [place] 1.015 (1.005-1.035) Urine Protein 1+ (NEGATIVE) H Urine Glucose (UA) Negative (NEGATIVE) Urine Ketones Negative (NEGATIVE) Urine Blood 4+ (NEGATIVE) H Urine Nitrite Negative (NEGATIVE) Urine Bilirubin Negative (NEGATIVE) Urine Urobilinogen Normal MG/DL (0.0-1.0) Urine Leukocyte Esterase 1+ (NEGATIVE) H Urine RBC 10-15 /HPF (0 - 2) H Urine WBC 2-4 /HPF (0 - 2) Urine Squamous Epithelial Cells Few /LPF (NONE/OCC) Urine Bacteria Occasional /HPF (NONE) Urine Opiates Screen Positive (NEGATIVE) H Urine Barbiturates Screen Positive (NEGATIVE) H Phencyclidine (PCP) Screen Negative (NEGATIVE) Urine Amphetamines Screen Negative (NEGATIVE) Urine Benzodiazepines Screen Positive (NEGATIVE) H Urine Cocaine Screen Negative (NEGATIVE) Urine Marijuana (THC) Screen Negative (NEGATIVE) EKG Diagnostic Results Rate: normal Rhythm: NSR ST Segments: no acute changes Rhythm Strip Diag. Results EP Interpretation: yes Rhythm: NSR, no PVC's, no ectopy Chest X-Ray Diagnostic Results Chest X-Ray Diagnostic Results : Chest X-Ray Ordered: Yes # of Views/Limited/Complete: 1 View Indication: Chest Pain EP Interpretation: Yes Interpretation: no consolidation, no effusion, no pneumothorax, other - COPD and neck fusion Impression: Other Electronically Signed by: Electronically signed by Martin Callejas MD Last Vital Signs Date Time Temp Pulse Resp B/P (MAP) Pulse Ox O2 Delivery O2 Flow Rate FiO2 12/25/17 21:00 Nasal Cannula 2.0 12/25/17 20:32 83 18 28 12/25/17 20:32 98 12/25/17 18:00 96.8 107/61 (76) 96.8 Status: improved Disposition: ADMITTED INPATIENT Condition: Serious Martin Callejas M.D. Dec 25, 2017 14:30
[2017-12-25 14:45] LABS: BASOPHILS % (AUTO) 1.5 % (0.0-2.0); EOSINOPHILS % (AUTO) 2.6 % (0.0-3.0); HEMATOCRIT 35.3 % (37.0-47.0); HEMOGLOBIN 11.5 G/DL (12.0-16.0); LYMPHOCYTES % (AUTO) 27.3 % (20.0-45.0); MEAN CORPUSCULAR VOLUME 95 FL (80-99); MONOCYTES % (AUTO) 9.2 % (1.0-10.0); NEUTROPHILS % (AUTO) 59.3 % (45.0-75.0); PLATELET COUNT 211 K/UL (150-450); RED BLOOD COUNT 3.71 M/UL (4.20-5.40); RED CELL DISTRIBUTION WIDTH 12.2 % (11.6-14.8); WHITE BLOOD COUNT 4.7 K/UL (4.8-10.8)
[2017-12-25] MEDS ORDERED: Hydromorphone 0.5mg/0.5ml inj IVP ONE (14:45)
[2017-12-25 14:48] LABS: APPEARANCE,URINE CLEAR; BILIRUBIN, URINE NEGATIVE (NEGATIVE); COLOR,URINE PALE YELLOW; GLUCOSE, URINE (UA) NEGATIVE (NEGATIVE); KETONES,URINE NEGATIVE (NEGATIVE); LEUKOCYTE ESTERASE ,URINE 1+ (NEGATIVE); NITRITE,URINE NEGATIVE (NEGATIVE); PH,URINE 5 (4.5-8.0); PROTEIN,URINE 1+ (NEGATIVE); UROBILINOGEN,URINE NORMAL MG/DL (0.0-1.0)
[2017-12-25 14:52] LABS: ANION GAP 4 mmol/L (5-15); BLOOD UREA NITROGEN 8 mg/dL (7-18); CALCIUM 8.7 MG/DL (8.5-10.1); CARBON DIOXIDE 34 MMOL/L (21-32); CHLORIDE 103 MMOL/L (98-107); CREATININE 0.6 MG/DL (0.55-1.30); INR 0.9 (0.9-1.1); POTASSIUM 4.2 MMOL/L (3.5-5.1); SODIUM 140 MMOL/L (136-145)
[2017-12-25 15:04] LABS: ALANINE AMINOTRANSFERASE 20 U/L (12-78); ALBUMIN/GLOBULIN RATIO 0.9 (1.0-2.7); ALKALINE PHOSPHATASE 92 U/L (46-116); ASPARTATE AMINO TRANSFERASE 13 U/L (15-37); BILIRUBIN,TOTAL 0.2 MG/DL (0.2-1.0); CREATINE KINASE 65 U/L (26-308)
[2017-12-25] MEDS ORDERED: Hydromorphone 0.5mg/0.5ml inj IVP STA (16:09)
[2017-12-25 16:21] VITALS: BP 117/100
[2017-12-25] MEDS ORDERED: Albuterol/Ipratropium 3ml neb HHN PRN (17:49)
[2017-12-25 18:00] VITALS: BP 107/61
[2017-12-25] MEDS ORDERED: SUMAtriptan 100mg tab ORAL PRN (18:00)
[2017-12-25] MEDS ORDERED: HYDROmorphone 1mg/ml Carpuject IVP PRN (19:21)
[2017-12-25 20:00] VITALS: BP 98/60
[2017-12-25] MEDS: Sertraline 50mg tab ORAL SCH (20:17)
[2017-12-25] MEDS: HYDROcodone/Acetamin 10/325 tab ORAL PRN (20:19)
[2017-12-25] MEDS: Heparin 5000 units/ml inj SUBQ SCH (20:20)
[2017-12-25] MEDS: cefTRIAXone 1 GM in D5W 55 ML IVPB SCH (20:47)
[2017-12-25] MEDS: HYDROmorphone 1mg/ml Carpuject IVP PRN (23:15)
[2017-12-26] VITALS: BP 97/58
[2017-12-26 04:00] VITALS: BP 107/69
[2017-12-26] MEDS: HYDROcodone/Acetamin 10/325 tab ORAL PRN (04:14)
[2017-12-26] MEDS: HYDROmorphone 1mg/ml Carpuject IVP PRN (07:21)
[2017-12-26 08:00] VITALS: BP 117/63
[2017-12-26] MEDS: Vitamin D 1000 IU Tab ORAL SCH ×2 (08:26→08:27)
[2017-12-26] MEDS: Lactobacillus-GG tablet ORAL SCH (08:27)
[2017-12-26] MEDS: Vitamin B-12 500mcg tab ORAL SCH (08:27)
[2017-12-26] MEDS: Ascorbic Acid 500mg tab ORAL SCH (08:27)
[2017-12-26] MEDS: Aspirin Baby 81mg ORAL SCH (08:27)
[2017-12-26] MEDS: Heparin 5000 units/ml inj SUBQ SCH ×2 (08:28→20:43)
--- NOTE | 2017-12-26 09:00 | History and Physical Report ---
DATE OF ADMISSION: 12/25/2017 CHIEF COMPLAINT: Chest pain. HISTORY OF PRESENT ILLNESS: The patient is a pleasant 57-year-old female, well known to me. She has a history of COPD and cervical radiculopathy. She has a prior history of neck surgery, COPD, migraines, who presented with complaints of chest pain. According to the patient, she was well until the day of admission when she developed chest pain while sitting on a couch. The pain was pressure-like and sharp, did not change with movement. There was no associated shortness of breath. The patient denies any fevers or chills. She has had no cough. She did have an episode of hemoptysis the day prior. She presented to the emergency room, she received a dose of aspirin and nitroglycerin with some improvement in her pain. Her initial set of enzymes and EKG were unremarkable. She has been placed on supplemental oxygen. She is now admitted for further evaluation and care. Currently, her chest pain is resolved. PAST MEDICAL HISTORY: As above. PAST SURGICAL HISTORY: Includes neck surgery. CURRENT MEDICATIONS: Reconciled and reviewed. ALLERGIES: Include morphine, oxycodone, , sildenafil. FAMILY HISTORY: Noncontributory. SOCIAL HISTORY: The patient is a prior heavy smoker. No alcohol. No drugs. REVIEW OF SYSTEMS: GENERAL: No fever or chills. HEENT: No headaches or visual changes. CARDIOPULMONARY: Positive chest pain. No shortness of breath. GASTROINTESTINAL: No nausea or vomiting. GENITOURINARY: No urgency or frequency. MUSCULOSKELETAL: No joint pain or swelling. NEUROLOGIC: No evidence of seizures. PHYSICAL EXAMINATION: VITAL SIGNS: Temperature 97, pulse 85, respirations 20, and blood pressure 107/61. GENERAL: The patient is well developed, in no apparent distress. HEART: Regular rate and rhythm. LUNGS: Significant for sparse bibasilar rales, mostly on the right. ABDOMEN: Soft, nontender, nondistended. EXTREMITIES: Without clubbing, cyanosis, or edema. LABORATORY DATA: White count 4, hemoglobin 11, hematocrit 35. Sodium 140, potassium 4.2, chloride 103, bicarbonate 34. BUN was 8, creatinine 0.6. Coagulation studies normal. UA showed 10 to 15 red blood cells. ASSESSMENT: This is a pleasant female, admitted with chest pain, unclear etiology. Possibilities could include underlying pneumonia, acute coronary syndrome, pulmonary embolism. PLAN: 1. The patient will be started on antibiotics to cover for pneumonia. 2. We will repeat chest x-ray tomorrow. 3. We will check a venous duplex of the lower extremities. 4. Continue aspirin. 5. DVT prophylaxis. Continue outpatient pain regimen. 6. Pulmonary consultation and Cardiology consultation will be obtained. Nish Alvarado M.D. DR: ILANA JOB#: [id number] CC:
[2017-12-26] MEDS: Cyclobenzaprine 10mg Tab ORAL SCH ×3 (09:30→17:52)
--- NOTE | 2017-12-26 10:56 | Diagnostic Imaging Report ---
Indication: Chest pain Comparison: 11/04/2017 A single view chest radiograph was obtained. Findings: Cardiomediastinal appearance is within normal limits for age. The lungs are clear. Pulmonary vascularity is appropriate. The diaphragmatic contour is smooth and costophrenic angles are sharp. No pleural effusions are identified. The bones are osteopenic. Impression: No acute findings
--- NOTE | 2017-12-26 11:22 | Pulmonology Progress Note ---
Subjective Allergies: Coded Allergies: MORPHINE (Verified Allergy, Severe, Itching, 12/09/14) RIOCIGUAT (Verified Allergy, Severe, 11/04/17) SILDENAFIL (Verified Allergy, Severe, 11/04/17) OXYCODONE (Verified Adverse Reaction, Severe, 12/09/14) FEELS BAD/WEAK Objective Last 24 Hour Vital Signs Date Time Temp Pulse Resp B/P (MAP) Pulse Ox O2 Delivery O2 Flow Rate FiO2 12/26/17 09:00 Nasal Cannula 2.0 12/26/17 08:11 90 20 94 Nasal Cannula 3.0 32 12/26/17 08:10 80 20 Nasal Cannula 2.0 28 12/26/17 08:10 93 Nasal Cannula 3.0 32 12/26/17 08:10 90 20 93 Nasal Cannula 3.0 32 12/26/17 08:10 Nasal Cannula 3.0 32 12/26/17 08:00 97.9 92 18 117/63 (81) 93 97.9 12/26/17 08:00 104 12/26/17 04:50 84 12/26/17 04:00 97.9 92 18 107/69 (82) 94 97.9 12/26/17 00:00 98.0 85 17 97/58 (71) 100 98.0 12/25/17 23:51 83 12/25/17 21:00 Nasal Cannula 2.0 12/25/17 20:32 83 18 Nasal Cannula 2.0 28 12/25/17 20:32 83 18 98 Nasal Cannula 2.0 28 12/25/17 20:00 98.0 87 18 98/60 (73) 95 98.0 12/25/17 19:01 84 12/25/17 18:00 96.8 85 20 107/61 (76) 94 96.8 12/25/17 17:52 Room Air 12/25/17 16:48 81 21 117/100 100 Nasal Cannula 2.0 12/25/17 16:44 98.7 12/25/17 16:21 98.7 81 21 117/100 100 Room Air 2.0 98.7 12/25/17 16:14 98.2 12/25/17 15:15 98.2 12/25/17 14:45 98.2 12/25/17 14:29 100/52 12/25/17 14:22 84 17 Nasal Cannula 2.0 12/25/17 14:22 98.2 84 17 109/63 100 Room Air 98.2 12/25/17 14:16 98.3 92 18 100/52 98 Room Air 98.2 Intake and Output 12/25/17 12/26/17 19:00 07:00 Intake Total 240 ml 255 ml Output Total 100 ml Balance 140 ml 255 ml Intake Oral 240 ml 200 ml IV Total 55 ml Output Urine Total 100 ml # Voids 2 3 # Bowel Movements 1 Laboratory Tests 12/25/17 14:25: White Blood Count 4.7L, Red Blood Count 3.71L, Hemoglobin 11.5L, Hematocrit 35.3L, Mean Corpuscular Volume 95, Mean Corpuscular Hemoglobin 30.9, Mean Corpuscular Hemoglobin Concent 32.5, Red Cell Distribution Width 12.2, Platelet Count 211, Mean Platelet Volume 7.2, Neutrophils (%) (Auto) 59.3, Lymphocytes (% ) (Auto) 27.3, Monocytes (%) (Auto) 9.2, Eosinophils (%) (Auto) 2.6, Basophils ( %) (Auto) 1.5, Prothrombin Time 9.9, Prothromb Time International Ratio 0.9, Activated Partial Thromboplast Time 25, Sodium Level 140, Potassium Level 4.2, Chloride Level 103, Carbon Dioxide Level 34H, Anion Gap 4L, Blood Urea Nitrogen 8, Creatinine 0.6, Estimat Glomerular Filtration Rate > 60, Glucose Level 100, Calcium Level 8.7, Total Bilirubin 0.2, Aspartate Amino Transf (AST/SGOT) 13L, Alanine Aminotransferase (ALT/SGPT) 20, Alkaline Phosphatase 92, Total Creatine Kinase 65, Troponin I 0.012, Pro-B-Type Natriuretic Peptide 23, Total Protein 6.2L, Albumin 3.0L, Globulin 3.2, Albumin/Globulin Ratio 0.9L 12/25/17 14:35: Urine Color Pale yellow, Urine Appearance Clear, Urine pH 5, Urine Specific [place] 1.015, Urine Protein 1+H, Urine Glucose (UA) Negative, Urine Ketones Negative, Urine Blood 4+H, Urine Nitrite Negative, Urine Bilirubin Negative, Urine Urobilinogen Normal, Urine Leukocyte Esterase 1+H, Urine RBC 10-15H, Urine WBC 2-4, Urine Squamous Epithelial Cells Few, Urine Bacteria Occasional, Urine Opiates Screen PositiveH, Urine Barbiturates Screen PositiveH, Phencyclidine (PCP) Screen Negative, Urine Amphetamines Screen Negative, Urine Benzodiazepines Screen PositiveH, Urine Cocaine Screen Negative, Urine Marijuana (THC) Screen Negative Current Medications Medications (Trade) Dose Ordered Sig/[place] Route PRN Reason Start Time Stop Time Status Last Admin Dose Admin Acetaminophen (Tylenol) 650 mg Q6H PRN ORAL Mild Pain/Temp > 100.5 12/26/17 10:15 01/25/18 10:14 12/26/17 10:39 Acetaminophen/ Hydrocodone Bitart ([place] 10) 1 tab Q4H PRN ORAL For Pain 12/25/17 19:15 01/01/18 19:14 12/26/17 04:14 Albuterol/ Ipratropium (Albuterol/ Ipratropium) 3 ml Q4H PRN HHN Shortness of Breath 12/25/17 17:49 12/30/17 17:48 12/25/17 20:32 Ascorbic Acid (Vitamin C) 500 mg DAILY ORAL 12/26/17 09:00 01/25/18 08:59 12/26/17 08:27 Aspirin (ASA) 81 mg DAILY ORAL 12/26/17 09:00 01/25/18 08:59 12/26/17 08:27 Atorvastatin Calcium (Lipitor) 10 mg BEDTIME ORAL 12/25/17 21:00 01/24/18 20:59 12/25/17 20:17 Budesonide/ Formoterol Fumarate (Symbicort 160/ 4.5) 2 puff TWICE A DAY INH 12/26/17 09:00 01/25/18 08:59 12/26/17 08:09 Ceftriaxone Sodium 1 gm/ Dextrose 55 ml @ 110 mls/hr Q24H IVPB 12/25/17 21:00 01/01/18 20:59 12/25/17 20:47 Clonazepam (KlonoPIN) 2 mg BEDTIME PRN ORAL For Anxiety 12/25/17 18:00 01/01/18 17:59 12/25/17 20:17 Cyanocobalamin (Vitamin B-12) 1,000 mcg DAILY ORAL 12/26/17 09:00 01/25/18 08:59 12/26/17 08:27 Cyclobenzaprine HCl (Flexeril) 10 mg THREE TIMES A DAY ORAL 12/26/17 09:30 01/25/18 09:29 12/26/17 09:30 Gabapentin (Neurontin) 300 mg DAILY ORAL 12/26/17 09:00 01/25/18 08:59 12/26/17 08:29 Heparin Sodium (Porcine) (Heparin 5000 units/ml) 5,000 units EVERY 12 HOURS SUBQ 12/25/17 21:00 01/24/18 20:59 12/26/17 08:28 Hydromorphone HCl (Dilaudid) 1 mg Q4H PRN IVP For Pain 12/25/17 19:22 01/01/18 19:20 12/26/17 07:21 Lactobacillus Acidophilus (Culturelle) 1 tab DAILY ORAL 12/26/17 09:00 01/25/18 08:59 12/26/17 08:27 Lamotrigine (LaMICtal) 25 mg BID ORAL 12/25/17 18:00 01/24/18 17:59 12/26/17 08:29 Multivitamins (Multivitamins) 1 tab DAILY ORAL 12/26/17 09:00 01/25/18 08:59 12/26/17 08:28 Non-Formulary Medication (Non-Formulary Med) 1 ea DAILY ORAL 12/26/17 09:00 01/25/18 08:59 UNV Non-Formulary Medication (Non-Formulary Med) 1 ea DAILY ORAL 12/26/17 09:00 01/25/18 08:59 UNV Pantoprazole (Protonix) 40 mg DAILY ORAL 12/26/17 09:00 01/25/18 08:59 12/26/17 08:27 Primidone (Mysoline) 50 mg TID ORAL 12/25/17 18:00 01/24/18 17:59 12/26/17 08:29 Sertraline HCl (Zoloft) 50 mg BEDTIME ORAL 12/25/17 21:00 01/24/18 20:59 12/25/17 20:17 Sumatriptan Succinate (Imitrex) 100 mg DAILYPRN PRN ORAL For headache Pain 12/25/17 18:00 01/24/18 17:59 Vitamin D (Vitamin D) 1,000 intlu DAILY ORAL 12/26/17 09:00 01/25/18 08:59 Bala Martin MD Dec 26, 2017 11:22
--- NOTE | 2017-12-26 11:29 | Consultation ---
Consult Note Consult Note 57-year-old female, with long standing history of COPD and cervical radiculopathy. Patient with end stage COPD and chronically on oxygen. According to the patient , she developed chest pain. The pain was pressure-like and sharp, did not change with movement. Patient with chronic shortness of breath. The patient denies any fevers or chills. She has had no cough. She presented to the emergency room, and admitted to tele. She has been on supplemental oxygen. She is now admitted for further evaluation and care. Currently, she is comfortable. CXR negative overall PAST MEDICAL HISTORY: COPD, pulmonary hypertension, cervical disc disease, chronic pain, neuropathy PAST SURGICAL HISTORY: Cervical surgery. CURRENT MEDICATIONS: Reconciled and reviewed. ALLERGIES: reviewed FAMILY HISTORY: Noncontributory. SOCIAL HISTORY: The patient is a prior heavy smoker. No alcohol. No drugs. disabled; on chronic oxygen REVIEW OF SYSTEMS: all reviewed and discussed 10 points reviewed in detail PHYSICAL EXAMINATION: GENERAL: The patient is well developed, in no apparent distress. NAD HEENT: negative HEART: Regular rate and rhythm. without MRG LUNGS: reduced air entry; no rhonchi or wheeze ABDOMEN: Soft, nontender, nondistended. no HSM EXTREMITIES: Without clubbing, cyanosis, or edema. NEURO: nonfocal; weak Labs Test 12/25/17 14:25 12/25/17 14:35 White Blood Count 4.7 K/UL (4.8-10.8) Red Blood Count 3.71 M/UL (4.20-5.40) Hemoglobin 11.5 G/DL (12.0-16.0) Hematocrit 35.3 % (37.0-47.0) Mean Corpuscular Volume 95 FL (80-99) Mean Corpuscular Hemoglobin 30.9 PG (27.0-31.0) Mean Corpuscular Hemoglobin Concent 32.5 G/DL (32.0-36.0) Red Cell Distribution Width 12.2 % (11.6-14.8) Platelet Count 211 K/UL (150-450) Mean Platelet Volume 7.2 FL (6.5-10.1) Neutrophils (%) (Auto) 59.3 % (45.0-75.0) Lymphocytes (%) (Auto) 27.3 % (20.0-45.0) Monocytes (%) (Auto) 9.2 % (1.0-10.0) Eosinophils (%) (Auto) 2.6 % (0.0-3.0) Basophils (%) (Auto) 1.5 % (0.0-2.0) Prothrombin Time 9.9 SEC (9.30-11.50) Prothromb Time International Ratio 0.9 (0.9-1.1) Activated Partial Thromboplast Time 25 SEC (23-33) Sodium Level 140 MMOL/L (136-145) Potassium Level 4.2 MMOL/L (3.5-5.1) Chloride Level 103 MMOL/L (98-107) Carbon Dioxide Level 34 MMOL/L (21-32) Anion Gap 4 mmol/L (5-15) Blood Urea Nitrogen 8 mg/dL (7-18) Creatinine 0.6 MG/DL (0.55-1.30) Estimat Glomerular Filtration Rate > 60 mL/min (>60) Glucose Level 100 MG/DL (74-106) Calcium Level 8.7 MG/DL (8.5-10.1) Total Bilirubin 0.2 MG/DL (0.2-1.0) Aspartate Amino Transf (AST/SGOT) 13 U/L (15-37) Alanine Aminotransferase (ALT/SGPT) 20 U/L (12-78) Alkaline Phosphatase 92 U/L (46-116) Total Creatine Kinase 65 U/L (26-308) Troponin I 0.012 ng/mL (0.000-0.056) Pro-B-Type Natriuretic Peptide 23 pg/mL (0-125) Total Protein 6.2 G/DL (6.4-8.2) Albumin 3.0 G/DL (3.4-5.0) Globulin 3.2 g/dL Albumin/Globulin Ratio 0.9 (1.0-2.7) Urine Color Pale yellow Urine Appearance Clear Urine pH 5 (4.5-8.0) Urine Specific [place] 1.015 (1.005-1.035) Urine Protein 1+ (NEGATIVE) Urine Glucose (UA) Negative (NEGATIVE) Urine Ketones Negative (NEGATIVE) Urine Blood 4+ (NEGATIVE) Urine Nitrite Negative (NEGATIVE) Urine Bilirubin Negative (NEGATIVE) Urine Urobilinogen Normal MG/DL (0.0-1.0) Urine Leukocyte Esterase 1+ (NEGATIVE) Urine RBC 10-15 /HPF (0 - 2) Urine WBC 2-4 /HPF (0 - 2) Urine Squamous Epithelial Cells Few /LPF (NONE/OCC) Urine Bacteria Occasional /HPF (NONE) Urine Opiates Screen Positive (NEGATIVE) Urine Barbiturates Screen Positive (NEGATIVE) Phencyclidine (PCP) Screen Negative (NEGATIVE) Urine Amphetamines Screen Negative (NEGATIVE) Urine Benzodiazepines Screen Positive (NEGATIVE) Urine Cocaine Screen Negative (NEGATIVE) Urine Marijuana (THC) Screen Negative (NEGATIVE) IMPRESSION COPD chronic dyspnea chronic hypoxemia chest pain possible ACS pulmonary hypertension PLAN respiratory care oxygen therapy may dc antibiotics cards clearance DVT prophylaxis close follow up impression, plan, and exam edited and reviewed in detail care discussed with Bala Zhang MD Dec 26, 2017 11:29
[2017-12-26 11:55] VITALS: BP 124/75
--- NOTE | 2017-12-26 14:43 | Cardiology Report ---
APPROVED REPORT EKG Measurement Heart [id number] Normal sinus rhythm Normal ECG
[2017-12-26 16:02] VITALS: BP 128/83
--- NOTE | 2017-12-26 16:38 | Diagnostic Imaging Report ---
Indication: Neck pain. Technique: Continuous helical imaging of the cervical spine was obtained transaxially from the skull base to the upper thoracic spine. 2-D coronal and sagittal reformatted images were obtained. Automatic Exposure Control was utilized. Total Dose length Product (DLP): 311.[address] Dose Index Volume (CTDIvol): 14.24 mGy Comparison: None Findings: The examination shows multilevel laminectomy C3-C4 C5-C6 with associated fusion rods and lateral mass screws. Corpectomy and discectomy at C3-4, C4-5 and C5-6 noted with interbody fusion. Anterior compression plate at C7 T1 noted was well. Alignment is normal. There is metallic artifact limiting evaluation of the study especially in the central canal is largely obscured. The bones are osteopenic. No acute fracture identified. No large fluid collections identified. The central canal region is difficult to evaluate on this exam and the epidural collections and the like are not the evaluated. There are also screw tracks multiple locations anteriorly indicative of hardware removal. IMPRESSION: Cervical fusion as described above. Altered level laminectomy. No acute findings appreciated. Significant limitations as above The CT scanner at [facility] is accredited by the [employer] and the scans are performed using dose optimization techniques as appropriate to a performed exam including Automatic Exposure control.
--- NOTE | 2017-12-26 18:51 | General Progress Note ---
Assessment/Plan Problem List: (1) UTI (urinary tract infection) ICD Codes: N39.0 - Urinary tract infection, site not specified SNOMED: 67810669 (2) COPD (chronic obstructive pulmonary disease) with acute bronchitis ICD Codes: J44.1 - COPD (chronic obstructive pulmonary disease) with acute bronchitis SNOMED: 57389204 (3) Pulmonary hypertension ICD Codes: I27.20 - Pulmonary hypertension, unspecified SNOMED: 23444188 (4) Chest pain ICD Codes: R07.9 - Chest pain SNOMED: 47917204 Qualifiers: Qualified Codes: R07.9 - Chest pain, unspecified Status: stable Assessment/Plan o2 resp rx dc abx per pulm pain rx pt/ot Subjective ROS Limited/Unobtainable: No Constitutional: Reports: malaise, weakness HEENT: Reports: no symptoms Cardiovascular: Reports: no symptoms Respiratory: Reports: cough, shortness of breath Gastrointestinal/Abdominal: Reports: no symptoms Genitourinary: Reports: no symptoms Neurologic/Psychiatric: Reports: no symptoms Endocrine: Reports: no symptoms Hematologic/Lymphatic: Reports: no symptoms Allergies: Coded Allergies: MORPHINE (Verified Allergy, Severe, Itching, 12/09/14) RIOCIGUAT (Verified Allergy, Severe, 11/04/17) SILDENAFIL (Verified Allergy, Severe, 11/04/17) OXYCODONE (Verified Adverse Reaction, Severe, 12/09/14) FEELS BAD/WEAK All Systems: reviewed and negative except above Subjective c/o headaches. no chest pain no sob. no fever or chills. Objective Last 24 Hour Vital Signs Date Time Temp Pulse Resp B/P (MAP) Pulse Ox O2 Delivery O2 Flow Rate FiO2 12/26/17 16:03 80 12/26/17 16:02 97.5 79 18 128/83 (98) 98 97.5 12/26/17 12:24 93 12/26/17 11:55 96.6 88 18 124/75 (91) 92 96.6 12/26/17 09:00 Nasal Cannula 2.0 12/26/17 08:11 90 20 94 Nasal Cannula 3.0 32 12/26/17 08:10 80 20 Nasal Cannula 2.0 28 12/26/17 08:10 93 Nasal Cannula 3.0 32 12/26/17 08:10 90 20 93 Nasal Cannula 3.0 32 12/26/17 08:10 Nasal Cannula 3.0 32 12/26/17 08:00 97.9 92 18 117/63 (81) 93 97.9 12/26/17 08:00 104 12/26/17 04:50 84 12/26/17 04:00 97.9 92 18 107/69 (82) 94 97.9 12/26/17 00:00 98.0 85 17 97/58 (71) 100 98.0 12/25/17 23:51 83 12/25/17 21:00 Nasal Cannula 2.0 12/25/17 20:32 83 18 Nasal Cannula 2.0 28 12/25/17 20:32 83 18 98 Nasal Cannula 2.0 28 12/25/17 20:00 98.0 87 18 98/60 (73) 95 98.0 12/25/17 19:01 84 Intake and Output 12/25/17 12/26/17 19:00 07:00 Intake Total 240 ml 255 ml Output Total 100 ml Balance 140 ml 255 ml Intake Oral 240 ml 200 ml IV Total 55 ml Output Urine Total 100 ml # Voids 2 3 # Bowel Movements 1 Height (Feet): 5 Height (Inches): 7.00 Weight (Pounds): 150 General Appearance: WD/WN, alert Neck: supple Cardiovascular: regular rhythm Respiratory/Chest: lungs clear, normal breath sounds, no respiratory distress Abdomen: normal bowel sounds, non tender, soft, no organomegaly Edema: no edema noted Arm (L), no edema noted Arm (R), no edema noted Leg (L), no edema noted Leg (R), no edema noted Pedal (L), no edema noted Pedal (R), no edema noted Generalized Nish Alvarado MD Dec 26, 2017 18:51
[2017-12-26] MEDS: Excedrin Migraine tab ORAL PRN (19:47)
[2017-12-26 20:00] VITALS: BP 127/80
[2017-12-26] MEDS: Sertraline 50mg tab ORAL SCH (20:34)
[2017-12-26] MEDS: cefTRIAXone 1 GM in D5W 55 ML IVPB SCH (20:35)
[2017-12-27] VITALS: BP 131/74
[2017-12-27 04:00] VITALS: BP 134/78
[2017-12-27] MEDS: Excedrin Migraine tab ORAL PRN ×2 (07:38→16:15)
[2017-12-27 08:00] VITALS: BP 105/64
[2017-12-27] MEDS: Aspirin Baby 81mg ORAL SCH (08:25)
[2017-12-27] MEDS: Vitamin B-12 500mcg tab ORAL SCH (08:25)
[2017-12-27] MEDS: Lactobacillus-GG tablet ORAL SCH (08:25)
[2017-12-27] MEDS: Vitamin D 1000 IU Tab ORAL SCH (08:25)
[2017-12-27] MEDS: Ascorbic Acid 500mg tab ORAL SCH (08:25)
[2017-12-27] MEDS: Cyclobenzaprine 10mg Tab ORAL SCH ×3 (08:26→17:40)
[2017-12-27] MEDS: Heparin 5000 units/ml inj SUBQ SCH ×2 (09:00→20:45)
[2017-12-27] MEDS: HYDROcodone/Acetamin 10/325 tab ORAL PRN (11:36)
[2017-12-27 12:00] VITALS: BP 123/63
[2017-12-27 16:00] VITALS: BP 115/74
--- NOTE | 2017-12-27 17:45 | General Progress Note ---
Assessment/Plan Problem List: (1) UTI (urinary tract infection) ICD Codes: N39.0 - Urinary tract infection, site not specified SNOMED: 69755187 (2) COPD (chronic obstructive pulmonary disease) with acute bronchitis ICD Codes: J44.1 - COPD (chronic obstructive pulmonary disease) with acute bronchitis SNOMED: 28115183 (3) Pulmonary hypertension ICD Codes: I27.20 - Pulmonary hypertension, unspecified SNOMED: 12029245 (4) Chest pain ICD Codes: R07.9 - Chest pain SNOMED: 50984735 Qualifiers: Qualified Codes: R07.9 - Chest pain, unspecified Status: stable, progressing Assessment/Plan o2 resp rx pain rx bp rx pt/ot Subjective ROS Limited/Unobtainable: Yes Constitutional: Reports: malaise, weakness HEENT: Reports: no symptoms Cardiovascular: Reports: no symptoms Respiratory: Reports: cough, shortness of breath Gastrointestinal/Abdominal: Reports: no symptoms Genitourinary: Reports: no symptoms Neurologic/Psychiatric: Reports: no symptoms Endocrine: Reports: no symptoms Hematologic/Lymphatic: Reports: no symptoms Allergies: Coded Allergies: MORPHINE (Verified Allergy, Severe, Itching, 12/09/14) RIOCIGUAT (Verified Allergy, Severe, 11/04/17) SILDENAFIL (Verified Allergy, Severe, 11/04/17) OXYCODONE (Verified Adverse Reaction, Severe, 12/09/14) FEELS BAD/WEAK All Systems: reviewed and negative except above Subjective c/o headaches. no chest pain no sob. no fever or chills. "im sure its my migraines." given multiple meds without relief Objective Last 24 Hour Vital Signs Date Time Temp Pulse Resp B/P (MAP) Pulse Ox O2 Delivery O2 Flow Rate FiO2 12/27/17 17:40 98.5 12/27/17 17:14 98.5 12/27/17 17:14 98.5 12/27/17 16:15 98.5 12/27/17 16:00 59 12/27/17 16:00 98.5 86 18 115/74 (88) 99 98.5 12/27/17 14:29 98.2 12/27/17 12:06 98.2 12/27/17 12:00 98.2 86 18 123/63 (83) 99 98.2 12/27/17 12:00 88 12/27/17 11:36 98.6 12/27/17 09:00 Nasal Cannula 2.0 12/27/17 08:27 Nasal Cannula 3.0 32 12/27/17 08:27 Nasal Cannula 3.0 32 12/27/17 08:26 98.6 12/27/17 08:00 84 12/27/17 08:00 98.6 94 18 105/64 (78) 100 98.6 12/27/17 07:38 98.2 12/27/17 07:24 100 Nasal Cannula 3.0 32 12/27/17 07:24 Nasal Cannula 3.0 32 12/27/17 04:00 98.2 78 18 134/78 (96) 97 98.2 12/27/17 04:00 92 12/27/17 00:00 86 12/27/17 00:00 97.9 85 17 131/74 (93) 96 97.9 12/26/17 21:00 Nasal Cannula 2.0 12/26/17 20:00 83 12/26/17 20:00 97.7 83 19 127/80 (96) 96 97.7 12/26/17 19:08 Nasal Cannula 3.0 32 12/26/17 19:07 81 18 94 Nasal Cannula 3.0 32 12/26/17 19:07 94 Nasal Cannula 3.0 32 12/26/17 19:05 81 18 94 Nasal Cannula 3.0 32 Intake and Output 12/26/17 12/27/17 19:00 07:00 Intake Total 560 ml 480 ml Balance 560 ml 480 ml Intake Oral 560 ml 480 ml # Voids 3 3 Height (Feet): 5 Height (Inches): 7.00 Weight (Pounds): 150 Objective General Appearance: WD/WN, alert Neck: supple Cardiovascular: regular rhythm Respiratory/Chest: lungs clear, normal breath sounds, no respiratory distress Abdomen: normal bowel sounds, non tender, soft, no organomegaly Edema: no edema noted Arm (L), no edema noted Arm (R), no edema noted Leg (L), no edema noted Leg (R), no edema noted Pedal (L), no edema noted Pedal (R), no edema noted Generalized Nish Alvarado MD Dec 27, 2017 17:45
[2017-12-27 20:00] VITALS: BP 110/57
[2017-12-27] MEDS: cefTRIAXone 1 GM in D5W 55 ML IVPB SCH (20:41)
[2017-12-27] MEDS: Sertraline 50mg tab ORAL SCH (20:42)
--- NOTE | 2017-12-27 21:15 | Pulmonology Progress Note ---
Assessment/Plan Assessment/Plan COPD chronic hypoxemia pulmonary hypertension hypertension debility cervical fusion PLAN respiratory care po antibiotics oxygen maintain same for now dc planning impression, plan, and exam edited and reviewed in detail care discussed with RN Subjective Allergies: Coded Allergies: MORPHINE (Verified Allergy, Severe, Itching, 12/09/14) RIOCIGUAT (Verified Allergy, Severe, 11/04/17) SILDENAFIL (Verified Allergy, Severe, 11/04/17) OXYCODONE (Verified Adverse Reaction, Severe, 12/09/14) FEELS BAD/WEAK Subjective stable no cp reviewed imaging Objective Last 24 Hour Vital Signs Date Time Temp Pulse Resp B/P (MAP) Pulse Ox O2 Delivery O2 Flow Rate FiO2 12/27/17 20:22 97 Nasal Cannula 2.0 28 12/27/17 20:22 Nasal Cannula 2.0 28 12/27/17 20:10 78 18 97 Nasal Cannula 2.0 28 12/27/17 20:10 78 18 97 Nasal Cannula 2.0 28 12/27/17 17:40 98.5 12/27/17 17:14 98.5 12/27/17 17:14 98.5 12/27/17 16:15 98.5 12/27/17 16:00 59 12/27/17 16:00 98.5 86 18 115/74 (88) 99 98.5 12/27/17 14:29 98.2 12/27/17 12:06 98.2 12/27/17 12:00 98.2 86 18 123/63 (83) 99 98.2 12/27/17 12:00 88 12/27/17 11:36 98.6 12/27/17 09:00 Nasal Cannula 2.0 12/27/17 08:27 Nasal Cannula 3.0 32 12/27/17 08:27 Nasal Cannula 3.0 32 12/27/17 08:26 98.6 12/27/17 08:00 84 12/27/17 08:00 98.6 94 18 105/64 (78) 100 98.6 12/27/17 07:38 98.2 12/27/17 07:24 100 Nasal Cannula 3.0 32 12/27/17 07:24 Nasal Cannula 3.0 32 12/27/17 04:00 98.2 78 18 134/78 (96) 97 98.2 12/27/17 04:00 92 12/27/17 00:00 86 12/27/17 00:00 97.9 85 17 131/74 (29) 96 97.9 Intake and Output 12/26/17 12/27/17 19:00 07:00 Intake Total 560 ml 480 ml Balance 560 ml 480 ml Intake Oral 560 ml 480 ml # Voids 3 3 Objective WDWN NAD reduced breath sounds bilaterally without rhonchi or wheeze [id number] without MRG NABS nontender no HSM no CCE nonfocal weak Microbiology Date/Time Source Procedure Growth Status 12/26/17 04:00 Sputum Expectorated Gram Stain - Final Resulted 12/26/17 04:00 Sputum Expectorated Sputum Culture - Preliminary NO GROWTH Resulted Current Medications Medications (Trade) Dose Ordered Sig/Celeste Route PRN Reason Start Time Stop Time Status Last Admin Dose Admin Acetaminophen (Tylenol) 650 mg Q6H PRN ORAL Mild Pain/Temp > 100.5 12/26/17 10:15 01/25/18 10:14 12/26/17 10:39 Acetaminophen/ Aspirin/Caffeine (Excedrin Migraine) 2 ea Q6H PRN ORAL For Migraine 12/26/17 18:56 01/25/18 18:55 12/27/17 16:15 Acetaminophen/ Hydrocodone Bitart ([place] 10/325) 1 tab Q4H PRN ORAL For Pain 12/25/17 19:15 01/01/18 19:14 12/27/17 11:36 Albuterol/ Ipratropium (Albuterol/ Ipratropium) 3 ml Q4H PRN HHN Shortness of Breath 12/25/17 17:49 12/30/17 17:48 12/25/17 20:32 Amitriptyline HCl (Elavil) 75 mg BEDTIME ORAL 12/27/17 21:00 01/26/18 20:59 12/27/17 20:42 Ascorbic Acid (Vitamin C) 500 mg DAILY ORAL 12/26/17 09:00 01/25/18 08:59 12/27/17 08:25 Aspirin (ASA) 81 mg DAILY ORAL 12/26/17 09:00 01/25/18 08:59 12/27/17 08:25 Atorvastatin Calcium (Lipitor) 10 mg BEDTIME ORAL 12/25/17 21:00 01/24/18 20:59 12/27/17 20:42 Budesonide/ Formoterol Fumarate (Symbicort 160/ 4.5) 2 puff TWICE A DAY INH 12/26/17 09:00 01/25/18 08:59 12/27/17 20:23 Ceftriaxone Sodium 1 gm/ Dextrose 55 ml @ 110 mls/hr Q24H IVPB 12/25/17 21:00 01/01/18 20:59 12/27/17 20:41 Clonazepam (KlonoPIN) 2 mg BEDTIME PRN ORAL For Anxiety 12/25/17 18:00 01/01/18 17:59 12/27/17 20:42 Cyanocobalamin (Vitamin B-12) 1,000 mcg DAILY ORAL 12/26/17 09:00 01/25/18 08:59 12/27/17 08:25 Cyclobenzaprine HCl (Flexeril) 10 mg THREE TIMES A DAY ORAL 12/26/17 09:30 01/25/18 09:29 12/27/17 17:40 Gabapentin (Neurontin) 300 mg Q8H ORAL 12/26/17 22:00 01/25/18 21:59 12/27/17 14:29 Heparin Sodium (Porcine) (Heparin 5000 units/ml) 5,000 units EVERY 12 HOURS SUBQ 12/25/17 21:00 01/24/18 20:59 12/27/17 20:45 Hydromorphone HCl (Dilaudid) 1 mg Q4H PRN IVP For Pain 12/25/17 19:22 01/01/18 19:20 12/26/17 07:21 Lactobacillus Acidophilus (Culturelle) 1 tab DAILY ORAL 12/26/17 09:00 01/25/18 08:59 12/27/17 08:25 Lamotrigine (LaMICtal) 25 mg Q12HR ORAL 12/27/17 21:00 01/26/18 20:59 12/27/17 20:42 Multivitamins (Multivitamins) 1 tab DAILY ORAL 12/26/17 09:00 01/25/18 08:59 12/27/17 08:25 Ondansetron HCl (Zofran) 4 mg Q6H PRN IVP Nausea & Vomiting 12/26/17 12:53 01/25/18 12:52 12/26/17 13:01 Pantoprazole (Protonix) 40 mg DAILY ORAL 12/26/17 09:00 01/25/18 08:59 12/27/17 08:26 Patient Own Medication (Patient's Own Med) 1 ea DAILY ORAL 12/27/17 09:00 01/26/18 08:59 12/27/17 08:26 Patient Own Medication (Patient's Own Med) 1 ea QHS ORAL 12/26/17 21:00 01/25/18 20:59 12/27/17 20:42 Primidone (Mysoline) 50 mg TID ORAL 12/25/17 18:00 01/24/18 17:59 12/27/17 17:40 Sertraline HCl (Zoloft) 50 mg BEDTIME ORAL 12/25/17 21:00 01/24/18 20:59 12/27/17 20:42 Sumatriptan Succinate (Imitrex) 100 mg DAILYPRN PRN ORAL For headache Pain 12/25/17 18:00 01/24/18 17:59 12/26/17 13:06 Vitamin D (Vitamin D) 1,000 intlu DAILY ORAL 12/26/17 09:00 01/25/18 08:59 12/27/17 08:25 Bala Martin MD Dec 27, 2017 21:15
[2017-12-28] VITALS: BP 114/52
[2017-12-28 04:00] VITALS: BP 112/67
[2017-12-28 08:00] VITALS: BP 119/69
[2017-12-28] MEDS: Aspirin Baby 81mg ORAL SCH (09:08)
[2017-12-28] MEDS: Vitamin D 1000 IU Tab ORAL SCH (09:08)
[2017-12-28] MEDS: Lactobacillus-GG tablet ORAL SCH (09:09)
[2017-12-28] MEDS: Vitamin B-12 500mcg tab ORAL SCH (09:09)
[2017-12-28] MEDS: Ascorbic Acid 500mg tab ORAL SCH (09:09)
[2017-12-28] MEDS: Heparin 5000 units/ml inj SUBQ SCH (09:10)
[2017-12-28] MEDS: Cyclobenzaprine 10mg Tab ORAL SCH ×2 (09:16→14:17)
[2017-12-28 12:39] VITALS: BP 132/82
--- NOTE | 2017-12-28 13:25 | Pulmonology Progress Note ---
Assessment/Plan Assessment/Plan COPD chronic hypoxemia pulmonary hypertension hypertension debility cervical fusion PLAN respiratory care as is po antibiotics oxygen at home; already using maintain same for now dc planning to home today home health on discharge impression, plan, and exam edited and reviewed in detail care discussed with RN Subjective Allergies: Coded Allergies: MORPHINE (Verified Allergy, Severe, Itching, 12/09/14) RIOCIGUAT (Verified Allergy, Severe, 11/04/17) SILDENAFIL (Verified Allergy, Severe, 11/04/17) OXYCODONE (Verified Adverse Reaction, Severe, 12/09/14) FEELS BAD/WEAK Subjective stable no cp reviewed imaging very weak Objective Last 24 Hour Vital Signs Date Time Temp Pulse Resp B/P (MAP) Pulse Ox O2 Delivery O2 Flow Rate FiO2 12/28/17 12:39 98.2 83 21 132/82 (99) 98 98.2 12/28/17 12:00 81 12/28/17 09:46 97.3 12/28/17 09:18 Nasal Cannula 2.0 28 12/28/17 09:18 96 Nasal Cannula 2.0 28 12/28/17 09:18 72 16 96 Nasal Cannula 2.0 28 12/28/17 09:18 72 16 96 Nasal Cannula 2.0 28 12/28/17 09:16 97.3 12/28/17 09:00 Nasal Cannula 2.0 12/28/17 08:00 97.2 86 20 119/69 (86) 99 97.2 12/28/17 08:00 87 12/28/17 04:00 88 12/28/17 04:00 97.3 93 18 112/67 (82) 98 97.3 12/28/17 00:00 104 12/28/17 00:00 97.9 97 19 114/52 (72) 92 97.9 12/27/17 21:00 Nasal Cannula 2.0 12/27/17 20:22 97 Nasal Cannula 2.0 28 12/27/17 20:22 Nasal Cannula 2.0 28 12/27/17 20:10 78 18 97 Nasal Cannula 2.0 28 12/27/17 20:10 78 18 97 Nasal Cannula 2.0 28 12/27/17 20:00 93 12/27/17 20:00 98.1 97 17 110/57 (74) 100 98.1 12/27/17 17:40 98.5 10/9/18 17:14 98.5 12/27/17 16:15 98.5 12/27/17 16:00 59 12/27/17 16:00 98.5 86 18 115/74 (88) 99 98.5 12/27/17 14:29 98.2 Intake and Output 12/27/17 12/28/17 19:00 07:00 Intake Total 1320 ml Balance 1320 ml Intake Oral 1320 ml # Voids 5 3 # Bowel Movements 1 Objective WDWN NAD reduced breath sounds bilaterally without rhonchi or wheeze [id number] without MRG NABS nontender no HSM no CCE nonfocal weak alert Microbiology Date/Time Source Procedure Growth Status 12/26/17 04:00 Sputum Expectorated Gram Stain - Final Resulted 12/26/17 04:00 Sputum Culture - Preliminary YEAST Usual Respiratory [place] Resulted Current Medications Medications (Trade) Dose Ordered Sig/Celeste Route PRN Reason Start Time Stop Time Status Last Admin Dose Admin Acetaminophen (Tylenol) 650 mg Q6H PRN ORAL Mild Pain/Temp > 100.5 12/26/17 10:15 01/25/18 10:14 12/26/17 10:39 Acetaminophen/ Aspirin/Caffeine (Excedrin Migraine) 2 ea Q6H PRN ORAL For Migraine 12/26/17 18:56 01/25/18 18:55 12/27/17 16:15 Acetaminophen/ Hydrocodone Bitart ([place] 10/325) 1 tab Q4H PRN ORAL For Pain 12/25/17 19:15 01/01/18 19:14 12/27/17 11:36 Albuterol/ Ipratropium (Albuterol/ Ipratropium) 3 ml Q4H PRN HHN Shortness of Breath 12/25/17 17:49 12/30/17 17:48 12/25/17 20:32 Amitriptyline HCl (Elavil) 75 mg BEDTIME ORAL 12/27/17 21:00 01/26/18 20:59 12/27/17 20:42 Ascorbic Acid (Vitamin C) 500 mg DAILY ORAL 12/26/17 09:00 01/25/18 08:59 12/28/17 09:09 Aspirin (ASA) 81 mg DAILY ORAL 12/26/17 09:00 01/25/18 08:59 12/28/17 09:08 Atorvastatin Calcium (Lipitor) 10 mg BEDTIME ORAL 12/25/17 21:00 01/24/18 20:59 12/27/17 20:42 Budesonide/ Formoterol Fumarate (Symbicort 160/ 4.5) 2 puff TWICE A DAY INH 12/26/17 09:00 01/25/18 08:59 12/28/17 09:33 Ceftriaxone Sodium 1 gm/ Dextrose 55 ml @ 110 mls/hr Q24H IVPB 12/25/17 21:00 01/01/18 20:59 12/27/17 20:41 Clonazepam (KlonoPIN) 2 mg BEDTIME PRN ORAL For Anxiety 12/25/17 18:00 01/01/18 17:59 12/27/17 20:42 Cyanocobalamin (Vitamin B-12) 1,000 mcg DAILY ORAL 12/26/17 09:00 01/25/18 08:59 12/28/17 09:09 Cyclobenzaprine HCl (Flexeril) 10 mg THREE TIMES A DAY ORAL 12/26/17 09:30 01/25/18 09:29 12/28/17 09:16 Gabapentin (Neurontin) 300 mg Q8H ORAL 12/26/17 22:00 01/25/18 21:59 12/28/17 05:27 Heparin Sodium (Porcine) (Heparin 5000 units/ml) 5,000 units EVERY 12 HOURS SUBQ 12/25/17 21:00 01/24/18 20:59 12/28/17 09:10 Hydromorphone HCl (Dilaudid) 1 mg Q4H PRN IVP For Pain 12/25/17 19:22 01/01/18 19:20 12/26/17 07:21 Lactobacillus Acidophilus (Culturelle) 1 tab DAILY ORAL 12/26/17 09:00 01/25/18 08:59 12/28/17 09:09 Lamotrigine (LaMICtal) 25 mg Q12HR ORAL 12/27/17 21:00 01/26/18 20:59 12/28/17 09:09 Multivitamins (Multivitamins) 1 tab DAILY ORAL 12/26/17 09:00 01/25/18 08:59 12/28/17 09:09 Ondansetron HCl (Zofran) 4 mg Q6H PRN IVP Nausea & Vomiting 12/26/17 12:53 01/25/18 12:52 12/26/17 13:01 Pantoprazole (Protonix) 40 mg DAILY ORAL 12/26/17 09:00 01/25/18 08:59 12/28/17 09:09 Patient Own Medication (Patient's Own Med) 1 ea DAILY ORAL 12/27/17 09:00 01/26/18 08:59 12/28/17 09:16 Patient Own Medication (Patient's Own Med) 1 ea QHS ORAL 12/26/17 21:00 01/25/18 20:59 12/27/17 20:42 Primidone (Mysoline) 50 mg TID ORAL 12/25/17 18:00 01/24/18 17:59 12/28/17 09:09 Sertraline HCl (Zoloft) 50 mg BEDTIME ORAL 12/25/17 21:00 01/24/18 20:59 12/27/17 20:42 Sumatriptan Succinate (Imitrex) 100 mg DAILYPRN PRN ORAL For headache Pain 12/25/17 18:00 01/24/18 17:59 12/26/17 13:06 Vitamin D (Vitamin D) 1,000 intlu DAILY ORAL 12/26/17 09:00 01/25/18 08:59 12/28/17 09:08 Bala Martin MD Dec 28, 2017 13:25
--- NOTE | 2017-12-28 15:04 | Diagnostic Imaging Report ---
APPROVED REPORT CPT Code: 83045 Present Symptoms Comments: Pain BILATERAL: Imaging reveals a patent deep venous system bilaterally. There is no evidence of thrombus within the femoral, popliteal or tibial segments. The greater saphenous veins are also within normal limits. Doppler indicates normal spontaneous flow within these segments.
--- NOTE | 2017-12-28 15:09 | Diagnostic Imaging Report ---
Indication: Cough Technique: Continuous helical transaxial imaging of the chest was obtained from the thoracic inlet to the upper abdomen. No intravenous contrast was administered. Coronal 2-D reformats were also obtained. Total Dose length Product (DLP): [address] Dose Index Volume (CTDIvol): 19, 0.15 mGy Comparison: none Findings: Mild bronchiectasis demonstrated posterior medial aspect of the right lower lobe in the superior segment. This is associated with reticular densities and the findings are likely due to mild focus of fibrosis. This may be postinflammatory given the focal cavity of the abnormality. Correlate clinically. Mild hyperlucency noted in the apical aspects of both upper lobes consistent with the mild emphysema and COPD. Correlate clinically. There is no consolidation identified. No pleural effusion identified. No adenopathy seen. Aorta is mildly calcified. Heart is normal in size. The visualized part of the upper abdomen is unremarkable in appearance. The axilla appear clear bilaterally. Partial visualization anterior compression plate and fixation screws at C7-T1. IMPRESSION: Mild chronic lung disease demonstrated: Focal scarring with mild bronchiectasis and a patch of fibrosis noted in the superior segment of the right lower lobe, likely postinflammatory/infectious. Suggestion of mild emphysematous changes in the apical aspects of both upper lobes. Mild atherosclerotic vascular disease. Status post interbody fusion at C7-T1 The CT scanner at [facility] is accredited by the [employer] and the scans are performed using dose optimization techniques as appropriate to a performed exam including Automatic Exposure control.
[2017-12-28 16:00] VITALS: BP 115/70
--- NOTE | 2017-12-29 07:51 | Discharge Summary ---
Discharge Summary Discharge Summary _ DATE OF ADMISSION: 12/25/2017 DATE OF DISCHARGE: 12/28/2017 CONSULTANTS: Dr. Bala Martin BRIEF HOSPITAL COURSE: Patient is a 57-year-old female, with history of COPD and cervical radiculopathy and migraine, who presented to ED with complaints of chest pain. According to patient, she was well until the day of admission when she developed chest pain while sitting on the couch. Pain was pressure-like and sharp, did not change with movement, there was no associated shortness of breath. She took [place] and her albuterol inhaler. Symptoms persisted and paramedics were summoned. She was given aspirin and nitroglycerin spray by paramedics. She denied cough, fever or chills. She had an episode of hemoptysis the day prior. On evaluation at ED, vital signs were stable. Initial troponin was negative. EKG showed normal sinus rhythm with no injury. Chest x-ray showed no acute findings. Urinalysis with 1+ leukocyte esterase, 10-15 RBC, 2-4 WBC. Urine toxicology was positive for opiates, barbiturates and benzodiazepines. Symptoms improved post aspirin and nitrate administration. She was admitted for evaluation of chest pain. She was started on ceftriaxone to cover for pneumonia and possible UTI. Venous duplex of lower extremity was negative for DVT. She was continued on aspirin. She was given respiratory care and oxygen therapy. He was given nebulizer treatment and Symbicort. Cervical spine CT showed cervical fusion on CT 3 through C6. There was no acute findings. Chest CT showed mild chronic lung disease. Focal scarring with mild bronchiectasis and fibrosis in the superior segment of the right lower lobe, likely post inflammatory/infectious, mild emphysematous changes. Sputum culture showed growth of yeast and usual respiratory [place]. She was saturating well on 2 L nasal cannula. She was cleared for discharge home to continue oxygen and antibiotics at home. FINAL DIAGNOSES: Urinary tract infection COPD with acute bronchitis Chest pain due to above Chronic hypoxemia Pulmonary hypertension Hypertension Debility Cervical fusion DISPOSITION: Patient was discharged home. DISCHARGE MEDICATIONS: Refer to Discharge Medication List. DISCHARGE INSTRUCTIONS: Follow up with PCP in a week. I have been assigned to dictate discharge summary on this account, and I was not involved in the patient's management. Martine Ayala NP Dec 29, 2017 07:51
== END 2017-12-28 17:25 | disposition home or self-care (01) | DRG 202 ==
LOC: EDBD 14:22 → EMR 14:54 → EDBEDREQ 15:35 → 2E 15:46
DX: J20.9 Acute bronchitis, unspecified (principal); N39.0 Urinary tract infection, site not specified; R09.02 Hypoxemia; I27.20 Pulmonary hypertension, unspecified; J44.9 Chronic obstructive pulmonary disease, unspecified; R07.89 Other chest pain; I10 Essential (primary) hypertension; R53.81 Other malaise; M54.12 Radiculopathy, cervical region; Z98.1 Arthrodesis status; Z87.891 Personal history of nicotine dependence; Z88.6 Allergy status to analgesic agent; Z88.8 Allergy status to other drugs, medicaments and biological substances; G62.9 Polyneuropathy, unspecified
CPT/HCPCS: 36415; 71045; 71250; 72125; 80053; 80307; 81003; 82550; 83880; 84484; 85025; 85610; 85730; 87070; 87205; 93005; 93970; 94640; 94664; 94760; 96374; 96375; 99285; J2405; J7620

== ENCOUNTER 2018-04-11 18:11 | Emergency (ER) | payer MEDICARE, OTHER ==
[~2018-04-11] VITALS: Ht 167.6 cm; Wt 68.0 kg
[~2018-04-11 18:11] MED LIST changes: +UNOBMED
[2018-04-11 18:16] VITALS: BP 132/65
--- NOTE | 2018-04-11 18:16 | NUR ---
ED Nurse Note: pt was brought in by [id number], due to SOB, per pt she was taking a shower and felt shortness of breath and immediately called for ambulance. pt is in no pain. pt did not take any medications.
--- NOTE | 2018-04-11 18:20 | NUR ---
Attempted to take EKG, patient became verbally agressive. ERMD notified. Will attempt EKG once patient is calm.
[2018-04-11] MEDS ORDERED: Solu-MEDROL 125mg Inj IVP ONE (18:30)
--- NOTE | 2018-04-11 18:30 | NUR ---
ED Nurse Note: breathing treatment complete.
[2018-04-11] MEDS: Albuterol ud Inhalation HHN SCH ×3 (18:40→19:07)
[2018-04-11] MEDS: Ipratropium 0.02% Inh Soln 2.5ml UD HHN SCH ×3 (18:40→19:07)
--- NOTE | 2018-04-11 18:44 | Emergency Room Report ---
History of Present Illness General Chief Complaint: Dyspnea/Respdistress Source: Patient, EMS Present Illness HPI 57yo f w/ h/o COPD on 2L home O2, pulm htn, p/w SOB x 1 day, tried home nebs without much relief, no fever above 99.3, +dry cough, no chest pain. Allergies: Coded Allergies: MORPHINE (Verified Allergy, Severe, Itching, 12/09/14) RIOCIGUAT (Verified Allergy, Severe, 11/04/17) SILDENAFIL (Verified Allergy, Severe, 11/04/17) OXYCODONE (Verified Adverse Reaction, Severe, 12/09/14) FEELS BAD/WEAK Patient History Past Medical History: see triage record Now: No Reviewed Nursing Documentation: PMH: Agreed; PSxH: Agreed Nursing Documentation-PMH Past Medical History: No History, Except For Hx Cardiac Problems: Yes - heart valve,neck surgery 4times Hx Hypertension: Yes Hx Asthma: No - COPD Hx COPD: Yes Hx Cancer: No Hx Gastrointestinal Problems: Yes Hx Neurological Problems: Yes Hx Spinal Cord Injury: Yes Hx Memory Loss: Yes Hx Tremors: Yes Hx Vertigo: Yes Hx Dizziness: Yes Hx Headaches: Yes Hx Weakness: Yes Hx Fatigue: Yes Review of Systems All Other Systems: negative except mentioned in HPI Physical Exam Vital Signs Date Time Temp Pulse Resp B/P (MAP) Pulse Ox O2 Delivery O2 Flow Rate FiO2 04/11/18 18:06 101 18 144/78 98 Room Air 04/11/18 18:40 15.0 100 Sp02 EP Interpretation: reviewed, normal General Appearance: no apparent distress, alert, non-toxic Head: normocephalic Eyes: bilateral eye normal inspection, bilateral eye PERRL, bilateral eye EOMI ENT: normal ENT inspection, hearing grossly normal, normal pharynx, no angioedema, normal voice, moist mucus membranes Neck: normal inspection, full range of motion, supple, supple/symm/no masses Respiratory: chest non-tender, decreased breath sounds, accessory muscle use, speaking full sentences, wheezing, other - poor air movement, chest symmetrical , palpation of chest normal Cardiovascular #1: normal peripheral pulses, regular rate, rhythm Cardiovascular #2: 2+ radial (R), 2+ radial (L) Gastrointestinal: normal inspection, non tender, soft, no mass, no guarding, no rebound Rectal: deferred Genitourinary: normal inspection, no CVA tenderness Musculoskeletal: back normal, gait/station normal, normal range of motion, non- tender, no calf tenderness Neurologic: alert, responsive, 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 Patient feel some improvement here with first nebs, will admit for continued treatment. Accepted to [facility] EKG Diagnostic Results EKG Time: 18:28 EP Interpretation: no stemi Rate: normal Rhythm: NSR ST Segments: no acute changes ASA given to the pt in ED: No Rhythm Strip Diag. Results Rhythm Strip Time: 18:53 EP Interpretation: yes Rate: 85 Rhythm: NSR, no PVC's, no ectopy Chest X-Ray Diagnostic Results Chest X-Ray Diagnostic Results : Chest X-Ray Ordered: Yes # of Views/Limited/Complete: 1 View Indication: Shortness of Breath EP Interpretation: Yes Interpretation: no consolidation, no effusion, no pneumothorax, no acute cardiopulmonary disease Impression: No acute disease Electronically Signed by: Chago Rudd MD Last Vital Signs Date Time Temp Pulse Resp B/P (MAP) Pulse Ox O2 Delivery O2 Flow Rate FiO2 04/11/18 18:41 81 22 Non-Rebreather 15.0 100 04/11/18 18:40 99 04/11/18 18:06 144/78 CHAGO RUDD M.D Apr 11, 2018 18:44
[2018-04-11 18:46] LABS: BASOPHILS % (AUTO) 1.9 % (0.0-2.0); EOSINOPHILS % (AUTO) 2.1 % (0.0-3.0); HEMATOCRIT 38.3 % (37.0-47.0); HEMOGLOBIN 11.8 G/DL (12.0-16.0); LYMPHOCYTES % (AUTO) 17.1 % (20.0-45.0); MEAN CORPUSCULAR VOLUME 97 FL (80-99); MONOCYTES % (AUTO) 6.8 % (1.0-10.0); NEUTROPHILS % (AUTO) 72.1 % (45.0-75.0); PLATELET COUNT 227 K/UL (150-450); RED BLOOD COUNT 3.95 M/UL (4.20-5.40); RED CELL DISTRIBUTION WIDTH 12.2 % (11.6-14.8); WHITE BLOOD COUNT 6.8 K/UL (4.8-10.8)
[2018-04-11 19:02] LABS: ANION GAP 9 mmol/L (5-15); BLOOD UREA NITROGEN 7 mg/dL (7-18); CALCIUM 9.3 MG/DL (8.5-10.1); CARBON DIOXIDE 31 MMOL/L (21-32); CHLORIDE 101 MMOL/L (98-107); CREATININE 0.6 MG/DL (0.55-1.30); POTASSIUM 3.7 MMOL/L (3.5-5.1); SODIUM 141 MMOL/L (136-145)
[2018-04-11 19:07] LABS: ALANINE AMINOTRANSFERASE 22 U/L (12-78); ALBUMIN 3.6 G/DL (3.4-5.0); ALBUMIN/GLOBULIN RATIO 1.1 (1.0-2.7); ALKALINE PHOSPHATASE 84 U/L (46-116); ASPARTATE AMINO TRANSFERASE 23 U/L (15-37); BILIRUBIN,TOTAL 0.3 MG/DL (0.2-1.0)
[2018-04-11 21:17] VITALS: BP 126/57
[2018-04-11 21:30] VITALS: BP 126/57
--- NOTE | 2018-04-11 21:30 | NUR ---
ED Nurse Note: Patient being transferred to [facility] via [id number]. Patient AOx4, VSS, ambulatory with steady gait, no s/s of acute distress noted at this time. Patient report given to Ana M RODRIGUEZ . Patient sent with all personal belongings.
--- NOTE | 2018-04-12 10:34 | Diagnostic Imaging Report ---
Indication: Shortness of breath Technique: One view of the chest Comparison: 12/25/2017 Findings: Cervical spine fusion hardware is again noted. Lungs and pleural spaces remain clear. The heart size is normal. There is no significant interim change Impression: No acute process
--- NOTE | 2018-04-12 18:25 | Cardiology Report ---
APPROVED REPORT EKG Measurement Heart [id number] Sinus rhythm with premature atrial complexes Otherwise normal ECG
== END 2018-04-11 21:30 | disposition short-term general hospital (02) ==
LOC: EDBD 18:11 → EMR 18:44
DX: J44.9 Chronic obstructive pulmonary disease, unspecified (principal); I10 Essential (primary) hypertension
CPT/HCPCS: 36415; 71045; 80053; 83880; 84484; 85025; 86710; 93005; 94640; 94664; 96374; 99284; J2930